=== PATIENT | female | born 1955 | race Caucasian/White ===

== ENCOUNTER 2019-08-21 13:55 | Outpatient (RCR) | payer MEDICARE, SELFPAY ==
[2019-08-21 14:48] LABS: Basophils # 0.1 10^3/uL (0.0-0.1); Basophils % 0.4 %; Eosinophils # 0.3 10^3/uL (0.0-0.8); Hematocrit 40.6 % (37.0-47.0); Hemoglobin 12.9 g/dL (11.5-15.3); Lymphocytes # 19.6 10^3/uL (0.8-4.8); Mean Corpuscular HGB Conc 31.8 g/dL (30.0-36.0); Mean Corpuscular Hemoglobin 29.8 pg (28.0-34.0); Mean Corpuscular Volume 93.8 fL (81-99); Mean Platelet Volume 10.6 fL (7.4-10.4); Monocytes # 0.9 10^3/uL (0.2-0.9); Monocytes % 3.3 %; Neutrophils # 4.6 10^3/uL (1.8-7.7); Nucleated Red Blood Cells % 0 %; Platelet Count 347 10^3/cmm (130-400); Red Blood Count 4.33 10^6/uL (4.1-5.3); Red Cell Distribution Width 13.7 % (12.1-15.1); White Blood Count 25.4 10^3/uL (4.0-10.0)
[2019-08-21 15:07] LABS: Alanine Aminotransferase 14 U/L (0-33); Albumin Level 5.5 g/dL (3.5-5.2); Alkaline Phosphatase 106 IU/L (35-105); Anion Gap 16.3 (5-19); Aspartate Amino Transferase 19 U/L (0-32); Blood Urea Nitrogen 9 mg/dL (8-23); Carbon Dioxide 25 mmol/L (22-29); Chloride 102 mmol/L (98-107); Globulin 1.2 g/dL (1.3-4.6); Glomerular Filtration Rate 83.7 mL/min (90-130); Glucose 98 mg/dL (74-106); Lactate Dehydrogenase 176 U/L (135-214); Potassium 4.3 mmol/L (3.5-5.1); Sodium 139 mmol/L (136-145); Total Bilirubin 0.3 mg/dL (0.15-1.2); Total Protein 6.7 g/dL (6.6-8.7)
== END 2019-09-19 23:59 | disposition home or self-care (01) ==
LOC: ONCMED 13:55
PROVIDERS: Family Provider Family Medicine; Visit Provider Internal Medicine Medical Oncology
DX: C91.10 Chronic lymphocytic leukemia of B-cell type not having achieved remission (principal); E78.5 Hyperlipidemia, unspecified; L71.9 Rosacea, unspecified; Z98.1 Arthrodesis status; I34.1 Nonrheumatic mitral (valve) prolapse
CPT/HCPCS: 80053; 83615; 85025

== ENCOUNTER 2019-08-27 12:23 | Outpatient (RCR) | payer MEDICARE, SELFPAY ==
--- NOTE | 2019-09-01 10:43 | ONC FU_ITS ---
Dr. Oakley Patient Follow-Up Note Patient: Sera Ragsdale Unit #: [id number]: [id number] Dicatated By: Randall Oakley M.D.Date of Visit:Aug 27, 2019 Onc Med Follow-up/Prog Note Chief Complaint: Lymphocytosis. History of Present Illness: This is a 63 year-old woman with chronic leukocytic leukemia, Alvarado stage 0. She has been in good general health. In February 2019 she had been seen by Dr. Shell to establish primary care. Her initial evaluation included laboratory studies on 03/20/2019. CBC at that time showed normal hemoglobin at 13.2 g with hematocrit 39.5%. The white blood cell count was elevated at 23,100. The platelet count was normal at 313,000. The differential included 73% lymphocytes, 18% neutrophils, 6% monocytes, and 3% eosinophils. Comprehensive metabolic profile showed normal renal function with BUN 18 and creatinine 0.65 mg/dL. The liver enzymes were normal. Her repeat CBC on 04/10/2019 showed similar findings with hemoglobin 13.0 g, white blood cell count 25,000, and platelet count 312,000. The differential included 83% lymphocytes, 14% neutrophils, and 3% monocytes. I had seen her initially on 05/08/2019. 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 Mantle cell lymphoma was not entirely excluded, but not favored due to strong CD200 expression. She had subsequently returned for a CLL prognostic profile. Her chromosome analysis an abnormal karyotype which included a translocation between chromosomes 2 and 7 as well as a translocation between two chromosomes 14, observed and 16 out of 20 metaphases. The clinical significance of that finding was uncertain. 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 In addition, 66% of her lymphoid cells were noted to be CD19 positive. Of these, 15% showed positivity for ZAP70 and 5% showed positivity for CD38. Overall, the findings were felt to be consistent with an intermediate prognostic profile, and in the setting of early stage disease, observation/expectant management was recommended. Her other medical illnesses include hyperlipidemia and rosacea. She was diagnosed with mitral valve prolapse at age 24. She had an appendectomy in 1969. She underwent L4-L5 laminectomy in 1981 for an injury related blown disc . She had previous surgery on her left foot for an injury. She suffered bilateral ankle fractures in 2017, but did not require surgery. She is a nonsmoker. She is seen for a follow-up visit. She continues to complain that she gets tired, but she still has normal activity. ECOG score is 0. Her appetite is good. Her weight is up a little. She has not had fever. She occasionally has night sweating. She also complains that she gets headaches. She also has had some arthritis pain in her right thumb. She has no focal neurologic symptoms. She has no other significant complaints. Medications: Berberine Complex (500 mg) Capsule Oral Take as Directed, Biotin 1 Tablet (of 5000 mcg) Capsule Oral daily, Cinnamon 1 Capsule (of 500 mg) Oral b.i.d., Multivitamins 1 Capsule Oral daily, Red Yeast Rice 2 Capsule (of 1200 mg) Oral daily Allergies: Adhesives Review of Systems: Constitutional - She complains that she gets tired, but she has normal activity. Her appetite is good. Her weight is up a little. No fever. She occasionally has night sweating. ECOG score is 0, ENMT - She has sinus drainage. No mouth sores. No sore throat or difficulty swallowing, Hematologic/Lymphatic - She bruises easily, Respiratory - No shortness of breath. No cough. No pleuritic pain or hemoptysis, Cardiovascular - No angina pain. No palpitations, Gastrointestinal - No nausea or vomiting. No heartburn or acid reflux. No diarrhea or constipation. No blood in the stool or black stools, Genitourinary (F) - No dysuria or hematuria. No urinary frequency. No urgency or incontinence, Musculoskeletal - She has arthritis in her right thumb. She has no other joint or bone pain, Integumentary - No skin complications, Neurologic - She has headaches occasionally. No dizziness. No numbness/paresthesias or other focal neurologic symptoms, Psychiatric - No anxiety or depression. She has trouble falling asleep. Vital Signs: Performed on Aug 27, 2019 12:36 Height - 64.00 in Weight - 166.8 lbs (LOW) BSA - 1.81 sq.m BMI - 28.63 Temperature - 97.9 F (LOW) Pulse - 89 /min Respiration - 15 /min BP - 134/68 mm(hg) O2 Sat - 98 % Pain - 0 Physical Examination: Constitutional - She looks good generally, Eyes - Sclerae nonicteric. Conjunctivae clear, ENMT - No lesions noted in the oral cavity, Hematologic/Lymphatic - No cervical, clavicular, or axillary adenopathy, Respiratory - Lungs are clear with good air movement bilaterally, Cardiovascular - Heart rhythm is regular. There is no murmur, gallop, or rub noted, Abdomen - Soft. Liver and spleen are not enlarged. There is no abdominal mass or ascites noted and there is no inguinal adenopathy, Extremities - No edema. Pedal pulses are palpable bilaterally, Integumentary - Mild malar erythema, Neurologic - No focal neurologic deficits noted. Lab/Imaging: Test performed on Aug 21, 2019 14:09 Glucose 98 mg/dL LDH, Total 176 IU/L BUN 9 mg/dL Creatinine 0.7 mg/dL Cr Clearance (Est) 94.43 mL/min Sodium 139 mmol/L Potassium 4.3 mmol/L Chloride 102 mmol/L CO2 25 mmol/L Calcium 10.0 mg/dL Protein, Total 6.7 g/dL Albumin 5.5 g/dL Globulin 1.2 g/dL Bilirubin, Total 0.3 mg/dL Alkaline Phosphatase 106 IU/L AST (SGOT) 19 IU/L ALT (SGPT) 14 IU/L WBC 25.4 10^9/L RBC 4.33 10^12/L HGB 12.9 g/dL HCT 40.6 % MCV 93.8 fl MCH 29.8 pg MCHC 31.8 g/dL RDW 13.7 % Platelet Count 347 10^9/L MPV 10.6 fL Neutrophils (Gran) 4.6 10^9/L Lymphocytes 19.6 10^9/L Monocytes 0.9 10^9/L Eosinophils 0.3 10^9/L Basophils 0.1 10^9/L Manual Lymphocytes 77.0 % Manual Monocytes 3.3 % Manual Eosinophils 1.0 % Manual Basophils 0.4 % NRBCs 0.0 /100 WBC Impression: 1. Patient with mild lymphocytosis. Whole blood flow cytometry demonstrated a CD5-positive monoclonal B-cell population felt to be most consistent with atypical chronic leukocytic leukemia/small lymphocytic lymphoma. 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 There were additional abnormalities noted on her cytogenetic study, but these were of uncertain clinical significance. Overall, the findings were felt to be consistent with intermediate prognostic features. By clinical evaluation, she appeared to have early stage disease ( Alvarado stage 0), and observation/expectant management was recommended. 2. She has mild fatigue. It is uncertain to what extent, if any, it may be associated with the CLL. Her other medical illnesses include: 3. Hyperlipidemia. 4. Rosacea. 5. She was diagnosed with mitral valve prolapse at age 24. 6. She had previous lumbar laminectomy for ruptured L4/L5 disc. 7. She suffered bilateral ankle fractures in 2017. She continues to complain of fatigue. As before, it is uncertain to what extent, if any, this may be related to her chronic lymphocytic leukemia. She otherwise does not appear to be symptomatic, and thus far she is not showing any significant disease progression. Plan: She remains on observation/expectant management. I will see her again in 6 months, or sooner as needed. Signed By: Randall Oakley M.D. <<Signature on File>>
== END 2019-09-19 23:59 | disposition home or self-care (01) ==
LOC: ONCMED 12:23
PROVIDERS: Family Provider Family Medicine; PCP Family Medicine; Visit Provider Internal Medicine Medical Oncology
DX: C91.10 Chronic lymphocytic leukemia of B-cell type not having achieved remission (principal); E78.5 Hyperlipidemia, unspecified; L71.9 Rosacea, unspecified; Z98.1 Arthrodesis status; I34.1 Nonrheumatic mitral (valve) prolapse
CPT/HCPCS: 99213; G0463

== ENCOUNTER 2020-01-15 11:35 | Outpatient (CLI) | payer MEDICARE, SELFPAY ==
[2020-01-15 12:05] LABS: Basophils # 0.1 10^3/uL (0.0-0.1); Basophils % 0.5 %; Eosinophils # 0.2 10^3/uL (0.0-0.8); Eosinophils % 0.9 %; Hematocrit 38.1 % (37.0-47.0); Hemoglobin 11.8 g/dL (11.5-15.3); Lymphocytes # 19.6 10^3/uL (0.8-4.8); Lymphocytes % 76.7 %; Mean Corpuscular Hemoglobin 29.4 pg (28.0-34.0); Mean Platelet Volume 10.7 fL (7.4-10.4); Monocytes # 0.9 10^3/uL (0.2-0.9); Monocytes % 3.4 %; Neutrophils # 4.7 10^3/uL (1.8-7.7); Neutrophils % 18.3 %; Nucleated Red Blood Cells % 0 %; Platelet Count 285 10^3/cmm (130-400); Red Blood Count 4.01 10^6/uL (4.1-5.3); Red Cell Distribution Width 13.8 % (12.1-15.1); White Blood Count 25.5 10^3/uL (4.0-10.0)
[2020-01-15 12:17] LABS: Alanine Aminotransferase 15 U/L (0-33); Albumin Level 4.7 g/dL (3.5-5.2); Alkaline Phosphatase 101 IU/L (35-105); Anion Gap 16.2 (5-19); Aspartate Amino Transferase 20 U/L (0-32); Blood Urea Nitrogen 10 mg/dL (8-23); Carbon Dioxide 24 mmol/L (22-29); Chloride 103 mmol/L (98-107); Globulin 2.2 g/dL (1.3-4.6); Glomerular Filtration Rate 83.7 mL/min (90-130); Glucose 93 mg/dL (65-115); Osmolality Calculated 284 mOsm/kg (285-295); Potassium 4.2 mmol/L (3.5-5.1); Sodium 139 mmol/L (136-145); Total Bilirubin 0.4 mg/dL (0.15-1.2); Total Protein 6.9 g/dL (6.6-8.7)
[2020-01-15 12:43] LABS: Slide Review Slide Review Perform
== END 2020-01-15 11:36 | disposition home or self-care (01) ==
LOC: ONCMED 11:41
PROVIDERS: PCP Family Medicine; Visit Provider Internal Medicine Medical Oncology
DX: C91.10 Chronic lymphocytic leukemia of B-cell type not having achieved remission (principal)
CPT/HCPCS: 36415; 80053; 85025

== ENCOUNTER 2020-01-19 13:02 | Outpatient (CLI) | payer MEDICARE, SELFPAY ==
--- NOTE | 2020-01-23 17:06 | ONC FU_ITS ---
Dr. Oakley Patient Follow-Up Note Patient: Sera Ragsdale Unit #: [id number]: 1955 Dicatated By: Randall Oakley M.D.Date of Visit:Jan 19, 2020 Onc Med Follow-up/Prog Note Chief Complaint: Lymphocytosis. History of Present Illness: This is a 64 year-old woman with chronic leukocytic leukemia, Alvarado stage 0 at initial diagnosis in April 2019. She has been in good general health. In February 2019 she had been seen by Dr. Shell to establish primary care. Her initial evaluation included laboratory studies on 03/20/2019. CBC at that time showed normal hemoglobin at 13.2 g with hematocrit 39.5%. The white blood cell count was elevated at 23,100. The platelet count was normal at 313,000. The differential included 73% lymphocytes, 18% neutrophils, 6% monocytes, and 3% eosinophils. Comprehensive metabolic profile showed normal renal function with BUN 18 and creatinine 0.65 mg/dL. The liver enzymes were normal. Her repeat CBC on 04/10/2019 showed similar findings with hemoglobin 13.0 g, white blood cell count 25,000, and platelet count 312,000. The differential included 83% lymphocytes, 14% neutrophils, and 3% monocytes. I had seen her initially on 05/08/2019. 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 Mantle cell lymphoma was not entirely excluded, but not favored due to strong CD200 expression. She had subsequently returned for a CLL prognostic profile. Her chromosome analysis an abnormal karyotype which included a translocation between chromosomes 2 and 7 as well as a translocation between two chromosomes 14, observed and 16 out of 20 metaphases. The clinical significance of that finding was uncertain. 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 In addition, 66% of her lymphoid cells were noted to be CD19 positive. Of these, 15% showed positivity for ZAP70 and 5% showed positivity for CD38. Overall, the findings were felt to be consistent with an intermediate prognostic profile, and in the setting of early stage disease, observation/expectant management was recommended. Her other medical illnesses include hyperlipidemia and rosacea. She was diagnosed with mitral valve prolapse at age 24. She had an appendectomy in 1969. She underwent L4-L5 laminectomy in 1981 for an injury related blown disc . She had previous surgery on her left foot for an injury. She suffered bilateral ankle fractures in 2017, but did not require surgery. She is a nonsmoker. She is seen for a follow-up visit. She indicates that in September she had a flulike illness which lasted 3-1/2 to 4 weeks. During that time her weight dropped 25 pounds. She has since then been feeling better and she is regained all but 6 pounds. She complains that she still gets tired, but her activity is pretty much normal. Her appetite is good now. She has not had fever. She sometimes has sweating at night. She complains that her nose runs more. She does not complain of shortness of breath, cough, or chest pain. She has no GI or complaints. She has been having pain in her right wrist and thumb. She also has some arthritis pain in her knees. She says she does get headaches. She has no focal neurologic symptoms. Medications: Berberine Complex (500 mg) Capsule Oral daily, Biotin 1 Tablet (of 5000 mcg) Capsule Oral daily, Cinnamon 1 Capsule (of 500 mg) Oral b.i.d., Multivitamins 1 Capsule Oral daily, Red Yeast Rice 2 Capsule (of 1200 mg) Oral daily Allergies: Adhesives Review of Systems: Constitutional - She is generally feeling good. Her energy is pretty good. She has mostly normal activity. She had a significant illness in [facility] that lasted 2-3 weeks and caused her to lose nearly 25 pounds. Her appetite has since returned to normal and her weight is down about six pounds from her normal. No fever or chills. She has occasional hot flashes with night sweats. This first occurred a few weeks ago. ECOG score is 0, ENMT - She has a persistent runny nose. No mouth sores. No sore throat or difficulty swallowing, Hematologic/Lymphatic - Denies easy bruising. She has a few enlarged lymph nodes that has been present 1-2 weeks, Respiratory - No shortness of breath. No cough. No pleuritic pain or hemoptysis, Cardiovascular - No angina pain. No palpitations, Gastrointestinal - No nausea or vomiting. No heartburn or acid reflux. No diarrhea or constipation. No blood in the stool or black stools, Genitourinary (F) - No dysuria or hematuria. No urinary frequency. No urgency or incontinence, Musculoskeletal - She has arthritis pain in her wrist and hands, and she has occasional flare ups in her knees, Integumentary - No skin complications, Neurologic - She has occasional headaches. No dizziness. No numbness or tingling. No other focal neurologic symptoms, Psychiatric - No anxiety or depression. No insomnia. Vital Signs: Performed on Jan 19, 2020 13:11 Height - 64.00 in Weight - 160.0 lbs (LOW) BSA - 1.78 sq.m BMI - 27.46 Temperature - 98.0 F (LOW) Pulse - 70 /min Respiration - 18 /min BP - 141/68 mm(hg) (HIGH) O2 Sat - 98 % Pain - 0 Physical Examination: Constitutional - She looks good generally, Eyes - Sclerae nonicteric. Conjunctivae clear, ENMT - No lesions noted in the oral cavity, Hematologic/Lymphatic - She has tiny cervical nodes palpable bilaterally and there is a slightly more prominent occipital node on the left. There is no clavicular or axillary adenopathy noted, Respiratory - Lungs are clear with good air movement bilaterally, Cardiovascular - Heart rhythm is regular. There is a II/ systolic murmur. There is no gallop or rub noted, Abdomen - Soft. Liver and spleen are not enlarged. There is no abdominal mass or ascites noted and there is no inguinal adenopathy, Extremities - No edema, Neurologic - No focal neurologic deficits noted. Lab/Imaging: Test performed on January 15, 2020 11:50 Sodium 139 mmol/L Potassium 4.2 mmol/L Chloride 103 mmol/L CO2 24 mmol/L Anion Gap 16.2 BUN 10 mg/dL Creatinine 0.7 mg/dL Cr Clearance (Est) 94.4300 mL/min eGFR 83.7 mL/min Glucose 93 mg/dL Calcium 10.0 mg/dL Protein, Total 6.9 g/dL Albumin 4.7 g/dL Globulin 2.2 g/dL Bilirubin, Total 0.4 mg/dL ALT (SGPT) 15 U/L AST (SGOT) 20 U/L Alkaline Phosphatase 101 IU/L WBC 25.5 10 3/uL RBC 4.01 10 6/uL HGB 11.8 g/dL HCT 38.1 % MCV 95.0 fL MCH 29.4 pg MCHC 31.0 g/dL RDW 13.8 % Platelet Count 285 10 3/cmm MPV 10.7 fL Neutrophils 4.7 10 3/uL Lymphocytes 19.6 10 3/uL Monocytes 0.9 10 3/uL Eosinophils 0.2 10 3/uL Basophils 0.1 10 3/uL Neutrophil % 18.3 % Lymphocyte % 76.7 % Monocyte % 3.4 % Eosinophil % 0.9 % Basophils % 0.5 % CBC Slide Review Slide Review Perform SLIDE REVIEW AGREES WITH AUTOMATED RESULTS ST Impression: 1. Patient with mild lymphocytosis. 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 There were additional abnormalities noted on her cytogenetic study, but these were of uncertain clinical significance. Overall, the findings were felt to be consistent with intermediate prognostic features. By clinical evaluation, she appeared to have early stage disease ( Alvarado stage 0), and observation/expectant management was recommended. 2. She had mild fatigue. Her other medical illnesses include: 3. Hyperlipidemia. 4. Rosacea. 5. She was diagnosed with mitral valve prolapse at age 24. 6. She had previous lumbar laminectomy for ruptured L4/L5 disc. 7. She suffered bilateral ankle fractures in 2017. During follow-up her lymphocyte count has basically remained stable, but she has become mildly anemic. She also has a follow-up mild cervical lymphadenopathy. She did have a significant flulike illness in September, which may account for some of the fatigue and possibly for some decline in the hemoglobin/hematocrit levels. However, at a minimum her disease has progressed to stage I. Plan: She remains on observation/expectant management, but I will now plan to see her again at a 3-month interval. If there is further decline in her hemoglobin/hematocrit levels, she will need to start treatment. Signed By: Randall Oakley M.D. <<Signature on File>>
== END 2020-01-19 13:03 | disposition home or self-care (01) ==
LOC: ONCMED 13:04
PROVIDERS: PCP Family Medicine; Visit Provider Internal Medicine Medical Oncology
DX: C91.10 Chronic lymphocytic leukemia of B-cell type not having achieved remission (principal); R59.0 Localized enlarged lymph nodes; D64.9 Anemia, unspecified; E78.5 Hyperlipidemia, unspecified; L71.9 Rosacea, unspecified; I34.1 Nonrheumatic mitral (valve) prolapse; Z87.39 Personal history of other diseases of the musculoskeletal system and connective tissue; Z87.81 Personal history of (healed) traumatic fracture
CPT/HCPCS: G0463

== ENCOUNTER 2020-04-12 13:07 | Outpatient (CLI) | payer MEDICARE, SELFPAY ==
[2020-04-12 13:59] LABS: Hematocrit 37.2 % (37.0-47.0); Hemoglobin 11.8 g/dL (11.5-15.3); Mean Corpuscular HGB Conc 31.7 g/dL (30.0-36.0); Mean Corpuscular Hemoglobin 30.2 pg (28.0-34.0); Mean Corpuscular Volume 95.1 fL (81-99); Platelet Count 265 10^3/cmm (130-400); Red Blood Count 3.91 10^6/uL (4.1-5.3); Red Cell Distribution Width 14.1 % (12.1-15.1); White Blood Count 27.5 10^3/uL (4.0-10.0)
[2020-04-12 15:21] LABS: Absolute Segmented Neutrophil 17.6 10/cmm (1.6-7.1); Segmented Neutrophils 64 %; Slide Review Slide Review Perform; Total Cells Counted 100 (0-100)
[2020-04-12 15:22] LABS: Anisocytosis 1+; Lymphocytes 46 %; Monocytes Absolute 0.6 10^3/cmm (0.1-0.6); Platelet Estimate Normal (Normal); Smudge Cells 1+
[2020-04-12 15:23] LABS: Lymphocytes Absolute 17.6 10^3/cmm (1.2-3.4)
== END 2020-04-12 13:08 | disposition home or self-care (01) ==
LOC: ONCMED 13:10
PROVIDERS: PCP Family Medicine; Visit Provider Internal Medicine Medical Oncology
DX: C91.10 Chronic lymphocytic leukemia of B-cell type not having achieved remission (principal)
CPT/HCPCS: 85007; 85025

== ENCOUNTER 2020-07-27 09:15 | Outpatient (CLI) | payer MEDICARE, SELFPAY ==
[2020-07-27 10:33] LABS: Alanine Aminotransferase 16 U/L (0-33); Albumin Level 4.7 g/dL (3.5-5.2); Alkaline Phosphatase 107 IU/L (35-105); Anion Gap 17.3 (5-19); Aspartate Amino Transferase 20 U/L (0-32); Blood Urea Nitrogen 9 mg/dL (8-23); Calcium 9.6 mg/dL (8.5-10.5); Carbon Dioxide 25 mmol/L (22-29); Chloride 102 mmol/L (98-107); Globulin 2.2 g/dL (1.3-4.6); Glomerular Filtration Rate 123.4 mL/min (90-130); Glucose 99 mg/dL (65-115); Lactate Dehydrogenase 178 U/L (135-214); Osmolality Calculated 289 mOsm/kg (285-295); Potassium 4.3 mmol/L (3.5-5.1); Sodium 140 mmol/L (136-145); Total Bilirubin 0.4 mg/dL (0.15-1.2); Total Protein 6.9 g/dL (6.6-8.7)
[2020-07-27 10:42] LABS: Basophils # 0.1 10^3/uL (0.0-0.1); Basophils % 0.4 %; Eosinophils # 0.2 10^3/uL (0.0-0.8); Eosinophils % 0.8 %; Hematocrit 39.4 % (37.0-47.0); Hemoglobin 12.6 g/dL (11.5-15.3); Lymphocytes % 78.8 %; Mean Corpuscular Hemoglobin 29.3 pg (28.0-34.0); Mean Corpuscular Volume 91.6 fL (81-99); Mean Platelet Volume 10.9 fL (7.4-10.4); Monocytes # 1.5 10^3/uL (0.2-0.9); Monocytes % 5.2 %; Neutrophils # 4.27 10^3/uL (1.8-7.7); Neutrophils % 14.6 %; Nucleated Red Blood Cells % 0 %; Platelet Count 309 10^3/cmm (130-400); White Blood Count 29.1 10^3/uL (4.0-10.0)
[2020-07-27 11:16] LABS: Slide Review Slide Review Perform
--- NOTE | 2020-07-28 07:32 | ONC FU_ITS ---
Dr. Oakley Patient Follow-Up Note Patient: Sera Ragsdale Unit #: [id number]: 1955 Dicatated By: Randall Oakley M.D.Date of Visit:Jul 27, 2020 Onc Med Follow-up/Prog Note Chief Complaint: Chronic blastic leukemia. History of Present Illness: This is a 64 year-old woman with chronic leukocytic leukemia, Alvarado stage 0 at initial diagnosis in April 2019. She has been in good general health. In February 2019 she had been seen by Dr. Shell to establish primary care. Her initial evaluation included laboratory studies on 03/20/2019. CBC at that time showed normal hemoglobin at 13.2 g with hematocrit 39.5%. The white blood cell count was elevated at 23,100. The platelet count was normal at 313,000. The differential included 73% lymphocytes, 18% neutrophils, 6% monocytes, and 3% eosinophils. Comprehensive metabolic profile showed normal renal function with BUN 18 and creatinine 0.65 mg/dL. The liver enzymes were normal. Her repeat CBC on 04/10/2019 showed similar findings with hemoglobin 13.0 g, white blood cell count 25,000, and platelet count 312,000. The differential included 83% lymphocytes, 14% neutrophils, and 3% monocytes. I had seen her initially on 05/08/2019. 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 Mantle cell lymphoma was not entirely excluded, but not favored due to strong CD200 expression. She had subsequently returned for a CLL prognostic profile. Her chromosome analysis an abnormal karyotype which included a translocation between chromosomes 2 and 7 as well as a translocation between two chromosomes 14, observed and 16 out of 20 metaphases. The clinical significance of that finding was uncertain. 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 In addition, 66% of her lymphoid cells were noted to be CD19 positive. Of these, 15% showed positivity for ZAP70 and 5% showed positivity for CD38. Overall, the findings were felt to be consistent with an intermediate prognostic profile, and in the setting of early stage disease, observation/expectant management was recommended. Her other medical illnesses include hyperlipidemia and rosacea. She was diagnosed with mitral valve prolapse at age 24. She had an appendectomy in 1969. She underwent L4-L5 laminectomy in 1981 for an injury related blown disc . She had previous surgery on her left foot for an injury. She suffered bilateral ankle fractures in 2017, but did not require surgery. She is a nonsmoker. She is seen for a follow-up visit. She does have some fatigue, but she has normal activity and she stays busy. ECOG score 0. Her appetite is okay. Her weight is down a few pounds. She has not had fever. She does have some night sweating, which she just attributes to layering up . She has no shortness of breath, cough, or chest pain. She has no GI or complaints. She has been having some pain in her right wrist and thumb. She has just occasional headache. She has no focal neurologic symptoms. Medications: Berberine Complex (500 mg) Capsule Oral daily, Biotin 1 Tablet (of 5000 mcg) Capsule Oral daily, Cinnamon 1 Capsule (of 500 mg) Oral b.i.d., Multivitamins 1 Capsule Oral daily, Red Yeast Rice 2 Capsule (of 1200 mg) Oral daily Allergies: Adhesives Review of Systems: Constitutional - She has some fatigue, but her activity is normal and she stays busy. Her appetite has been okay. Her weight is down a few pounds. She has not had fever. She does have some sweating at night, attributable to layering up . ECOG score is 0, ENMT - No sinus congestion/drainage. No mouth sores. No sore throat or difficulty swallowing, Hematologic/Lymphatic - She has easy bruising, Respiratory - No shortness of breath. No cough. No pleuritic pain or hemoptysis, Cardiovascular - No angina pain. No palpitations, Gastrointestinal - No nausea or vomiting. No heartburn or acid reflux. No diarrhea or constipation. No blood in the stool or black stools, Genitourinary (F) - No dysuria or hematuria. No urinary frequency. No urgency or incontinence, Musculoskeletal - She has been having pain in her right wrist and thumb. She has no other joint or bone pain, Integumentary - No skin rash, Neurologic - She has headache occasionally. No dizziness. No numbness or tingling. No other focal neurologic symptoms, Psychiatric - No anxiety or depression. She does not sleep well at night.. Vital Signs: Performed on Jul 27, 2020 10:48 Height - 64.00 in Weight - 154.4 lbs (LOW) BSA - 1.75 sq.m BMI - 26.50 Temperature - 98.2 F (LOW) Pulse - 68 /min Respiration - 20 /min BP - 124/67 mm(hg) O2 Sat - 97 % Pain - 0 Physical Examination: Constitutional - She looks good generally, Eyes - Sclerae nonicteric. Conjunctivae clear, ENMT - No lesions noted in the oral cavity, Hematologic/Lymphatic - Her just tiny posterior cervical nodes and occipital nodes on the left. There is no clavicular or axillary adenopathy noted, Respiratory - Lungs are clear with good air movement bilaterally, Cardiovascular - Heart rhythm is regular. There is a II/ systolic murmur. There is no gallop or rub noted, Abdomen - Soft. Liver and spleen are not enlarged. There is no abdominal mass or ascites noted and there is no inguinal adenopathy, Extremities - No edema, Neurologic - No focal neurologic deficits noted. Lab/Imaging: Test performed on Jul 27, 2020 09:27 LDH (Total) 178 U/L Sodium 140 mmol/L Potassium 4.3 mmol/L Chloride 102 mmol/L CO2 25 mmol/L Anion Gap 17.3 BUN 9 mg/dL Creatinine 0.5 mg/dL Cr Clearance (Est) 122.37 mL/min eGFR 123.4 mL/min Glucose 99 mg/dL Osmolality - Calculated 289 mOsm/kg Calcium 9.6 mg/dL Protein, Total 6.9 g/dL Albumin 4.7 g/dL Globulin 2.2 g/dL Bilirubin, Total 0.4 mg/dL ALT (SGPT) 16 U/L AST (SGOT) 20 U/L Alkaline Phosphatase 107 IU/L WBC 29.1 10 3/uL RBC 4.30 10 6/uL HGB 12.6 g/dL HCT 39.4 % MCV 91.6 fL MCH 29.3 pg MCHC 32.0 g/dL RDW 14.0 % Platelet Count 309 10 3/cmm MPV 10.9 fL Neutrophils 4.27 10 3/uL Lymphocytes 23.0 10 3/uL Monocytes 1.5 10 3/uL Eosinophils 0.2 10 3/uL Basophils 0.1 10 3/uL Neutrophil % 14.6 % Lymphocyte % 78.8 % Monocyte % 5.2 % Eosinophil % 0.8 % Basophils % 0.4 % NRBC % 0 % CBC Slide Review Slide Review Perform SLIDE REVIEW AGREES WITH AUTOMATED RESULTS ST Impression: 1. Patient with mild lymphocytosis. 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 There were additional abnormalities noted on her cytogenetic study, but these were of uncertain clinical significance. Overall, the findings were felt to be consistent with intermediate prognostic features. By clinical evaluation, she appeared to have early stage disease ( Alvarado stage 0), and observation/expectant management was recommended. 2. She had mild fatigue. Her other medical illnesses include: 3. Hyperlipidemia. 4. Rosacea. 5. She was diagnosed with mitral valve prolapse at age 24. 6. She had previous lumbar laminectomy for ruptured L4/L5 disc. 7. She suffered bilateral ankle fractures in 2017. During follow-up her lymphocyte count has basically remained stable. She developed mild cervical lymphadenopathy, consistent with stage I disease. Overall, though, she has been doing well clinically. Thus far there has been no indication for treatment of the chronic lymphocytic leukemia. Plan: She remains on observation/expectant management. I will see her again in 6 months, or sooner as needed. Signed By: Randall Oakley M.D. <<Signature on File>>
== END 2020-07-27 09:16 | disposition home or self-care (01) ==
LOC: ONCMED 09:18
PROVIDERS: PCP Family Medicine; Visit Provider Internal Medicine Medical Oncology
DX: C91.10 Chronic lymphocytic leukemia of B-cell type not having achieved remission (principal); E78.5 Hyperlipidemia, unspecified; L71.9 Rosacea, unspecified; I34.1 Nonrheumatic mitral (valve) prolapse
CPT/HCPCS: 36415; 80053; 83615; 85025; G0463

== ENCOUNTER 2021-01-25 12:29 | Outpatient (CLI) | payer MEDICARE, SELFPAY ==
[2021-01-25 13:13] LABS: Basophils # 0.2 10^3/uL (0.0-0.1); Basophils % 0.4 %; Eosinophils # 0.2 10^3/uL (0.0-0.8); Eosinophils % 0.7 %; Hematocrit 37.4 % (37.0-47.0); Hemoglobin 12.1 g/dL (11.5-15.3); Lymphocytes # 27.7 10^3/uL (0.8-4.8); Lymphocytes % 80.1 %; Mean Corpuscular HGB Conc 32.4 g/dL (30.0-36.0); Mean Corpuscular Volume 92.8 fL (81-99); Mean Platelet Volume 10.8 fL (7.4-10.4); Monocytes % 5.7 %; Neutrophils # 4.46 10^3/uL (1.8-7.7); Neutrophils % 12.9 %; Nucleated Red Blood Cells % 0 %; Platelet Count 267 10^3/cmm (130-400); Red Blood Count 4.03 10^6/uL (4.1-5.3)
[2021-01-25 13:42] LABS: Alanine Aminotransferase 12 U/L (0-33); Albumin Level 4.5 g/dL (3.5-5.2); Alkaline Phosphatase 103 IU/L (35-105); Anion Gap 18.2 (5-19); Aspartate Amino Transferase 19 U/L (0-32); Blood Urea Nitrogen 7 mg/dL (8-23); Calcium 8.9 mg/dL (8.5-10.5); Carbon Dioxide 21 mmol/L (22-29); Chloride 103 mmol/L (98-107); Globulin 1.7 g/dL (1.3-4.6); Glomerular Filtration Rate 159.2 mL/min (90-130); Glucose 84 mg/dL (65-115); Lactate Dehydrogenase 207 U/L (135-214); Osmolality Calculated 283 mOsm/kg (285-295); Potassium 4.2 mmol/L (3.5-5.1); Sodium 138 mmol/L (136-145); Total Bilirubin 0.4 mg/dL (0.15-1.2); Total Protein 6.2 g/dL (6.6-8.7)
[2021-01-25 13:43] LABS: White Blood Count 34.5 10^3/uL (4.0-10.0)
[2021-01-25 13:46] LABS: Slide Review Slide Review Perform
--- NOTE | 2021-01-26 06:38 | ONC FU_ITS ---
Dr. Oakley Patient Follow-Up Note Patient: Sera Ragsdale Unit #: [id number]: 1955 Dicatated By: Randall Oakley M.D.Date of Visit:Jan 25, 2021 Onc Med Follow-up/Prog Note Chief Complaint: Chronic lymphocytic leukemia. History of Present Illness: This is a 65 year-old woman with chronic leukocytic leukemia, Alvarado stage 0 at initial diagnosis in April 2019. She has been in good general health. In February 2019 she had been seen by Dr. Shell to establish primary care. Her initial evaluation included laboratory studies on 03/20/2019. CBC at that time showed normal hemoglobin at 13.2 g with hematocrit 39.5%. The white blood cell count was elevated at 23,100. The platelet count was normal at 313,000. The differential included 73% lymphocytes, 18% neutrophils, 6% monocytes, and 3% eosinophils. Comprehensive metabolic profile showed normal renal function with BUN 18 and creatinine 0.65 mg/dL. The liver enzymes were normal. Her repeat CBC on 04/10/2019 showed similar findings with hemoglobin 13.0 g, white blood cell count 25,000, and platelet count 312,000. The differential included 83% lymphocytes, 14% neutrophils, and 3% monocytes. I had seen her initially on 05/08/2019. 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 Mantle cell lymphoma was not entirely excluded, but not favored due to strong CD200 expression. She had subsequently returned for a CLL prognostic profile. Her chromosome analysis an abnormal karyotype which included a translocation between chromosomes 2 and 7 as well as a translocation between two chromosomes 14, observed and 16 out of 20 metaphases. The clinical significance of that finding was uncertain. 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 In addition, 66% of her lymphoid cells were noted to be CD19 positive. Of these, 15% showed positivity for ZAP70 and 5% showed positivity for CD38. Overall, the findings were felt to be consistent with an intermediate prognostic profile, and in the setting of early stage disease, observation/expectant management was recommended. Her other medical illnesses include hyperlipidemia and rosacea. She was diagnosed with mitral valve prolapse at age 24. She had an appendectomy in 1969. She underwent L4-L5 laminectomy in 1981 for an injury related blown disc . She had previous surgery on her left foot for an injury. She suffered bilateral ankle fractures in 2017, but did not require surgery. She is a nonsmoker. She is seen for a follow-up visit. She has been feeling pretty good generally, though she says she has been tired some. She has normal activity. ECOG score is 0. Her appetite is good. She has gained weight. She has not had fever. She sometimes has hot flashes/sweating. She also sometimes has cough. She does not complain of shortness of breath or chest pain. She has no GI or complaints. She does have some joint pain, particularly in the right wrist. She has just occasional headache. She has no focal neurologic symptoms. Medications: Berberine Complex (500 mg) Capsule Oral daily, Cinnamon 1 Capsule (of 500 mg) Oral b.i.d., Multivitamins 1 Capsule Oral daily, Red Yeast Rice 2 Capsule (of 1200 mg) Oral daily Allergies: Adhesives Vital Signs: Performed on Jan 25, 2021 15:48 Height - 64.00 in Weight - 159.2 lbs (HIGH) BSA - 1.78 sq.m BMI - 27.33 Temperature - 97.9 F (LOW) Pulse - 72 /min Respiration - 18 /min BP - 137/76 mm(hg) O2 Sat - 98 % Pain - 0 Fatigue - 0 Physical Examination: Constitutional - She looks good generally, Eyes - Sclerae nonicteric. Conjunctivae clear, ENMT - No lesions noted in the oral cavity, Hematologic/Lymphatic - There is a small posterior cervical node on the left. There is no clavicular or axillary adenopathy noted, Respiratory - Lungs are clear with good air movement bilaterally, Cardiovascular - Heart rhythm is regular. There is a II/ systolic murmur. There is no gallop or rub noted, Abdomen - Soft. Liver and spleen are not enlarged. There is no abdominal mass or ascites noted and there is no inguinal adenopathy, Extremities - No edema. Pedal pulses are palpable bilaterally, Neurologic - No focal neurologic deficits noted. Lab/Imaging: Test performed on Jan 25, 2021 12:50 LDH (Total) 207 U/L Sodium 138 mmol/L Potassium 4.2 mmol/L Chloride 103 mmol/L CO2 21 mmol/L Anion Gap 18.2 BUN 7 mg/dL Creatinine 0.4 mg/dL Cr Clearance (Est) 155.58 mL/min eGFR 159.2 mL/min Glucose 84 mg/dL Osmolality - Calculated 283 mOsm/kg Calcium 8.9 mg/dL Protein, Total 6.2 g/dL Albumin 4.5 g/dL Globulin 1.7 g/dL Bilirubin, Total 0.4 mg/dL ALT (SGPT) 12 U/L AST (SGOT) 19 U/L Alkaline Phosphatase 103 IU/L WBC 34.5 10 3/uL RBC 4.03 10 6/uL HGB 12.1 g/dL HCT 37.4 % MCV 92.8 fL MCH 30.0 pg MCHC 32.4 g/dL RDW 14.0 % Platelet Count 267 10 3/cmm MPV 10.8 fL Neutrophils 4.46 10 3/uL Lymphocytes 27.7 10 3/uL Monocytes 2.0 10 3/uL Eosinophils 0.2 10 3/uL Basophils 0.2 10 3/uL Neutrophil % 12.9 % Lymphocyte % 80.1 % Monocyte % 5.7 % Eosinophil % 0.7 % Basophils % 0.4 % NRBC % 0 % CBC Slide Review Slide Review Perform SLIDE REVIEW AGREES WITH AUTOMATED RESULTS Problem List: 1. 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 2. Hyperlipidemia. 3. Rosacea. 4. She was diagnosed with mitral valve prolapse at age 24. 5. She had previous lumbar laminectomy for ruptured L4/L5 disc. 6. She suffered bilateral ankle fractures in 2017. Problems Addressed with this Encounter and Plan: Patient with mild lymphocytosis. 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 There were additional abnormalities noted on her cytogenetic study, but these were of uncertain clinical significance. Overall, the findings were felt to be consistent with intermediate prognostic features. By clinical evaluation, she appeared to have early stage disease ( Alvarado stage 0), and observation/expectant management was recommended. During follow-up her lymphocyte count had increased gradually and she developed mild cervical lymphadenopathy, consistent with stage I disease. Her clinical status, though, has remained stable and overall she continues to have early stage, asymptomatic disease. As such, she continues on observation/expectant management. I will see her again in 6 months. Signed By: Randall Oakley M.D. <<Signature on File>>
== END 2021-01-25 12:30 | disposition home or self-care (01) ==
LOC: ONCMED 12:36
PROVIDERS: PCP Family Medicine; Visit Provider Internal Medicine Medical Oncology
DX: C91.10 Chronic lymphocytic leukemia of B-cell type not having achieved remission (principal); E78.5 Hyperlipidemia, unspecified; L71.9 Rosacea, unspecified; I34.1 Nonrheumatic mitral (valve) prolapse
CPT/HCPCS: 36415; 80053; 83615; 85025; G0463

== ENCOUNTER 2021-02-08 14:02 | Emergency (ER) | payer MEDICARE, SELFPAY ==
[2021-02-08 14:15] VITALS: BP 143/81; PULSE 65; RESP 16; TEMP 36.6; O2SAT 100; BMI 26.2
--- NOTE | 2021-02-08 14:23 | W.ED.GENADLT ---
HPI - General Adult General: Chief complaint: Recheck/Abnormal Lab/Rx Stated complaint: Rabies shot Time Seen by Provider: 02/08/21 14:04 Source: patient Mode of arrival: ambulatory Limitations: no limitations History of Present Illness: HPI narrative: Patient is a 65-year-old female who presents to ED today along with her after they were referred here by the local health department for rabies post-exposure prophylaxis. Patient tells me her and her were helping out with two of their neighbors horses who suddenly became ill. states that one of the horses began foaming at the mouth and had diffuse neurological symptoms to the point where it could no longer stand or it would tip over. She states horse was acting very abnormal. They state shortly after the second horse then became ill with identical symptoms. There was no direct contact with animal saliva that they are aware of but states horse was slinging it everywhere . Animals were put down and [place] vet came and sent one of the heads to be tested for rabies. Patient contacted local Health Dept who recommended starting rabies PEP. Associated symptoms: Reports no associated symptoms; Deny chest pain, confusion, dyspnea, headache(s), malaise, nausea, rash, palpitations or vomiting Treatments prior to arrival: none Review of Systems Const: Denies: fever(s), chills, body aches, change in appetite, change in weight, fatigue, malaise or night sweats Eyes: Denies: change in vision or blurry vision ENMT: Denies: throat pain or odynophagia Card: Denies: chest pain or palpitations Resp: Denies: dyspnea GI: Denies: abdominal pain, nausea or vomiting Musc: Denies: neck pain, back pain or joint pain Skin/Breast: Denies: rash Neuro: Denies: headache(s), numbness in extremities, weakness in extremities, sensory changes, lack of coordination, difficulty walking, frequent falls, dizziness, vertigo, confusion, behavioral changes, Slurred speech present, difficulty communicating thoughts, seizure-like activity or involuntary movements Physical Exam Const: COMMON NORMALS: no acute distress, average body habitus, patient oriented x3, no limitations, healthy appearing, alert and well nourished GENERAL APPEARANCE: cooperative ORIENTATION/CONSCIOUSNESS: Yes awake, Yes oriented to person, Yes oriented to place and Yes oriented to time HENMT: COMMON NORMALS: normocephalic and atraumatic HEAD & SCALP: normocephalic and atraumatic Extremity: COMMON NORMALS: normal to inspection Neuro: DAYAN[place] COMA SCALE: document GCS findings [place] coma scale eye opening: Spontaneous [place] coma scale verbal response: Orientated [place] coma scale motor response: Obey commands [place] coma scale total score: 15 COMMON NORMALS: patient oriented x3 and gait normal SENSORIUM/ORIENTATION: Yes alert, Yes oriented to person, Yes oriented to place and Yes oriented to time Skin: COMMON NORMALS: no rashes or lesions noted GENERAL SKIN EXAM: no rashes or lesions noted Course Vital Signs: Vital signs: Vital Signs Temperature 97.9 F 02/08/21 14:15 Pulse Rate 65 02/08/21 14:36 Respiratory Rate 16 02/08/21 14:36 Blood Pressure 143/81 02/08/21 14:36 Pulse Oximetry 100 02/08/21 14:36 Discharge Plan Discharge Patient Disposition: Home Clinical Impression: Need for post exposure prophylaxis for rabies Condition: Stable Discharge Orders: Discharge ED (Routine); Ordered 02/08/21 Ordered By: Latanya Sanchez Referrals: Johnny Shell MD [Primary Care Provider] - Patient Instructions: Rabies Vaccine (Injection), Rabies Immune Globulin (Injection), Rabies (ED) Activity Restrictions/Additional Instructions: You have been given a schedule for the remainder of your immunizations required for your full post exposure prophylaxis course. These can be completed at [facility]. Coding Level of Care Code ED Warm In Worker for Pratima Fwd Exam Detailed
[2021-02-08 14:36] VITALS: BP 143/81; PULSE 65; RESP 16; O2SAT 100
[2021-02-08] MEDS: rabies vaccine 2.5 unit SDV IM (15:05)
== END 2021-02-08 15:12 | disposition home or self-care (01) ==
PROVIDERS: Emergency Provider Physician Assistant; PCP Family Medicine
DX: Z29.14 Encounter for prophylactic rabies immune globulin (principal); Z23 Encounter for immunization; Z20.3 Contact with and (suspected) exposure to rabies
CPT/HCPCS: 90375; 90471; 90675; 96372; 99283

== ENCOUNTER 2021-06-09 11:00 | Outpatient (CLI) | payer MEDICARE, SELFPAY ==
--- NOTE | 2021-06-09 11:06 | MM_ITS ---
WS: [id number] BILATERAL DIGITAL SCREENING MAMMOGRAM WITH CAD CLINICAL INFORMATION: SCREENING HISTORY: Screening mammogram. No current complaints. COMPARISON: TECHNIQUE: Bilateral CC and MLO views. FINDINGS: Fatty-replaced breasts bilaterally. Bilateral fat-containing axillary lymph nodes similar in appearan ce No suspicious focal mass, asymmetry, calcifications, or architectural distortion. No evidence of m alignancy. MM/[place] [id number] IMPRESSION: BI-RADS: 2-Benign FOLLOW UP: 1 Year Follow-up Recommend return to annual screening mammography.
== END 2021-06-09 11:01 | disposition home or self-care (01) ==
LOC: RADSHAW 11:03
PROVIDERS: PCP Family Medicine; Visit Provider Family Medicine
DX: Z12.31 Encounter for screening mammogram for malignant neoplasm of breast (principal)
CPT/HCPCS: 77067

== ENCOUNTER 2021-08-01 09:12 | Outpatient (CLI) | payer MEDICARE, SELFPAY ==
[2021-08-01 09:48] LABS: Basophils # 0.1 10^3/uL (0.0-0.1); Basophils % 0.2 %; Eosinophils # 0.3 10^3/uL (0.0-0.8); Eosinophils % 0.7 %; Hematocrit 37.9 % (37.0-47.0); Lymphocytes % 82.4 %; Mean Corpuscular HGB Conc 31.7 g/dL (30.0-36.0); Mean Corpuscular Hemoglobin 29.7 pg (28.0-34.0); Mean Corpuscular Volume 93.8 fl (81-99); Mean Platelet Volume 10.6 fL (7.4-10.4); Monocytes # 1.6 10^3/uL (0.2-0.9); Monocytes % 4.6 %; Neutrophils # 4.05 10^3/uL (1.8-7.7); Nucleated Red Blood Cells % 0 %; Platelet Count 225 10^3/cmm (130-400); Red Blood Count 4.04 10^6/uL (4.1-5.3); Red Cell Distribution Width 13.9 % (12.1-15.1)
[2021-08-01 10:07] LABS: Alanine Aminotransferase 9 U/L (0-33); Albumin Level 4.4 g/dL (3.5-5.2); Alkaline Phosphatase 88 IU/L (35-105); Anion Gap 17.8 (5-19); Aspartate Amino Transferase 15 U/L (0-32); Blood Urea Nitrogen 6 mg/dL (8-23); Calcium 8.7 mg/dL (8.5-10.5); Carbon Dioxide 23 mmol/L (22-29); Chloride 106 mmol/L (98-107); Globulin 1.5 g/dL (1.3-4.6); Glomerular Filtration Rate 123.1 mL/min (90-130); Glucose 81 mg/dL (65-115); Lactate Dehydrogenase 162 U/L (135-214); Osmolality Calculated 291 mOsm/kg (285-295); Potassium 4.8 mmol/L (3.5-5.1); Sodium 142 mmol/L (136-145); Total Bilirubin 0.4 mg/dL (0.15-1.2); Total Protein 5.9 g/dL (6.6-8.7)
[2021-08-01 10:28] LABS: Slide Review Slide Review Perform
== END 2021-08-01 09:13 | disposition home or self-care (01) ==
LOC: ONCMED 09:15
PROVIDERS: PCP Family Medicine; Visit Provider Internal Medicine Medical Oncology
DX: C91.10 Chronic lymphocytic leukemia of B-cell type not having achieved remission (principal)
CPT/HCPCS: 36415; 80053; 83615; 85025

== ENCOUNTER 2021-08-03 07:11 | Outpatient (CLI) | payer MEDICARE, SELFPAY ==
--- NOTE | 2021-08-07 11:14 | ONC FU_ITS ---
Dr. Oakley Patient Follow-Up Note Patient: Sera Ragsdale Unit #: [id number]: 1955 Dicatated By: Randall Oakley M.D.Date of Visit:Aug 03, 2021 Onc Med Follow-up/Prog Note Chief Complaint: Chronic lymphocytic leukemia. History of Present Illness: This is a 65 year-old woman with chronic leukocytic leukemia, Alvarado stage 0 at initial diagnosis in April 2019. She has been in good general health. In February 2019 she had been seen by Dr. Shell to establish primary care. Her initial evaluation included laboratory studies on 03/20/2019. CBC at that time showed normal hemoglobin at 13.2 g with hematocrit 39.5%. The white blood cell count was elevated at 23,100. The platelet count was normal at 313,000. The differential included 73% lymphocytes, 18% neutrophils, 6% monocytes, and 3% eosinophils. Comprehensive metabolic profile showed normal renal function with BUN 18 and creatinine 0.65 mg/dL. The liver enzymes were normal. Her repeat CBC on 04/10/2019 showed similar findings with hemoglobin 13.0 g, white blood cell count 25,000, and platelet count 312,000. The differential included 83% lymphocytes, 14% neutrophils, and 3% monocytes. I had seen her initially on 05/08/2019. 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 Mantle cell lymphoma was not entirely excluded, but not favored due to strong CD200 expression. She had subsequently returned for a CLL prognostic profile. Her chromosome analysis an abnormal karyotype which included a translocation between chromosomes 2 and 7 as well as a translocation between two chromosomes 14, observed and 16 out of 20 metaphases. The clinical significance of that finding was uncertain. 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 In addition, 66% of her lymphoid cells were noted to be CD19 positive. Of these, 15% showed positivity for ZAP70 and 5% showed positivity for CD38. Overall, the findings were felt to be consistent with an intermediate prognostic profile, and in the setting of early stage disease expectant management was recommended. Her other medical illnesses include hyperlipidemia and rosacea. She was diagnosed with mitral valve prolapse at age 24. She had an appendectomy in 1969. She underwent L4-L5 laminectomy in 1981 for an injury related blown disc . She had previous surgery on her left foot for an injury. She suffered bilateral ankle fractures in 2017, but did not require surgery. She is a nonsmoker. She is seen for a follow-up visit. She has been feeling good generally. She says she does get tired, but she is very active and she has normal activity. ECOG score is 0. She has good appetite. She has no fever or night sweats. She has been having some dental problems including abscessed teeth and gum infection, and she is scheduled to have some dental work. She sometimes has sinus drainage, and she occasionally has cough. She does not complain of shortness of breath or chest pain. She has no GI or complaints. She has some pain in her ankles and feet, right worse than left. She has no other joint or bone pain. She says she does get headaches. She does not complain of dizziness, and she has no focal neurologic symptoms. Medications: Berberine Complex (500 mg) Capsule Oral daily, Cinnamon 1 Capsule (of 500 mg) Oral b.i.d., Multivitamins 1 Capsule Oral daily, Red Yeast Rice 2 Capsule (of 1200 mg) Oral daily, SM Vitamin C 1 Tablet Oral daily, Zinc 2 Tablet (of 50 mg) Lozenge Mouth/throat daily Allergies: Adhesives Vital Signs: Performed on Aug 03, 2021 16:41 Height - 64.00 in Weight - 155.8 lbs (LOW) BSA - 1.76 sq.m BMI - 26.74 Temperature - 97.6 F (LOW) Pulse - 75 /min Respiration - 16 /min BP - 127/79 mm(hg) O2 Sat - 98 % Pain - 0 Fatigue - 4 Physical Examination: Constitutional - She looks good generally, Eyes - Sclerae nonicteric. Conjunctivae clear, ENMT - No lesions noted in the oral cavity, Hematologic/Lymphatic - There is a palpable occipital node on the left, and there are tiny cervical nodes palpable bilaterally. There is no clavicular or axillary adenopathy noted, Respiratory - Lungs are clear with good air movement bilaterally, Cardiovascular - Heart rhythm is regular. There is a II/ systolic murmur. There is no gallop or rub noted, Abdomen - Soft. Liver and spleen are not enlarged. There is no abdominal mass or ascites noted and there is no inguinal adenopathy, Extremities - No edema, Neurologic - No focal neurologic deficits noted. Lab/Imaging: Test performed on Aug 01, 2021 09:36 LDH (Total) 162 U/L Sodium 142 mmol/L Potassium 4.8 mmol/L Chloride 106 mmol/L CO2 23 mmol/L Anion Gap 17.8 BUN 6 mg/dL Creatinine 0.5 mg/dL Cr Clearance (Est) 124.4700 mL/min eGFR 123.1 mL/min Glucose 81 mg/dL Osmolality - Calculated 291 mOsm/kg Calcium 8.7 mg/dL Protein, Total 5.9 g/dL Albumin 4.4 g/dL Globulin 1.5 g/dL Bilirubin, Total 0.4 mg/dL ALT (SGPT) 9 U/L AST (SGOT) 15 U/L Alkaline Phosphatase 88 IU/L WBC 34.0 10 3/uL RBC 4.04 10 6/uL HGB 12.0 g/dL HCT 37.9 % MCV 93.8 fl MCH 29.7 pg MCHC 31.7 g/dL RDW 13.9 % Platelet Count 225 10 3/cmm MPV 10.6 fL Neutrophils 4.05 10 3/uL Lymphocytes 28.0 10 3/uL Monocytes 1.6 10 3/uL Eosinophils 0.3 10 3/uL Basophils 0.1 10 3/uL Neutrophil % 12.0 % Lymphocyte % 82.4 % Monocyte % 4.6 % Eosinophil % 0.7 % Basophils % 0.2 % NRBC % 0 % CBC Slide Review Slide Review Perform SLIDE REVIEWED AGREES WITH THE AUTO RESULT. Problem List: 1. 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 2. Hyperlipidemia. 3. Rosacea. 4. She was diagnosed with mitral valve prolapse at age 24. 5. She had previous lumbar laminectomy for ruptured L4/L5 disc. 6. She suffered bilateral ankle fractures in 2017. Problems Addressed with this Encounter and Plan: Patient with mild lymphocytosis. 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 There were additional abnormalities noted on her cytogenetic study, but these were of uncertain clinical significance. Overall, the findings were felt to be consistent with intermediate prognostic features. By clinical evaluation, she appeared to have early stage disease ( Alvarado stage 0), and observation/expectant management was recommended. During initial follow-up her lymphocyte count had increased gradually and she developed mild cervical lymphadenopathy, consistent with stage I disease. Her blood counts, though, have since then stabilized. Overall, she has been doing well clinically, and thus far there appears to be no further progression of the chronic lymphocytic leukemia. She continues expectant management. I will see her again in 6 months. Signed By: Randall Oakley M.D. <<Signature on File>>
== END 2021-08-03 07:12 | disposition home or self-care (01) ==
LOC: ONCMED 07:12
PROVIDERS: PCP Family Medicine; Visit Provider Internal Medicine Medical Oncology
DX: Z08 Encounter for follow-up examination after completed treatment for malignant neoplasm (principal); Z85.6 Personal history of leukemia; E78.5 Hyperlipidemia, unspecified; L71.8 Other rosacea; I34.1 Nonrheumatic mitral (valve) prolapse; Z86.69 Personal history of other diseases of the nervous system and sense organs; Z87.81 Personal history of (healed) traumatic fracture
CPT/HCPCS: G0463

== ENCOUNTER 2021-08-11 11:07 | Emergency (ER) | payer MEDICARE, SELFPAY ==
--- NOTE | 2021-08-11 11:21 | XRR_ITS ---
PROCEDURE INFORMATION: Exam: XR Chest Exam date and time: 08/11/2021 11:21 AM Age: 66 years old Clinical indication: Cough and shortness of breath; Patient HX: Covid positive, SOB, cough, fatigue for four days TECHNIQUE: Imaging protocol: XR of the chest. Views: 1 view. COMPARISON: No relevant prior studies available. FINDINGS: Lungs: Linear parenchymal densities seen in the right lower lobe possible atelectasis. There is patchy interstitial densities are present in the lateral aspect of the left lower lobe. The lungs are otherwise clear. Pleural spaces: Unremarkable. No pleural effusion. No pneumothorax. Heart/Mediastinum: Unremarkable. No cardiomegaly. Bones/joints: Unremarkable. XR/XR chest 1V portable [id number] IMPRESSION: 1. Linear parenchymal density right lower lobe possible atelectasis. 2. Nonspecific interstitial densities lateral left lower lobe
[2021-08-11 11:33] VITALS: BP 104/57; PULSE 78; RESP 20; TEMP 36.9; O2SAT 90; BMI 25.7
--- NOTE | 2021-08-11 13:06 | ED_ITS ---
HPI - COVID General: Chief Complaint: COVID symptoms Stated Complaint: covid + Time Seen by Provider: 08/11/21 12:44 Triage information: Has fever, cough or shortness of breath . Exposure to COVID + person last 14 days History of Present Illness: HPI Narrative: 58-year-old female presents emergency room complaining of shortness of breath diarrhea and weakness states she was diagnosed on 08/08/2021 with COVID. MD complaint: known COVID positive Prior covid testing: yes, results known COVID 19 common symptoms: positive fever(s), chills, cough, non-productive cough, dyspnea, fatigue, body aches, headache(s), throat pain, nasal congestion, nausea and diarrhea COVID 19 other sytmptoms: positive chest pressure and requiring oxygen; negative chest pain Onset (ago): day(s) Severity: mild Pertinent comorbid conditions: cancer (CLL) and immunocompromised state Treatment prior to arrival: none COVID Results: No Data to Display Review of Systems Const: Reports: fever(s), chills, body aches and fatigue ENMT: Reports: throat pain and nasal congestion Card: Denies: chest pain, edema, dyspnea on exertion or orthopnea Resp: Reports: dyspnea and non-productive cough GI: Reports: nausea and diarrhea : Denies: flank pain, difficulty voiding, dysuria, urinary frequency or urinary urgency Skin/Breast: Denies: rash or pruritus Neuro: Reports: headache(s) PFSH ED PFSH: Social History Smoking and tobacco status: never smoked Second hand smoke exposure: No Alcohol intake: never Desire information about alcohol rehabilitation?: No Desire information about substance/drug rehabilitation?: No Physical Exam Const: GENERAL APPEARANCE: cooperative and comfortable ORIENTATION/CONSCIOUSNESS: Yes awake, Yes oriented to person, Yes oriented to place and Yes oriented to time HENMT: COMMON NORMALS: normocephalic, atraumatic and hearing grossly normal bilaterally HEAD & SCALP: normocephalic and atraumatic Neck/C-Spine: COMMON NORMALS: no JVD Resp: AUSCULTATION: wheezes Cardio: COMMON NORMALS: no JVD, regular rate, regular rhythm and No murmurs present (Cardio) RATE: regular rate RHYTHM: regular rhythm GI: COMMON NORMALS: Soft to palpation and No hepatosplenomegaly present AUSCULTATION: Yes normoactive bowel sounds PALPATION: Yes Soft to palpation, No Tenderness to palpation present (GI), No Guarding due to palpation present (GI) and Yes No hepatosplenomegaly present Extremity: COMMON NORMALS: normal to inspection, capillary refill normal, no clubbing, cyanosis or edema, no calf tenderness and no pedal edema Neuro: SENSORIUM/ORIENTATION: Yes oriented to person, Yes oriented to place and Yes oriented to time Skin: COMMON NORMALS: no rashes or lesions noted GENERAL SKIN EXAM: no rashes or lesions noted Course Vital Signs: Vital signs: Vital Signs Temperature 98.4 F 08/11/21 11:33 Pulse Rate 89 08/11/21 14:49 Respiratory Rate 20 H 08/11/21 14:49 Blood Pressure 116/70 08/11/21 14:49 Pulse Oximetry 94 08/11/21 14:49 MDM - COVID MDM Narrative: Medical decision making narrative: Home O2 eval to qualifies for home oxygen. Will discharge home on 2 L/min. Due to oxygen requirement patient is not a candidate for clonal antibodies. Lab Data: Labs: Lab Results 08/11/21 08/11/21 13:25 13:25 WBC 22.1 10^3/uL H 10 ^3/uL (4.0-10.0) RBC 4.09 10^6/uL L 10 ^6/uL (4.1-5.3) Hgb 12.2 g/dL g/dL (11.5-15.3) Hct 36.3 % L % (37.0-47.0) MCV 88.8 fl fl (81-99) MCH 29.8 pg pg (28.0-34.0) MCHC 33.6 g/dL g/dL (30.0-36.0) RDW 13.8 % % (12.1-15.1) Plt Count 126 10^3/cmm L 10 ^3/cmm (130-400) MPV 10.7 fL H fL (7.4-10.4) Neut % (Auto) 21.2 % % Lymph % (Auto) 76.1 % % [place] % (Auto) 2.2 % % Eos % (Auto) 0.0 % % Baso % (Auto) 0.2 % % Neut # (Auto) 4.69 10^3/uL 10^3 /uL (1.8-7.7) Lymph # (Auto) 16.8 10^3/uL H 10 ^3/uL (0.8-4.8) [place] # (Auto) 0.5 10^3/uL 10^3/ uL (0.2-0.9) Eos # (Auto) 0.0 10^3/uL 10^3/ uL (0.0-0.8) Baso # (Auto) 0.0 10^3/uL 10^3/ uL (0.0-0.1) Nucleated RBC % (a uto) 0 % % Nucleated RBCs # 0.0 /100WBC /100W BC Sodium 135 mmol/L L mmol /L (136-145) Potassium 3.6 mmol/L mmol/L (3.5-5.1) Chloride 96 mmol/L L mmol/ L (98-107) Carbon Dioxide 19 mmol/L L mmol/ L (22-29) Anion Gap 23.6 H (5-19) BUN 14 mg/dL mg/dL (8-23) Creatinine 0.6 mg/dL mg/dL (0.5-0.9) GFR Calculation 99.4 mL/min mL/mi n (90-130) Glucose 88 mg/dL mg/dL (65-115) Calculated Osmolal ity 280 mOsm/kg L mOs m/kg (285-295) Calcium 8.2 mg/dL L mg/dL (8.5-10.5) Total Bilirubin 0.3 mg/dL mg/dL (0.15-1.2) AST 26 U/L U/L (0-32) ALT 9 U/L U/L (0-33) Alkaline Phosphata se 73 IU/L IU/L (35-105) Total Protein 6.3 g/dL L g/dL (6.6-8.7) Albumin 3.9 g/dL g/dL (3.5-5.2) Globulin 2.4 g/dL g/dL (1.3-4.6) COVID Results: No Data to Display Discharge Plan Discharge Patient Disposition: Home Clinical Impression: COVID-19 Condition: Stable Prescriptions: New dexamethasone 6 mg tablet 6 mg PO DAILY Qty: 7 RF: 0 Discharge Orders: Discharge ED (Routine); Ordered 08/11/21 Ordered By: Naldo Nichols Other Ambulatory Orders: DME: Oxygen (Order) Location: None Selected Ordered By: Naldo Nichols Referrals: Johnny Shell MD [Primary Care Provider] - Discharge Diet: Usual diet Discharge Activity: Increase activity as tolerated Patient Instructions: Opioid Safety Coding Level of Care Code 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
[2021-08-11 13:09] VITALS: O2SAT 93
[2021-08-11 13:34] LABS: Basophils % 0.2 %; Hematocrit 36.3 % (37.0-47.0); Hemoglobin 12.2 g/dL (11.5-15.3); Lymphocytes # 16.8 10^3/uL (0.8-4.8); Lymphocytes % 76.1 %; Mean Corpuscular HGB Conc 33.6 g/dL (30.0-36.0); Mean Corpuscular Hemoglobin 29.8 pg (28.0-34.0); Mean Corpuscular Volume 88.8 fl (81-99); Mean Platelet Volume 10.7 fL (7.4-10.4); Monocytes # 0.5 10^3/uL (0.2-0.9); Monocytes % 2.2 %; Neutrophils # 4.69 10^3/uL (1.8-7.7); Neutrophils % 21.2 %; Nucleated Red Blood Cells % 0 %; Platelet Count 126 10^3/cmm (130-400); Red Blood Count 4.09 10^6/uL (4.1-5.3); Red Cell Distribution Width 13.8 % (12.1-15.1); White Blood Count 22.1 10^3/uL (4.0-10.0)
[2021-08-11 13:50] VITALS: O2SAT 84; O2SAT 93
[2021-08-11 13:54] LABS: Slide Review Slide Review Perform
[2021-08-11 13:58] LABS: Alanine Aminotransferase 9 U/L (0-33); Albumin Level 3.9 g/dL (3.5-5.2); Alkaline Phosphatase 73 IU/L (35-105); Anion Gap 23.6 (5-19); Aspartate Amino Transferase 26 U/L (0-32); Blood Urea Nitrogen 14 mg/dL (8-23); Calcium 8.2 mg/dL (8.5-10.5); Carbon Dioxide 19 mmol/L (22-29); Chloride 96 mmol/L (98-107); Creatinine Clr Calc Pharmacy 63.7878; Globulin 2.4 g/dL (1.3-4.6); Glomerular Filtration Rate 99.4 mL/min (90-130); Glucose 88 mg/dL (65-115); Osmolality Calculated 280 mOsm/kg (285-295); Potassium 3.6 mmol/L (3.5-5.1); Sodium 135 mmol/L (136-145); Total Bilirubin 0.3 mg/dL (0.15-1.2); Total Protein 6.3 g/dL (6.6-8.7)
[2021-08-11 14:49] VITALS: BP 116/70; PULSE 89; RESP 20; O2SAT 94
== END 2021-08-11 14:50 | disposition home or self-care (01) ==
PROVIDERS: Emergency Medicine; Emergency Provider Family Medicine; PCP Family Medicine
DX: U07.1 COVID-19 (principal)
CPT/HCPCS: 36415; 71045; 80053; 85025; 99283

== ENCOUNTER 2021-08-15 12:58 | Inpatient (IN) | payer MEDICARE, SELFPAY ==
[2021-08-15 14:27] VITALS: BP 116/72; PULSE 70; RESP 18; O2SAT 80
--- NOTE | 2021-08-15 14:45 | XR_ITS ---
WS: [id number] Portable AP upright chest, 08/15/2021 Clinical Data: COVID, hypoxia Comparison: Portable chest, 08/11/2021 Findings: Patchy bilateral pulmonary opacities have increased in the last 4 days. The heart is at the upper limits of normal. No nodules, masses or effusions are seen. XR/XR chest 1V portable [id number] Impression: 1. Increasing patchy bilateral pulmonary opacities. 2. Cardiomegaly.
--- NOTE | 2021-08-15 14:45 | ECG_ITS ---
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 Measurements Intervals [place] Rate: 60 P: 51 TN: 139 QRS: 11 QRSD: 142 T: 8 QT: 405 QTc: 406 Interpretive Statements SINUS RHYTHM INTRAVENTRICULAR CONDUCTION DELAY [130+ ms QRS DURATION] No previous ECG available for comparison Electronically Signed On 08-15-2021 16:49:38 DOCTOR OF DENTAL SURGERY by Jovita Monterroso M.D. [id number]
[2021-08-15 16:12] VITALS: BP 138/83; PULSE 63; O2SAT 91
[2021-08-15 16:17] LABS: Basophils # 0.1 10^3/uL (0.0-0.1); Basophils % 0.2 %; Hematocrit 37.8 % (37.0-47.0); Hemoglobin 12.7 g/dL (11.5-15.3); Lymphocytes # 21.3 10^3/uL (0.8-4.8); Lymphocytes % 70.6 %; Mean Corpuscular HGB Conc 33.6 g/dL (30.0-36.0); Mean Corpuscular Hemoglobin 29.6 pg (28.0-34.0); Mean Corpuscular Volume 88.1 fl (81-99); Mean Platelet Volume 10.7 fL (7.4-10.4); Monocytes # 0.6 10^3/uL (0.2-0.9); Monocytes % 1.9 %; Neutrophils # 8.14 10^3/uL (1.8-7.7); Nucleated Red Blood Cells % 0 %; Platelet Count 288 10^3/cmm (130-400); Red Blood Count 4.29 10^6/uL (4.1-5.3); Red Cell Distribution Width 13.7 % (12.1-15.1); White Blood Count 30.1 10^3/uL (4.0-10.0)
--- NOTE | 2021-08-15 16:27 | CTR_ITS ---
PROCEDURE INFORMATION: Exam: CTA Chest With Contrast Exam date and time: 08/15/2021 4:27 PM Age: 66 years old Clinical indication: Cough and shortness of breath; Patient HX: Covid+; Additional info: Covid/hypoxia TECHNIQUE: Imaging protocol: Computed tomographic angiography of the chest with contrast. 3D rendering (Not supervised by radiologist): MIP and/or 3D reconstructed images were created by the technologist. Radiation optimization: All CT scans at this facility use at least one of these dose optimization techniques: automated exposure control; mA and/or kV adjustment per patient size (includes targeted exams where dose is matched to clinical indication); or iterative reconstruction. Contrast material: OMNI 350; Contrast volume: 77 ml; Contrast route: INTRAVENOUS (IV); COMPARISON: CR XR chest 1V portable [id number] 08/15/2021 3:09 PM RADIATION DOSE METRICS: Total DLP (mGy-cm): 542.29 FINDINGS: Pulmonary arteries: Normal. No pulmonary emboli. Aorta: Unremarkable. No aortic aneurysm. No aortic dissection. Lungs: Peripheral ground-glass and consolidative opacities centered within the mid and lower lungs. Pleural spaces: Unremarkable. No pneumothorax. No pleural effusion. Heart: Coronary artery calcifications noted. No cardiomegaly. No pericardial effusion. Lymph nodes: Unremarkable. No enlarged lymph nodes. Bones/joints: Unremarkable. No acute fracture. Soft tissues: Unremarkable. CT/CT angio chest PE protcl [id number] IMPRESSION: 1. Negative for pulmonary embolism. 2. Peripheral ground-glass and consolidative opacities centered within the mid and lower lungs consistent with COVID pneumonia.
[2021-08-15 16:36] LABS: ABG PH Result 7.52 (7.35-7.45); Arterial Blood Gas Hematocrit 38.4 % (37-47); Blood Gas Sample Type Arterial; HCO3 ABG 26.4 mmol/L (22-26); PO2 ABG 55.4 mmHg (80.0-100.0)
[2021-08-15 16:37] LABS: Blood Gas Operator Identificat ED; Blood Gas Sample Site Brachial, right; Oxygen Device NC
[2021-08-15 16:41] LABS: Lactic Sepsis W/Reflex 1.9 mmol/L (0.5-2.2)
[2021-08-15 16:45] LABS: Slide Review Slide Review Perform
[2021-08-15 16:51] LABS: NT Pro B Type Natriuretic Pept 948 pg/mL (0-125); Procalcitonin 0.06 ng/mL (0-0.5)
[2021-08-15 16:55] VITALS: BP 131/70; PULSE 62; O2SAT 93
[2021-08-15 17:02] LABS: Alanine Aminotransferase 21 U/L (0-33); Albumin Level 3.8 g/dL (3.5-5.2); Alkaline Phosphatase 71 IU/L (35-105); Anion Gap 16.2 (5-19); Aspartate Amino Transferase 24 U/L (0-32); Blood Urea Nitrogen 19 mg/dL (8-23); C Reactive Protein 23.4 mg/L (0.0-4.9); Calcium 8.7 mg/dL (8.5-10.5); Carbon Dioxide 25 mmol/L (22-29); Chloride 101 mmol/L (98-107); Ferritin 830 ng/mL (15-150); Globulin 2.5 g/dL (1.3-4.6); Glomerular Filtration Rate 122.7 mL/min (90-130); Glucose 215 mg/dL (65-115); Osmolality Calculated 295 mOsm/kg (285-295); Potassium 4.2 mmol/L (3.5-5.1); Sodium 138 mmol/L (136-145); Total Bilirubin 0.4 mg/dL (0.15-1.2); Total Protein 6.3 g/dL (6.6-8.7)
--- NOTE | 2021-08-15 17:20 | W.ED.COVID ---
HPI - COVID General: Chief Complaint: COVID symptoms Stated Complaint: COVID + 87-89 O2, WORSENING Time Seen by Provider: 08/15/21 15:47 Triage information: No fever, cough or shortness of breath. No known COVID + exposure last 14 days History of Present Illness: HPI Narrative: 58-year-old female presents emergency room with hypoxia. Patient reports having tested positive on August 01 for Covid and being discharged home on oxygen. She states she has been on 4 L, nurses notes that she was discharged home on 2 L. She became more hypoxic turned her oxygen up when she arrived here she was in the 80s but her tank was out of oxygen. She has a history of CLL. Patient was seen on 1222. At that time she reported a positive Covid test with Dr. Scruggs's office. She was tested for home O2 and did require it. She continues to progressively worsen since and since then has had increasing oxygen requirements. She denies any chest pain. States her last 24 hours she is especially worsened. MD complaint: known COVID positive Prior testing date: 08/08/21 COVID 19 common symptoms: positive fever(s), chills, cough, non-productive cough, dyspnea, fatigue, body aches, headache(s), throat pain, nasal congestion, nausea and diarrhea COVID 19 other sytmptoms: positive requiring more oxygen; negative chest pain Severity: moderate Pertinent comorbid conditions: diabetes, hypertension and on home oxygen (Started for this illness on 1222) Treatment prior to arrival: acetaminophen, steroids and oxygen COVID Results: No Data to Display Review of Systems Const: Reports: fever(s), chills, body aches and fatigue ENMT: Reports: throat pain and nasal congestion Card: Reports: dyspnea on exertion; Denies: chest pain, edema or orthopnea Resp: Reports: dyspnea and non-productive cough GI: Reports: nausea and diarrhea : Denies: flank pain, difficulty voiding, dysuria, urinary frequency or urinary urgency Skin/Breast: Denies: rash or pruritus Neuro: Reports: headache(s) PFSH ED PFSH: Medical History (Updated 08/16/21 @ 06:47 by Naldo Nichols DO) CLL (chronic lymphocytic leukemia) Social History Smoking and tobacco status: never smoked Second hand smoke exposure: No Alcohol intake: never Desire information about alcohol rehabilitation?: No Desire information about substance/drug rehabilitation?: No Physical Exam Const: COMMON NORMALS: no acute distress GENERAL APPEARANCE: cooperative and comfortable ORIENTATION/CONSCIOUSNESS: Yes awake, Yes oriented to person, Yes oriented to place and Yes oriented to time HENMT: COMMON NORMALS: normocephalic, atraumatic and hearing grossly normal bilaterally HEAD & SCALP: normocephalic and atraumatic Neck/C-Spine: COMMON NORMALS: no JVD Resp: EFFORT & INSPECTION: Yes respiratory distress, Yes labored, Yes Actively coughing and Yes audible wheezes AUSCULTATION: crackles and wheezes Cardio: COMMON NORMALS: no JVD, regular rate, regular rhythm and No murmurs present (Cardio) RATE: regular rate RHYTHM: regular rhythm GI: COMMON NORMALS: Soft to palpation and No hepatosplenomegaly present AUSCULTATION: Yes normoactive bowel sounds PALPATION: Yes Soft to palpation, No Tenderness to palpation present (GI), No Guarding due to palpation present (GI) and Yes No hepatosplenomegaly present Extremity: COMMON NORMALS: normal to inspection, capillary refill normal, no clubbing, cyanosis or edema, no calf tenderness and no pedal edema Neuro: SENSORIUM/ORIENTATION: Yes oriented to person, Yes oriented to place and Yes oriented to time Skin: COMMON NORMALS: no rashes or lesions noted GENERAL SKIN EXAM: no rashes or lesions noted Course Vital Signs: Vital signs: Vital Signs Temperature 97.7 F 08/16/21 04:00 Pulse Rate 66 08/16/21 04:00 Respiratory Rate 20 H 08/16/21 04:00 Blood Pressure 108/66 08/16/21 04:00 Pulse Oximetry 86 L 08/16/21 04:00 MDM - COVID MDM Narrative: Medical decision making narrative: Significant worsening of her COVID. She is approximately day 9 from onset of symptoms. While to get verification from Dr. Scruggs's office the time she presents here in the office is closed were not able to get a copy of her positive test. We switched her first to nonrebreather mask vent to heated high flow. She still was somewhat hypoxic on this night significant increased work of breathing she was changed to BiPAP. Discussed with the patient she will need to be admitted she does want to be a full code she is given dexamethasone and remdesivir discussed with hospitalist orders written Lab Data: Labs: Lab Results 08/15/21 08/15/21 08/15/21 16:08 16:08 16:08 WBC 30.1 10^3/uL H 10 ^3/uL (4.0-10.0) RBC 4.29 10^6/uL 10^6 /uL (4.1-5.3) Hgb 12.7 g/dL g/dL (11.5-15.3) Hct 37.8 % % (37.0-47.0) MCV 88.1 fl fl (81-99) MCH 29.6 pg pg (28.0-34.0) MCHC 33.6 g/dL g/dL (30.0-36.0) RDW 13.7 % % (12.1-15.1) Plt Count 288 10^3/cmm 10^3 /cmm (130-400) MPV 10.7 fL H fL (7.4-10.4) Neut % (Auto) 27.0 % % Lymph % (Auto) 70.6 % % [place] % (Auto) 1.9 % % Eos % (Auto) 0.0 % % Baso % (Auto) 0.2 % % Neut # (Auto) 8.14 10^3/uL H 10 ^3/uL (1.8-7.7) Lymph # (Auto) 21.3 10^3/uL H 10 ^3/uL (0.8-4.8) [place] # (Auto) 0.6 10^3/uL 10^3/ uL (0.2-0.9) Eos # (Auto) 0.0 10^3/uL 10^3/ uL (0.0-0.8) Baso # (Auto) 0.1 10^3/uL 10^3/ uL (0.0-0.1) Nucleated RBC % (a uto) 0 % % Nucleated RBCs # 0.0 /100WBC /100W BC PT INR APTT Fibrinogen D-Dimer Specimen Type Sample Site ABG pH ABG pCO2 ABG pO2 ABG HCO3 ABG Base Excess Meng Test Hematocrit O2 Delivery Device O2 Liters/Min FiO2 Vocational Ed Instructor ID Sodium 138 mmol/L mmol/L (136-145) Potassium 4.2 mmol/L mmol/L (3.5-5.1) Chloride 101 mmol/L mmol/L (98-107) Carbon Dioxide 25 mmol/L mmol/L (22-29) Anion Gap 16.2 (5-19) BUN 19 mg/dL mg/dL (8-23) Creatinine 0.5 mg/dL mg/dL (0.5-0.9) GFR Calculation 122.7 mL/min mL/m in (90-130) Glucose 215 mg/dL H mg/dL (65-115) Calculated Osmolal ity 295 mOsm/kg mOsm/ kg (285-295) Lactic Acid 1.9 mmol/L mmol/L (0.5-2.2) Calcium 8.7 mg/dL mg/dL (8.5-10.5) Ferritin 830 ng/mL H ng/mL (15-150) Total Bilirubin 0.4 mg/dL mg/dL (0.15-1.2) AST 24 U/L U/L (0-32) ALT 21 U/L U/L (0-33) Alkaline Phosphata se 71 IU/L IU/L (35-105) C-Reactive Protein 23.4 mg/L H mg/L (0.0-4.9) NT-Pro-B Natriuret Pep 948 pg/mL H pg/mL (0-125) Total Protein 6.3 g/dL L g/dL (6.6-8.7) Albumin 3.8 g/dL g/dL (3.5-5.2) Globulin 2.5 g/dL g/dL (1.3-4.6) Procalcitonin 0.06 ng/mL ng/mL (0-0.5) 08/15/21 08/15/21 08/15/21 16:08 16:26 16:44 WBC RBC Hgb Hct MCV MCH MCHC RDW Plt Count MPV Neut % (Auto) Lymph % (Auto) [place] % (Auto) Eos % (Auto) Baso % (Auto) Neut # (Auto) Lymph # (Auto) [place] # (Auto) Eos # (Auto) Baso # (Auto) Nucleated RBC % (a uto) Nucleated RBCs # PT 15.20 SECONDS H S ECONDS (12.1-14.9) INR 1.17 (0.8-1.2) APTT 24.5 SECONDS SECO NDS (23.9-36.7) Fibrinogen 501 mg/dL H mg/dL (174-498) D-Dimer 3.21 ug/mIFEU H u g/mIFEU (0-0.59) Specimen Type Arterial Sample Site Brachial, right ABG pH 7.52 H (7.35-7.45) ABG pCO2 32.0 mmHg L mmHg (35-45) ABG pO2 55.4 mmHg L mmHg (80.0-100.0) ABG HCO3 26.4 mmol/L H mmo l/L (22-26) ABG Base Excess 4.0 mmol/L H mmol /L (-2.0-2.0) Meng Test N/a Hematocrit 38.4 % % (37-47) O2 Delivery Device Nc O2 Liters/Min 5.0 % % FiO2 40.0 % % Vocational Ed Instructor ID Ed Sodium Potassium Chloride Carbon Dioxide Anion Gap BUN Creatinine GFR Calculation Glucose Calculated Osmolal ity Lactic Acid Calcium Ferritin Total Bilirubin AST ALT Alkaline Phosphata se C-Reactive Protein NT-Pro-B Natriuret Pep Total Protein Albumin Globulin Procalcitonin 0.05 ng/mL ng/mL (0-0.5) COVID Results: No Data to Display Critical Care Time Critical Care Time: Critical Care Time: Yes Total Critical Care Time: 40 Attestation: The high probability of a clinically significant, sudden or life threatening deterioration of the patient's respiratory system(s) required my full and direct attention, intervention and personal management. The critical care time is as shown. 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
[2021-08-15] MEDS: iohexol 350 mg/mL 100 mL Btl IV (17:36)
[2021-08-15 17:39] LABS: INR 1.17 (0.8-1.2)
[2021-08-15 17:41] LABS: Fibrinogen 501 mg/dL (174-498)
[2021-08-15 17:43] LABS: D Dimer 3.21 ug/mIFEU (0-0.59)
[2021-08-15 17:44] LABS: Partial Thromboplastin Time 24.5 SECONDS (23.9-36.7)
--- NOTE | 2021-08-15 18:38 | PM.HP ---
Providers/Chief Complaint Primary Care Provider: Johnny Shell MD Chief Complaint: COVID + 87-89 O2, WORSENING History of Present Illness Sera Ragsdale is a 66 year old female with past medical history of CLL, not on treatment, Covid vaccinated, who received booster about 3 weeks ago now presenting with worsening shortness of breath and worsening hypoxia. She was diagnosed with Covid about 2 weeks ago and was discharged home from ER on home oxygen and oral steroids. However her symptoms worsened several days ago. She reports that her oxygen was dropping as low as mid 60s at home today. She reports associated shortness of breath, cough. No fever or chills. No nausea or vomiting. No diarrhea. No chest pain or palpitations. No dizziness or lightheadedness. She denies similar problems before. Review of Systems General: Reports: 10 or more systems reviewed and unremarkable except in HPI and below Medications/Allergies Home Medications Medication Instructions Recorded Confirmed Last Taken Type dexamethasone 6 mg PO DAILY #7 tab 08/11/21 Unknown Rx Allergies Allergy/AdvReac Type Severity Reaction Status Date / Time adhesive tape Allergy ALGY-Rash Verified 02/22/21 11:10 PFSH Acute PFSH: Medical History (Updated 08/15/21 @ 18:43 by Parag Arizmendi) CLL (chronic lymphocytic leukemia) Social History Smoking and tobacco status: never smoked Second hand smoke exposure: No Alcohol intake: never Desire information about alcohol rehabilitation?: No Desire information about substance/drug rehabilitation?: No Vitals/I&O/Wt Last Vital Signs Pulse 62 08/15/21 16:55 Resp 18 08/15/21 14:27 BP 131/70 08/15/21 16:55 Pulse Ox 93 08/15/21 16:55 Physical Exam Narrative: EXAM NARRATIVE: The patient is currently awake alert oriented. Responses are adequate. Mood and affect are appropriate. Skin is warm and dry. Moist mucous membranes Neck is supple. No JVD Eyes PERRL, extraocular muscles are intact Lungs decreased breath sounds bibasilarly. No wheezes. No respiratory distress with 5 L of oxygen via nasal cannula. Oxygen saturation is in the mid 90s currently. Heart S1, S2, regular Abdomen soft, nontender, bowel sounds are present Extremities: Bilateral pedal edema. No cyanosis or calf tenderness bilaterally Neuro examination is nonfocal. Data : 08/15/21 16:08 08/15/21 16:08 Other Labs: Laboratory Results WBC 30.1 10^3/uL (4.0-10.0) H 08/15/21 16:08 RBC 4.29 10^6/uL (4.1-5.3) 08/15/21 16:08 Hgb 12.7 g/dL (11.5-15.3) 08/15/21 16:08 Hct 37.8 % (37.0-47.0) 08/15/21 16:08 MCV 88.1 fl (81-99) 08/15/21 16:08 MCH 29.6 pg (28.0-34.0) 08/15/21 16:08 MCHC 33.6 g/dL (30.0-36.0) 08/15/21 16:08 RDW 13.7 % (12.1-15.1) 08/15/21 16:08 Plt Count 288 10^3/cmm (130-400) 08/15/21 16:08 MPV 10.7 fL (7.4-10.4) H 08/15/21 16:08 Neut % (Auto) 27.0 % 08/15/21 16:08 Lymph % (Auto) 70.6 % 08/15/21 16:08 [place] % (Auto) 1.9 % 08/15/21 16:08 Eos % (Auto) 0.0 % 08/15/21 16:08 Baso % (Auto) 0.2 % 08/15/21 16:08 Neut # (Auto) 8.14 10^3/uL (1.8-7.7) H 08/15/21 16:08 Lymph # (Auto) 21.3 10^3/uL (0.8-4.8) H 08/15/21 16:08 [place] # (Auto) 0.6 10^3/uL (0.2-0.9) 08/15/21 16:08 Eos # (Auto) 0.0 10^3/uL (0.0-0.8) 08/15/21 16:08 Baso # (Auto) 0.1 10^3/uL (0.0-0.1) 08/15/21 16:08 Nucleated RBC % (auto) 0 % 08/15/21 16:08 Nucleated RBCs # 0.0 /100WBC 08/15/21 16:08 PT 15.20 SECONDS (12.1-14.9) H 08/15/21 16:44 INR 1.17 (0.8-1.2) 08/15/21 16:44 APTT 24.5 SECONDS (23.9-36.7) 08/15/21 16:44 Fibrinogen 501 mg/dL (174-498) H 08/15/21 16:44 D-Dimer 3.21 ug/mIFEU (0-0.59) H 08/15/21 16:44 Specimen Type Arterial 08/15/21 16:26 Sample Site Brachial, right 08/15/21 16:26 ABG pH 7.52 (7.35-7.45) H 08/15/21 16:26 ABG pCO2 32.0 mmHg (35-45) L 08/15/21 16:26 ABG pO2 55.4 mmHg (80.0-100.0) L 08/15/21 16:26 ABG HCO3 26.4 mmol/L (22-26) H 08/15/21 16:26 ABG Base Excess 4.0 mmol/L (-2.0-2.0) H 08/15/21 16:26 Meng Test N/a 08/15/21 16:26 Hematocrit 38.4 % (37-47) 08/15/21 16:26 O2 Delivery Device Nc 08/15/21 16:26 O2 Liters/Min 5.0 % 08/15/21 16:26 FiO2 40.0 % 08/15/21 16:26 Face Cleaner ID Ed 08/15/21 16:26 Sodium 138 mmol/L (136-145) 08/15/21 16:08 Potassium 4.2 mmol/L (3.5-5.1) 08/15/21 16:08 Chloride 101 mmol/L (98-107) 08/15/21 16:08 Carbon Dioxide 25 mmol/L (22-29) 08/15/21 16:08 Anion Gap 16.2 (5-19) 08/15/21 16:08 BUN 19 mg/dL (8-23) 08/15/21 16:08 Creatinine 0.5 mg/dL (0.5-0.9) 08/15/21 16:08 GFR Calculation 122.7 mL/min (90-130) 08/15/21 16:08 Glucose 215 mg/dL (65-115) H 08/15/21 16:08 Calculated Osmolality 295 mOsm/kg (285-295) 08/15/21 16:08 Lactic Acid 1.9 mmol/L (0.5-2.2) 08/15/21 16:08 Calcium 8.7 mg/dL (8.5-10.5) 08/15/21 16:08 Ferritin 830 ng/mL (15-150) H 08/15/21 16:08 Total Bilirubin 0.4 mg/dL (0.15-1.2) 08/15/21 16:08 AST 24 U/L (0-32) 08/15/21 16:08 ALT 21 U/L (0-33) 08/15/21 16:08 Alkaline Phosphatase 71 IU/L (35-105) 08/15/21 16:08 C-Reactive Protein 23.4 mg/L (0.0-4.9) H 08/15/21 16:08 NT-Pro-B Natriuret Pep 948 pg/mL (0-125) H 08/15/21 16:08 Total Protein 6.3 g/dL (6.6-8.7) L 08/15/21 16:08 Albumin 3.8 g/dL (3.5-5.2) 08/15/21 16:08 Globulin 2.5 g/dL (1.3-4.6) 08/15/21 16:08 Procalcitonin 0.06 ng/mL (0-0.5) 08/15/21 16:08 Impressions Chest X-Ray 08/15/21 14:45 Impression: 1. Increasing patchy bilateral pulmonary opacities. 2. Cardiomegaly. Chest CTA 08/15/21 16:27 IMPRESSION: 1. Negative for pulmonary embolism. 2. Peripheral ground-glass and consolidative opacities centered within the mid and lower lungs consistent with COVID pneumonia. A&P Assessment and plan (1) Acute and chronic respiratory failure with hypoxia: Status: Acute (2) Pneumonia due to COVID-19 virus: Status: Acute (3) Immunosuppressed status: Status: Acute (4) Hyperglycemia: Status: Acute Additional A&P Information Acute hypoxic respiratory failure secondary to COVID-19 pneumonia. Failed outpatient management with steroids and supplemental oxygen. We will admit the patient [facility]. We will start her on Solu-Medrol 60 mg every 8 hours, vitamins. Out of window for remdesivir. Will consider Tocilizumab if her CRP goes higher than 75. Has associated elevated BNP and peripheral edema. We will go ahead and order 1 dose of Lasix. Will consider additional testing. Most likely will require outpatient cardiac evaluation after stabilization and discharge. Leukocytosis secondary to CLL. Will monitor. Hyperglycemia. This is probably due to the steroids. Will use insulin sliding scale. Will require additional outpatient work-up to rule out underlying diabetes. DVT prophylaxis. We will start her on full dose of Lovenox since she has Covid and very high risk of thromboembolic complications. CODE STATUS. The patient wants to be full code. The plan of care was discussed with the patient. She verbalized understanding and agreement. Attestations Medical Necessity Statement*: Considering patient's presenting symptoms, vital signs, diagnosis and treatment plan I expect that the patient will spend more than 2 midnights in the hospital. 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
[2021-08-15] MEDS: remdesivir 200 MG in sodium chloride 0.9% (100 ml) 60 ML 100 MG IV (18:53)
[2021-08-15] MEDS: FUROsemide 10 mg/mL SDV 4mL 40 MG IVP (18:56)
[2021-08-15] MEDS: dexamethasone 10 mg/mL INJ IVP (18:56)
[2021-08-15 19:14] LABS: Procalcitonin 0.05 ng/mL (0-0.5)
[2021-08-15 20:58] VITALS: BP 120/65; PULSE 61; RESP 21; O2SAT 92
[2021-08-15 23:07] VITALS: BP 108/58; PULSE 52; RESP 27; O2SAT 89
[2021-08-16] VITALS (13 sets, daily range): BP systolic 101–134; BP diastolic 63–78; PULSE 56–89; RESP 15–24; TEMP 36.5–37.1; O2SAT 86–93; BMI 25.0
--- NOTE | 2021-08-16 00:17 | PC.NURSE ---
i reported low pulse 56 to nurse
--- NOTE | 2021-08-16 05:19 | PC.NURSE ---
i reported high reps 20 to nurse
[2021-08-16 06:55] LABS: Glucose Point of Care 257 mg/dL (70-110)
[2021-08-16 07:12] LABS: Basophils % 0.1 %; Hematocrit 37.3 % (37.0-47.0); Hemoglobin 12.2 g/dL (11.5-15.3); Lymphocytes % 81.8 %; Mean Corpuscular HGB Conc 32.7 g/dL (30.0-36.0); Mean Corpuscular Hemoglobin 29.8 pg (28.0-34.0); Mean Platelet Volume 10.9 fL (7.4-10.4); Monocytes # 0.3 10^3/uL (0.2-0.9); Neutrophils # 4.76 10^3/uL (1.8-7.7); Neutrophils % 16.9 %; Nucleated Red Blood Cells % 0 %; Platelet Count 304 10^3/cmm (130-400); Red Cell Distribution Width 13.7 % (12.1-15.1); White Blood Count 28.2 10^3/uL (4.0-10.0)
[2021-08-16 07:37] LABS: Alanine Aminotransferase 17 U/L (0-33); Albumin Level 3.6 g/dL (3.5-5.2); Alkaline Phosphatase 65 IU/L (35-105); Anion Gap 17.9 (5-19); Aspartate Amino Transferase 16 U/L (0-32); Blood Urea Nitrogen 22 mg/dL (8-23); C Reactive Protein 25.2 mg/L (0.0-4.9); Calcium 8.6 mg/dL (8.5-10.5); Carbon Dioxide 25 mmol/L (22-29); Chloride 101 mmol/L (98-107); Globulin 2.5 g/dL (1.3-4.6); Glomerular Filtration Rate 122.7 mL/min (90-130); Glucose 246 mg/dL (65-115); Magnesium 2.2 mg/dL (1.7-2.3); Osmolality Calculated 302 mOsm/kg (285-295); Potassium 3.9 mmol/L (3.5-5.1); Sodium 140 mmol/L (136-145); Total Bilirubin 0.3 mg/dL (0.15-1.2); Total Protein 6.1 g/dL (6.6-8.7)
[2021-08-16 07:44] LABS: NT Pro B Type Natriuretic Pept 938 pg/mL (0-125)
[2021-08-16 08:07] LABS: Slide Review Slide Review Perform
[2021-08-16] MEDS: cholecalciferol (vitamin D3) 1,000 unit Tablet 2000 UNIT PO (08:40)
[2021-08-16] MEDS: zinc gluconate 50 mg Tablet PO (08:40)
[2021-08-16] MEDS: ascorbic acid 500 mg Tablet 1000 MG PO ×2 (08:40→18:08)
[2021-08-16] MEDS: insulin lispro 100 unit/1 mL SUBCUT ×4 (08:41→22:02)
[2021-08-16] MEDS: ipratropium-albuterol 3 mL Neb INHALATION (09:14)
--- NOTE | 2021-08-16 11:55 | USCV_ITS ---
Sera Ragsdale Age: 66 Gender: F : 1955 Exam Date: 08/16/2021 13:19 Ordering Phys: Parag Arizmendi MD Technologist: FABIÁN Exam Location: [facility] [place] Indication: PE; hx RLE DVT 1974 HISTORY: PE; hx RLE DVT 1974 PROCEDURES: The venous duplex Doppler examination of both lower extremities was performed in the standard fashion. The following venous structures were evaluated: common femoral vein, profunda vein, proximal portion of the greater saphenous vein, superficial femoral vein, and the popliteal vein. In addition, the posterior tibial and peroneal veins were evaluated. Bilaterally, the common femoral, superficial femoral, profunda femoral, popliteal, posterior tibial, greater saphenous veins, and the peroneal trunk were identified and interrogated in the standard fashion. These veins were found to be easily compressible with spontaneous blood flow. Serial compression, augmentation maneuvers, and spectral Doppler flow evaluation were performed. CONCLUSIONS No evidence of right lower extremity DVT. No evidence of left lower extremity DVT. Rosendo Turner MD (Electronically Signed) Final Date: 16 August 2021 15:19 S
[2021-08-16 11:57] LABS: Glucose Point of Care 307 mg/dL (70-110)
--- NOTE | 2021-08-16 13:45 | P.PN_ITS ---
Subjective Subjective: Interval history: Patient is currently on high flow oxygen. Reports feeling better today. Denies uncontrolled shortness of breath. No chest pain. No dizziness or lightheadedness, no nausea or vomiting, no diarrhea, no fever or chills. Medications: Reviewed: Yes Medication Review Details: Generic Name Dose Route Start Last Admin Trade Name Nicky PRN Reason Stop Dose Admin Albuterol/Ipratrop ium 3 ml 08/15/21 18:12 08/16/21 09:14 Ipratropium-Albu terol 3 Ml Neb INHALATION 3 ml Q4H.RESPIRATORY P RN Administration SHORTNESS OF SHAILESH TH Ascorbic Acid 1,000 mg 08/16/21 09:00 08/16/21 08:40 Ascorbic Acid 50 0 Mg Tablet PO 1,000 mg BID CAR Administration Insulin Human Lisp ro 0 unit 08/15/21 21:00 08/16/21 08:41 Insulin Lispro 1 00 Unit/1 Ml SUBCUT 6 unit WM&BEDTIME CAR Administration Protocol Methylprednisolone Sodium Succinate 60 mg 08/15/21 20:00 08/16/21 13:34 Methylprednisolo ne Sod Succ 125 Mg /2 Ml Inj IVP 60 mg Q8H CAR Administration Vitamin D 2,000 unit 08/16/21 09:00 08/16/21 08:40 Cholecalciferol (Vitamin D3) 1,000 Unit Tablet PO 2,000 unit DAILY CAR Administration Zinc Gluconate 50 mg 08/16/21 09:00 08/16/21 08:40 Zinc Gluconate 5 0 Mg Tablet PO 50 mg DAILY CAR Administration Vitals/I&O/Wt Last Vital Signs Temp 98.1 F 08/16/21 11:51 Pulse 73 08/16/21 11:58 Resp 18 08/16/21 11:58 BP 124/78 08/16/21 11:51 Pulse Ox 91 08/16/21 11:58 08/15/21 08/16/21 08/16/21 22:59 06:59 14:59 Intake Total 580 / 580 Output Total 320 / 320 200 / 200 Balance 260 / 260 -200 / -200 Weight last 48 hrs Weight 66.224 kg Physical Exam Narrative: EXAM NARRATIVE: Awake alert oriented x3. No acute distress. Responses are adequate. Mood and affect are appropriate. Skin is warm and dry. Moist mucous membranes Neck is supple. No JVD Eyes PERRL, extraocular muscles are intact Lungs decreased breath sounds bibasilarly. No wheezes. Mild bilateral crackles are present. No respiratory distress. Heart S1, S2, regular Abdomen soft, nontender, bowel sounds are present Extremities: Bilateral pedal edema. No cyanosis or calf tenderness bilaterally Neuro examination is nonfocal. Data : 08/16/21 06:10 08/16/21 06:10 A&P Assessment and plan (1) Acute and chronic respiratory failure with hypoxia: Status: Acute (2) Pneumonia due to COVID-19 virus: Status: Acute (3) Immunosuppressed status: Status: Acute (4) Hyperglycemia: Status: Acute Additional A&P Information Acute hypoxic respiratory failure secondary to COVID-19 pneumonia and PE. Failed outpatient management with steroids and supplemental oxygen. COVID-19 pneumonia. Continuing steroids, vitamins. Continuing high flow oxygen . Frequent repositioning, proning, and incentive spirometry is discussed. She agreed. PE. I received a call from virtual radiology today. Radiologist kindly informed me that review of the patient's CT revealed a PE. The patient will be on Lovenox. I will also order echo and Doppler ultrasound of the lower extremities. Leukocytosis secondary to CLL. Will monitor. Hyperglycemia. This is probably due to the steroids. Will use insulin sliding scale. Will require additional outpatient work-up to rule out underlying diabetes. CODE STATUS. Full code. The plan of care was discussed with the patient. She verbalized understanding and agreement. Attestations Medical Necessity Statement*: Patient is still on high flow oxygen. Requires aggressive management in hospital settings. 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
[2021-08-16] MEDS: enoxaparin 60 mg/0.6 mL Syringe SUBCUT (14:08)
[2021-08-16 16:57] LABS: Glucose Point of Care 307 mg/dL (70-110)
[2021-08-16 19:49] LABS: Glucose Point of Care 239 mg/dL (70-110)
[2021-08-17] VITALS (11 sets, daily range): BP systolic 106–134; BP diastolic 66–98; PULSE 47–76; RESP 16–21; TEMP 36.4–37.2; O2SAT 90–97
[2021-08-17] MEDS: enoxaparin 60 mg/0.6 mL Syringe SUBCUT ×2 (01:53→12:20)
--- NOTE | 2021-08-17 05:12 | PC.NURSE ---
i reported low pulse 47 and high reps 20 to nurse
--- NOTE | 2021-08-17 06:00 | XRR_ITS ---
PROCEDURE INFORMATION: Exam: XR Chest Exam date and time: 08/17/2021 6:00 AM Age: 66 years old Clinical indication: Other: Follow up covid TECHNIQUE: Imaging protocol: XR of the chest. Views: 1 view. COMPARISON: CR XR chest 1V portable [id number] 08/15/2021 3:09 PM FINDINGS: Lungs: Peripheral opacities again noted throughout both lungs. This is not significantly changed from prior study. Pleural spaces: Unremarkable. No pleural effusion. No pneumothorax. Heart/Mediastinum: Unremarkable. No cardiomegaly. Diaphragm: Mild elevation of the right hemidiaphragm. Bones/joints: Visualized osseous structures are intact. XR/XR chest 1V portable [id number] IMPRESSION: Peripheral opacities again noted throughout both lungs, not significantly changed from prior study.
[2021-08-17 06:42] LABS: Glucose Point of Care 205 mg/dL (70-110)
--- NOTE | 2021-08-17 07:00 | USCV_ITS ---
Sera Ragsdale Age: 66 Gender: F : 1955 Exam Date: 08/17/2021 10:30 Ordering Phys: Parag Arizmendi MD Technologist: CONCETTA Exam Location: [facility] [place] Indication: PE, ELEVATED BNP BP: 106 / 88 HR: 61 Rhythm: Sinus Technical Quality: Technically difficult study MEASUREMENTS (Male / Female) Normal Values 2D ECHO LV Diastolic Diameter PLAX 3.8 cm 4.2 - 5.9 / 3.9 - 5.3 cm LV Systolic Diameter PLAX 2.7 cm IVS Diastolic Thickness 1.0 cm 0.6 - 1.0 / 0.6 - 0.9 cm IVS Systolic Thickness 1.5 cm LVPW Diastolic Thickness 1.0 cm 0.6 - 1.0 / 0.6 - 0.9 cm LVPW Systolic Thickness 0.9 cm LV Ejection Fraction 2D Teich 56.4 % LA Diameter 3.0 cm LA Width 3.5 cm LA Height 4.3 cm RA Width 3.0 cm RA Height 4.1 cm Aorta at Sinotubular Diameter 2.5 cm M-MODE Aortic Annulus Diameter 2.5 cm LA Ao Ratio MM 1.2 MV E Point Septal Separation 0.3 cm FINDINGS Left Ventricle Right Ventricle Right Atrium Left Atrium Mitral Valve Aortic Valve Tricuspid Valve Pulmonic Valve Pericardium Aorta CONCLUSIONS This is a limited echocardiogram performed to assess LV function and RV. Technically difficult study LV systolic function is normal with EF of 55-60% Grossly, RV is normal in size and function No comparison studies are available Rodo Donato MD (Electronically Signed) Final Date: 17 August 2021 12:27 S
[2021-08-17 07:11] LABS: Basophils # 0.1 10^3/uL (0.0-0.1); Basophils % 0.2 %; Hematocrit 39.9 % (37.0-47.0); Hemoglobin 12.9 g/dL (11.5-15.3); Lymphocytes # 38.4 10^3/uL (0.8-4.8); Lymphocytes % 81.4 %; Mean Corpuscular HGB Conc 32.3 g/dL (30.0-36.0); Mean Corpuscular Hemoglobin 29.4 pg (28.0-34.0); Mean Corpuscular Volume 90.9 fl (81-99); Mean Platelet Volume 10.6 fL (7.4-10.4); Monocytes # 0.6 10^3/uL (0.2-0.9); Monocytes % 1.2 %; Neutrophils # 7.94 10^3/uL (1.8-7.7); Neutrophils % 16.9 %; Nucleated Red Blood Cells % 0 %; Platelet Count 471 10^3/cmm (130-400); Red Blood Count 4.39 10^6/uL (4.1-5.3); Red Cell Distribution Width 13.6 % (12.1-15.1)
[2021-08-17 07:27] LABS: Alanine Aminotransferase 15 U/L (0-33); Albumin Level 3.7 g/dL (3.5-5.2); Alkaline Phosphatase 67 IU/L (35-105); Anion Gap 14.4 (5-19); Aspartate Amino Transferase 14 U/L (0-32); Blood Urea Nitrogen 28 mg/dL (8-23); C Reactive Protein 7.4 mg/L (0.0-4.9); Calcium 8.9 mg/dL (8.5-10.5); Carbon Dioxide 29 mmol/L (22-29); Chloride 102 mmol/L (98-107); Globulin 2.5 g/dL (1.3-4.6); Glomerular Filtration Rate 99.4 mL/min (90-130); Glucose 212 mg/dL (65-115); Magnesium 2.4 mg/dL (1.7-2.3); Osmolality Calculated 304 mOsm/kg (285-295); Potassium 4.4 mmol/L (3.5-5.1); Sodium 141 mmol/L (136-145); Total Bilirubin 0.4 mg/dL (0.15-1.2); Total Protein 6.2 g/dL (6.6-8.7)
[2021-08-17 08:52] LABS: Slide Review Slide Review Perform
[2021-08-17 08:54] LABS: White Blood Count 47.2 10^3/uL (4.0-10.0)
[2021-08-17 10:41] LABS: Procalcitonin 0.04 ng/mL (0-0.5)
[2021-08-17 10:57] LABS: Glucose Point of Care 351 mg/dL (70-110)
[2021-08-17] MEDS: cholecalciferol (vitamin D3) 1,000 unit Tablet 2000 UNIT PO (12:20)
[2021-08-17] MEDS: ascorbic acid 500 mg Tablet 1000 MG PO ×2 (12:20→19:06)
[2021-08-17] MEDS: insulin lispro 100 unit/1 mL SUBCUT ×2 (12:20→22:21)
[2021-08-17] MEDS: zinc gluconate 50 mg Tablet PO (12:20)
--- NOTE | 2021-08-17 12:44 | PM.PN ---
Subjective Subjective: Interval history: The patient reports breathing a little easier today. Still on high flow oxygen. FiO2 80%. Denies any chest pain. No fever or chills. No nausea or vomiting. Medications: Reviewed: Yes Medication Review Details: Generic Name Dose Route Start Last Admin Trade Name Nicky PRN Reason Stop Dose Admin Albuterol/Ipratrop ium 3 ml 08/15/21 18:12 08/16/21 09:14 Ipratropium-Albu terol 3 Ml Neb INHALATION 3 ml Q4H.RESPIRATORY P RN Administration SHORTNESS OF SHAILESH TH Ascorbic Acid 1,000 mg 08/16/21 09:00 08/17/21 12:20 Ascorbic Acid 50 0 Mg Tablet PO 1,000 mg BID CAR Administration Enoxaparin Sodium 60 mg 08/16/21 13:00 08/17/21 12:20 Enoxaparin 60 Mg /0.6 Ml Syringe SUBCUT 60 mg Q12H CAR Administration Insulin Human Lisp ro 0 unit 08/15/21 21:00 08/17/21 12:20 Insulin Lispro 1 00 Unit/1 Ml SUBCUT 12 unit WM&BEDTIME CAR Administration Protocol Vitamin D 2,000 unit 08/16/21 09:00 08/17/21 12:20 Cholecalciferol (Vitamin D3) 1,000 Unit Tablet PO 2,000 unit DAILY CAR Administration Zinc Gluconate 50 mg 08/16/21 09:00 08/17/21 12:20 Zinc Gluconate 5 0 Mg Tablet PO 50 mg DAILY CAR Administration Solu-Medrol changed to 60 twice daily. Vitals/I&O/Wt Last Vital Signs Temp 98.4 F 08/17/21 11:27 Pulse 69 08/17/21 11:27 Resp 19 H 08/17/21 11:27 BP 121/73 08/17/21 11:27 Pulse Ox 94 08/17/21 11:27 08/16/21 08/17/21 08/17/21 22:59 06:59 14:59 Intake Total 0 / 360 240 / 240 Output Total 0 / 200 200 / 400 Balance 0 / 160 -200 / -40 240 / 240 Weight last 48 hrs Weight 66.224 kg Physical Exam Narrative: EXAM NARRATIVE: Awake alert oriented x3. No acute distress. Responses are adequate. Mood and affect are appropriate. Skin is warm and dry. Moist mucous membranes Neck is supple. No JVD Eyes PERRL, extraocular muscles are intact Lungs decreased breath sounds bibasilarly. No wheezes. Mild bilateral crackles are present. No respiratory distress. Heart S1, S2, regular Abdomen soft, nontender, bowel sounds are present Extremities: Bilateral pedal edema. No cyanosis or calf tenderness bilaterally Neuro examination is nonfocal. Data : 08/17/21 06:47 08/17/21 06:47 A&P Assessment and plan (1) Acute and chronic respiratory failure with hypoxia: Status: Acute (2) Pneumonia due to COVID-19 virus: Status: Acute (3) Immunosuppressed status: Status: Acute (4) Hyperglycemia: Status: Acute Additional A&P Information Acute hypoxic respiratory failure secondary to COVID-19 pneumonia and PE. Failed outpatient management with steroids and supplemental oxygen. COVID-19 pneumonia. Stable but still requires high concentration oxygen via high flow delivery system. Continuing steroids, vitamins. Frequent repositioning, proning, and incentive spirometry is discussed. PE. I received a call from [facility] yesterday.. Radiologist kindly informed me that review of the patient's CT revealed a PE. Continue full dose Lovenox. Doppler ultrasound of the lower extremities and echo are unremarkable. Leukocytosis secondary to CLL. Worsened probably due to steroids. Procalcitonin is still normal. No evidence of bacterial infection. Will monitor. Hyperglycemia. This is probably due to the steroids. Will use insulin sliding scale. Will require additional outpatient work-up to rule out underlying diabetes. CODE STATUS. Full code. The plan of care was discussed with the patient. She verbalized understanding and agreement. She also asked me to speak with one of her family members. She tried to call but nobody picked up the phone. I asked the nurse to let me know the number that I need to call and speak about her condition. Attestations Medical Necessity Statement*: Continuing aggressive management of acute hypoxic respiratory failure. Requires inpatient hospitalization. 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
[2021-08-17 16:58] LABS: Glucose Point of Care 192 mg/dL (70-110)
[2021-08-17 21:28] LABS: Glucose Point of Care 221 mg/dL (70-110)
[2021-08-18] VITALS (14 sets, daily range): BP systolic 107–122; BP diastolic 62–74; PULSE 52–74; RESP 17–25; TEMP 36.5–37.2; O2SAT 90–94
[2021-08-18] MEDS: enoxaparin 60 mg/0.6 mL Syringe SUBCUT ×2 (01:46→13:04)
[2021-08-18 06:34] LABS: Glucose Point of Care 184 mg/dL (70-110)
[2021-08-18 06:46] LABS: Hematocrit 39.3 % (37.0-47.0); Hemoglobin 12.7 g/dL (11.5-15.3); Lymphocytes # 42.8 10^3/uL (0.8-4.8); Lymphocytes % 74.8 %; Mean Corpuscular HGB Conc 32.3 g/dL (30.0-36.0); Mean Corpuscular Hemoglobin 29.1 pg (28.0-34.0); Mean Corpuscular Volume 90.1 fl (81-99); Mean Platelet Volume 10.8 fL (7.4-10.4); Monocytes # 0.9 10^3/uL (0.2-0.9); Monocytes % 1.6 %; Neutrophils # 13.15 10^3/uL (1.8-7.7); Neutrophils % 23.1 %; Nucleated Red Blood Cells % 0 %; Platelet Count 567 10^3/cmm (130-400); Red Blood Count 4.36 10^6/uL (4.1-5.3); Red Cell Distribution Width 13.5 % (12.1-15.1)
[2021-08-18 07:01] LABS: C Reactive Protein 12.5 mg/L (0.0-4.9); Magnesium 2.3 mg/dL (1.7-2.3)
[2021-08-18 07:04] LABS: Albumin Level 3.4 g/dL (3.5-5.2); Anion Gap 20.8 (5-19); Blood Urea Nitrogen 25 mg/dL (8-23); Calcium 8.4 mg/dL (8.5-10.5); Carbon Dioxide 23 mmol/L (22-29); Chloride 101 mmol/L (98-107); Glomerular Filtration Rate 99.4 mL/min (90-130); Glucose 174 mg/dL (65-115); Phosphorus 3.9 mg/dL (2.5-4.5); Potassium 3.8 mmol/L (3.5-5.1); Sodium 141 mmol/L (136-145)
[2021-08-18 07:29] LABS: Estmated Average Glucose 140; Hemoglobin A1C 6.5 % (4.0-6.0)
[2021-08-18 08:13] LABS: Slide Review Slide Review Perform
[2021-08-18 08:15] LABS: White Blood Count 57.2 10^3/uL (4.0-10.0)
[2021-08-18] MEDS: ascorbic acid 500 mg Tablet 1000 MG PO ×2 (08:41→17:21)
[2021-08-18] MEDS: insulin lispro 100 unit/1 mL SUBCUT ×3 (08:41→21:17)
[2021-08-18] MEDS: zinc gluconate 50 mg Tablet PO (08:41)
[2021-08-18] MEDS: cholecalciferol (vitamin D3) 1,000 unit Tablet 2000 UNIT PO (08:41)
[2021-08-18 10:56] LABS: Glucose Point of Care 215 mg/dL (70-110)
--- NOTE | 2021-08-18 11:23 | PC.SOCIAL ---
IMM Updated IMM. Provided pt a copy. Initialed, dated, & timed copy in chart.
--- NOTE | 2021-08-18 12:59 | PM.PN ---
Subjective Subjective: Interval history: No significant events since yesterday. The patient reports feeling a little better today. Some improvement of her breathing. Still has some cough. No fever or chills, chest pain, palpitations, nausea or vomiting, diarrhea Medications: Reviewed: Yes Medication Review Details: Generic Name Dose Route Start Last Admin Trade Name Nicky PRN Reason Stop Dose Admin Albuterol/Ipratrop ium 3 ml 08/15/21 18:12 08/16/21 09:14 Ipratropium-Albu terol 3 Ml Neb INHALATION 3 ml Q4H.RESPIRATORY P RN Administration SHORTNESS OF SHAILESH TH Ascorbic Acid 1,000 mg 08/16/21 09:00 08/18/21 08:41 Ascorbic Acid 50 0 Mg Tablet PO 1,000 mg BID CAR Administration Enoxaparin Sodium 60 mg 08/16/21 13:00 08/18/21 01:46 Enoxaparin 60 Mg /0.6 Ml Syringe SUBCUT 60 mg Q12H CAR Administration Insulin Human Lisp ro 0 unit 08/15/21 21:00 08/18/21 12:46 Insulin Lispro 1 00 Unit/1 Ml SUBCUT Not Given [facility]BED[facility] Protocol Vitamin D 2,000 unit 08/16/21 09:00 08/18/21 08:41 Cholecalciferol (Vitamin D3) 1,000 Unit Tablet PO 2,000 unit DAILY CAR Administration Zinc Gluconate 50 mg 08/16/21 09:00 08/18/21 08:41 Zinc Gluconate 5 0 Mg Tablet PO 50 mg DAILY CAR Administration Vitals/I&O/Wt Last Vital Signs Temp 98.1 F 08/18/21 12:00 Pulse 74 08/18/21 12:00 Resp 20 H 08/18/21 12:00 BP 115/74 08/18/21 12:00 Pulse Ox 93 08/18/21 12:00 08/17/21 08/18/21 08/18/21 22:59 06:59 14:59 Intake Total 480 / 960 237 / 1197 120 / 120 Output Total 850 / 850 Balance -370 / 110 237 / 347 120 / 120 Physical Exam Narrative: EXAM NARRATIVE: Awake alert oriented x3. No acute distress. Responses are adequate. Mood and affect are appropriate. Skin is warm and dry. Moist mucous membranes Neck is supple. No JVD Eyes PERRL, extraocular muscles are intact Lungs decreased breath sounds bibasilarly. No wheezes. Mild bilateral crackles are present. No respiratory distress. Heart S1, S2, regular Abdomen soft, nontender, bowel sounds are present Extremities: Bilateral pedal edema. No cyanosis or calf tenderness bilaterally Neuro examination is nonfocal. Data : 08/18/21 05:31 08/18/21 05:31 A&P Assessment and plan (1) Acute and chronic respiratory failure with hypoxia: Status: Acute (2) Pneumonia due to COVID-19 virus: Status: Acute (3) Immunosuppressed status: Status: Acute (4) Hyperglycemia: Status: Acute Additional A&P Information Acute hypoxic respiratory failure secondary to COVID-19 pneumonia and PE. Failed outpatient management with steroids and supplemental oxygen. COVID-19 pneumonia. Stable but still requires high concentration oxygen via high flow delivery system. Continuing steroids, vitamins. Frequent repositioning, proning, and incentive spirometry is discussed. Oxygen demand has slightly improved. We will start going down on steroids. PE. Continue full dose Lovenox. Doppler ultrasound of the lower extremities and echo are unremarkable. Leukocytosis secondary to CLL. Worsened probably due to steroids and acute illness. Procalcitonin is still normal. No evidence of bacterial infection. Will monitor. Discussed with Dr. Oakley. He agreed with the plan of care. No reason to be concerned about increasing leukocytosis in this settings unless the patient develops acute anemia or thrombocytopenia. I appreciate Dr. Oakley's input. The patient will need outpatient follow-up with Dr. Oakley after discharge. Hyperglycemia. A1c is elevated. Will need further outpatient work-up and monitoring. Continue insulin sliding scale. CODE STATUS. Full code. The plan of care was discussed with the patient. She verbalized understanding and agreement. I am also going to call patient's niece today. Please continue updating the family. Attestations Medical Necessity Statement*: Patient is still in significant respiratory failure on high flow oxygen with high FiO2. Requires inpatient hospitalization. 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
[2021-08-18 17:00] LABS: Glucose Point of Care 343 mg/dL (70-110)
[2021-08-18 20:52] LABS: Glucose Point of Care 211 mg/dL (70-110)
[2021-08-19] VITALS (15 sets, daily range): BP systolic 109–120; BP diastolic 68–74; PULSE 57–76; RESP 16–25; TEMP 36.4–37.1; O2SAT 90–98
[2021-08-19] MEDS: enoxaparin 60 mg/0.6 mL Syringe SUBCUT ×2 (00:14→12:23)
[2021-08-19 06:31] LABS: Basophils # 0.1 10^3/uL (0.0-0.1); Basophils % 0.1 %; Hematocrit 39.3 % (37.0-47.0); Hemoglobin 12.6 g/dL (11.5-15.3); Lymphocytes # 48.7 10^3/uL (0.8-4.8); Lymphocytes % 79.2 %; Mean Corpuscular HGB Conc 32.1 g/dL (30.0-36.0); Mean Corpuscular Volume 90.6 fl (81-99); Mean Platelet Volume 10.3 fL (7.4-10.4); Monocytes # 1.1 10^3/uL (0.2-0.9); Monocytes % 1.8 %; Neutrophils % 18.2 %; Nucleated Red Blood Cells % 0 %; Platelet Count 556 10^3/cmm (130-400); Red Blood Count 4.34 10^6/uL (4.1-5.3); Red Cell Distribution Width 13.4 % (12.1-15.1)
[2021-08-19 06:45] LABS: Alanine Aminotransferase 11 U/L (0-33); Albumin Level 3.2 g/dL (3.5-5.2); Alkaline Phosphatase 60 IU/L (35-105); Aspartate Amino Transferase 11 U/L (0-32); Blood Urea Nitrogen 23 mg/dL (8-23); Calcium 8.3 mg/dL (8.5-10.5); Carbon Dioxide 29 mmol/L (22-29); Chloride 103 mmol/L (98-107); Globulin 2.3 g/dL (1.3-4.6); Glomerular Filtration Rate 99.4 mL/min (90-130); Glucose 131 mg/dL (65-115); Osmolality Calculated 299 mOsm/kg (285-295); Sodium 142 mmol/L (136-145); Total Bilirubin 0.4 mg/dL (0.15-1.2); Total Protein 5.5 g/dL (6.6-8.7)
[2021-08-19 06:51] LABS: Procalcitonin 0.14 ng/mL (0-0.5)
--- NOTE | 2021-08-19 07:00 | XRR_ITS ---
PROCEDURE INFORMATION: Exam: XR Chest Exam date and time: 08/19/2021 7:00 AM Age: 66 years old Clinical indication: Other: Follow up covid TECHNIQUE: Imaging protocol: XR of the chest. Views: 1 view. COMPARISON: CR XR chest 1V portable [id number] 08/17/2021 6:46 AM FINDINGS: Lungs: Persistent bilateral airspace opacities. No large pleural effusion or pneumothorax. Pleural spaces: See Lungs finding. Heart/Mediastinum: Stable cardiomediastinal silhouette. Bones/joints: No acute osseous injury identified. XR/XR chest 1V portable [id number] IMPRESSION: Persistent bilateral airspace opacities.
[2021-08-19] MEDS: zinc gluconate 50 mg Tablet PO (07:36)
[2021-08-19] MEDS: cholecalciferol (vitamin D3) 1,000 unit Tablet 2000 UNIT PO (07:36)
[2021-08-19] MEDS: ascorbic acid 500 mg Tablet 1000 MG PO ×2 (07:36→17:23)
[2021-08-19 07:48] LABS: Slide Review Slide Review Perform; White Blood Count 61.5 10^3/uL (4.0-10.0)
[2021-08-19 08:38] LABS: Glucose Point of Care 130 mg/dL (70-110)
[2021-08-19] MEDS: ipratropium-albuterol 3 mL Neb INHALATION ×3 (08:50→21:06)
[2021-08-19 11:23] LABS: Glucose Point of Care 160 mg/dL (70-110)
--- NOTE | 2021-08-19 11:44 | PM.PN ---
Subjective Subjective: Interval history: Seen this morning. She is currently on heated high flow. Also has some blood crusting seen at [facility]. Says she feels a little bit better compared to admission and has been told that she will need to stay in the hospital for 3 weeks at least. Offers no complaints and there were no acute events overnight. Vitals/I&O/Wt Last Vital Signs Temp 98.1 F 08/19/21 08:00 Pulse 57 L 08/19/21 08:52 Resp 18 08/19/21 08:52 BP 116/74 08/19/21 08:00 Pulse Ox 94 08/19/21 08:52 08/18/21 08/19/21 08/19/21 22:59 06:59 14:59 Intake Total 540 / 900 100 / 1000 Output Total 750 / 750 300 / 1050 Balance -210 / 150 -200 / -50 Weight last 48 hrs Weight 67.585 kg Physical Exam Narrative: EXAM NARRATIVE: General: Alert oriented x3, patient seen laying in bed on heated high flow. HEENT: Normocephalic, atraumatic, EOMI, breathing comfortably, no acute respiratory distress. Cardio: Regular rate rhythm, normal S1-S2, no murmurs rubs gallops, Respiratory: Good bilateral air entry, diminished at bases with coarse breath sounds, no wheezes no rhonchi appreciated GI: Abdomen soft, nontender, nondistended, bowel sounds + Behavior: Appropriate and cooperative Extremities: no edema, no cyanosis Data : 08/19/21 06:01 08/19/21 06:01 A&P Assessment and plan (1) Immunosuppressed status: Status: Acute (2) Pneumonia due to COVID-19 virus: Status: Acute (3) Acute and chronic respiratory failure with hypoxia: Status: Acute (4) COVID-19: Status: Acute (5) CLL (chronic lymphocytic leukemia): Status: Acute Additional A&P Information #COVID-19 pneumonia #History of CLL currently not on treatment #Vaccinated for Covid #Acute pulmonary embolism this admission #Immunocompromise status Hospital course so far Patient was admitted on 08/15/2021 for worsening shortness of breath and worsening hypoxia. She was diagnosed with Covid 2 weeks ago and was discharged home from the ER on home oxygen and oral steroids. Patient reports oxygen kept dropping and therefore she came back to the hospital. She has been on Solu-Medrol 60 every 8 hours. She is on steroids, vitamins. Frequent positioning proning incentive spirometry discussed. Steroid dose has been decreased slightly. Currently on full dose Lovenox for PE. Lower extremity Dopplers and echo unremarkable. Also his leukocytosis secondary to CLL. Procalcitonin normal. Case was discussed with Dr. Oakley. If patient develops acute anemia or thrombocytopenia we will recall Dr. Oakley. Patient will need outpatient follow-up after discharge. Insulin sliding scale on board for hyperglycemia secondary to steroids. Patient still on heated high flow. Today's plan 08/19/2021 -Continue patient on heated high flow and escalate oxygen therapy as needed. She reports feeling slightly better. She is a full code. We will continue to monitor leukocytosis. We will continue 1 more day of full dose Lovenox and then switch her to Eliquis for PE. ?Solu-Medrol 60 every 12 hours. Full code DVT prophylaxis: On full dose Lovenox at this time. 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
[2021-08-19] MEDS: insulin lispro 100 unit/1 mL SUBCUT ×3 (12:23→20:52)
[2021-08-19 17:01] LABS: Glucose Point of Care 329 mg/dL (70-110)
[2021-08-19 20:42] LABS: Glucose Point of Care 236 mg/dL (70-110)
[2021-08-20] VITALS (11 sets, daily range): BP systolic 99–114; BP diastolic 61–71; PULSE 53–89; RESP 17–24; TEMP 36.4–36.8; O2SAT 85–96
[2021-08-20] MEDS: enoxaparin 60 mg/0.6 mL Syringe SUBCUT ×2 (00:35→14:34)
[2021-08-20 04:25] LABS: ABG PCO2 36.9 mmHg (35-45); ABG PH Result 7.54 (7.35-7.45); Arterial Blood Gas Hematocrit 38.2 % (37-47); Base Excess ABG 8.3 mmol/L (-2.0-2.0); Blood Gas Allen Test Pos; Blood Gas Operator Identificat JB; Blood Gas Sample Site Radial, right; Blood Gas Sample Type Arterial; Carboxyhemoglobin 0.5 %THgb (0.4-20.1); HCO3 ABG 31.3 mmol/L (22-26); HGB O2 Sat 90.1 % (95-100); Ionized Calcium Level - ABG 1.2 mmol/L (1.1-1.4); Methemoglobin 0.9 % (0.4-1.5); Oxygen Device NC; Oxygen Saturation ABG 91.3; PO2 ABG 52.6 mmHg (80.0-100.0); Potassium Level - ABG 3.4 mmol/L (3.5-5.0); Total Hemoglobin 12.5 g/dL (12-16)
[2021-08-20 04:26] LABS: Alveolar-Arterial Oxygen Gradi 42.1 mmHg (5-10)
[2021-08-20 06:40] LABS: Glucose Point of Care 103 mg/dL (70-110)
[2021-08-20 06:49] LABS: Hematocrit 36.2 % (37.0-47.0); Hemoglobin 11.9 g/dL (11.5-15.3); Lymphocytes # 49.6 10^3/uL (0.8-4.8); Lymphocytes % 79.6 %; Mean Corpuscular HGB Conc 32.9 g/dL (30.0-36.0); Mean Corpuscular Hemoglobin 29.6 pg (28.0-34.0); Mean Platelet Volume 10.1 fL (7.4-10.4); Monocytes % 1.6 %; Neutrophils # 11.24 10^3/uL (1.8-7.7); Neutrophils % 18.2 %; Nucleated Red Blood Cells % 0 %; Platelet Count 538 10^3/cmm (130-400); Red Blood Count 4.02 10^6/uL (4.1-5.3); Red Cell Distribution Width 13.6 % (12.1-15.1)
[2021-08-20 07:30] LABS: Anion Gap 16.6 (5-19); Blood Urea Nitrogen 17 mg/dL (8-23); Carbon Dioxide 25 mmol/L (22-29); Chloride 102 mmol/L (98-107); Glomerular Filtration Rate 158.7 mL/min (90-130); Glucose 94 mg/dL (65-115); Magnesium 2.3 mg/dL (1.7-2.3); Osmolality Calculated 291 mOsm/kg (285-295); Potassium 3.6 mmol/L (3.5-5.1); Sodium 140 mmol/L (136-145)
[2021-08-20 07:32] LABS: Slide Review Slide Review Perform; White Blood Count 62.3 10^3/uL (4.0-10.0)
--- NOTE | 2021-08-20 08:00 | XRR_ITS ---
PROCEDURE INFORMATION: Exam: XR Chest Exam date and time: 08/20/2021 8:00 AM Age: 66 years old Clinical indication: Screening exam; Other screening; Additional info: TECHNIQUE: Imaging protocol: XR of the chest. Views: 1 view. Total images: 1 COMPARISON: CR XR chest 1V portable [id number] 08/19/2021 6:33 AM FINDINGS: Lungs: Bilateral pulmonary opacities are again noted and appear unchanged. Pleural spaces: Unremarkable. No pleural effusion. No pneumothorax. Heart/Mediastinum: Heart size is stable when compared to the prior exam. Bones/joints: Osseous structures are unchanged from the prior exam. XR/XR chest 1V portable [id number] Follow up IMPRESSION: Bilateral pulmonary opacities are again noted and appear unchanged.
[2021-08-20] MEDS: ipratropium-albuterol 3 mL Neb INHALATION (08:32)
[2021-08-20] MEDS: zinc gluconate 50 mg Tablet PO (10:03)
[2021-08-20] MEDS: ascorbic acid 500 mg Tablet 1000 MG PO ×2 (10:03→17:21)
[2021-08-20] MEDS: cholecalciferol (vitamin D3) 1,000 unit Tablet 2000 UNIT PO (10:03)
[2021-08-20 11:29] LABS: Glucose Point of Care 122 mg/dL (70-110)
--- NOTE | 2021-08-20 12:16 | PC.SOCIAL ---
IMM Update pg 2 of IMM updated and reviewed w/ patient. Copy provided.
--- NOTE | 2021-08-20 12:31 | P.PN_ITS ---
Subjective Subjective: Interval history: Seen and examined this morning. She feels the same as yesterday. She is on 65 L heated high flow. I did discuss the possibility of sending her to LTAC. She was concerned about her pulmonary embolism and the fact that she is on Lovenox injections. I told her we can transition her to Eliquis at discharge. She would like me to update her family and I will be calling them today. No acute events overnight and she does not offer any complaints this morning. Vitals/I&O/Wt Last Vital Signs Temp 97.7 F 08/20/21 08:00 Pulse 79 08/20/21 12:18 Resp 24 H 08/20/21 12:18 BP 99/62 08/20/21 08:00 Pulse Ox 91 08/20/21 12:18 08/19/21 08/20/21 08/20/21 22:59 06:59 14:59 Intake Total 360 / 600 440 / 1040 Output Total 500 / 500 Balance -140 / 100 440 / 540 Weight last 48 hrs Weight 66.043 kg Weight 67.585 kg Physical Exam Narrative: EXAM NARRATIVE: General: Alert oriented x3, patient seen laying in bed on heated high flow. HEENT: Normocephalic, atraumatic, EOMI, breathing comfortably, no acute respiratory distress. Cardio: Regular rate rhythm, normal S1-S2, no murmurs rubs gallops, Respiratory: Good bilateral air entry, diminished at bases with coarse breath sounds, no wheezes no rhonchi appreciated GI: Abdomen soft, nontender, nondistended, bowel sounds + Behavior: Appropriate and cooperative Extremities: no edema, no cyanosis Data : 08/20/21 06:19 08/20/21 06:19 A&P Assessment and plan (1) Immunosuppressed status: Status: Acute (2) Pneumonia due to COVID-19 virus: Status: Acute (3) Acute and chronic respiratory failure with hypoxia: Status: Acute (4) COVID-19: Status: Acute (5) CLL (chronic lymphocytic leukemia): Status: Acute Additional A&P Information #COVID-19 pneumonia #History of CLL currently not on treatment #Vaccinated for Covid #Acute pulmonary embolism this admission #Immunocompromise status Hospital course so far Patient was admitted on 08/15/2021 for worsening shortness of breath and worsening hypoxia. She was diagnosed with Covid 2 weeks ago and was discharged home from the ER on home oxygen and oral steroids. Patient reports oxygen kept dropping and therefore she came back to the hospital. She has been on Solu- Medrol 60 every 8 hours. She is on steroids, vitamins. Frequent positioning proning incentive spirometry discussed. Steroid dose has been decreased slightly. Currently on full dose Lovenox for PE. Lower extremity Dopplers and echo unremarkable. Also his leukocytosis secondary to CLL. Procalcitonin normal. Case was discussed with Dr. Oakley by previous hospitalist. If patient develops acute anemia or thrombocytopenia we will recall Dr. Oakley. Patient will need outpatient follow-up after discharge. Insulin sliding scale on board for hyperglycemia secondary to steroids. Patient still on heated high flow. Today's plan 08/20/2021 -Continue patient on heated high flow and escalate oxygen therapy as needed. She is a full code. We will continue to monitor leukocytosis. We will continue 1 more day of full dose Lovenox and then switch her to Eliquis for PE. ?Solu-Medrol 60 every 12 hours. Full code DVT prophylaxis: On full dose Lovenox at this time. Discussed possibility of sending patient to LTAC and for now she is agreeable. I had an extensive discussion with her explaining what LTAC is and also regarding her pulmonary embolism. Patient believes to booster dose for Covid gave her Covid this time. communications station manager Oma was also present in the room when I spoke to patient. She would like me to call her family to give them an update. I will be doing that today. Attestations Medical Necessity Statement*: Greater than 48-hour stay. Coding Level of Care Code Acute Ict Help Desk Technician for [facility] Fwd Diagnoses Immunosuppressed status D84.9 Pneumonia due to COVID-19 virus U07.1; J12.82 Acute and chronic respiratory failure with hypoxia J96.21 COVID-19 U07.1 CLL (chronic lymphocytic leukemia) C91.10
[2021-08-20] MEDS: insulin lispro 100 unit/1 mL SUBCUT ×2 (17:20→21:35)
[2021-08-20 17:47] LABS: Glucose Point of Care 189 mg/dL (70-110)
[2021-08-20 21:12] LABS: Glucose Point of Care 281 mg/dL (70-110)
[2021-08-21] VITALS (9 sets, daily range): BP systolic 99–125; BP diastolic 57–69; PULSE 53–85; RESP 16–22; TEMP 36.5–36.7; O2SAT 90–95
[2021-08-21] MEDS: enoxaparin 60 mg/0.6 mL Syringe SUBCUT ×2 (00:51→14:57)
[2021-08-21 05:50] LABS: Hematocrit 39.5 % (37.0-47.0); Hemoglobin 12.6 g/dL (11.5-15.3); Lymphocytes # 62.4 10^3/uL (0.8-4.8); Lymphocytes % 80.2 %; Mean Corpuscular HGB Conc 31.9 g/dL (30.0-36.0); Mean Corpuscular Hemoglobin 29.3 pg (28.0-34.0); Mean Corpuscular Volume 91.9 fl (81-99); Mean Platelet Volume 10.2 fL (7.4-10.4); Monocytes % 1.2 %; Neutrophils # 13.74 10^3/uL (1.8-7.7); Neutrophils % 17.8 %; Nucleated Red Blood Cells % 0 %; Platelet Count 605 10^3/cmm (130-400); Red Cell Distribution Width 13.9 % (12.1-15.1)
[2021-08-21 06:08] LABS: Anion Gap 13.8 (5-19); Blood Urea Nitrogen 18 mg/dL (8-23); Calcium 8.3 mg/dL (8.5-10.5); Carbon Dioxide 29 mmol/L (22-29); Chloride 101 mmol/L (98-107); Glomerular Filtration Rate 122.7 mL/min (90-130); Glucose 120 mg/dL (65-115); Magnesium 2.4 mg/dL (1.7-2.3); Osmolality Calculated 293 mOsm/kg (285-295); Potassium 3.8 mmol/L (3.5-5.1); Sodium 140 mmol/L (136-145)
[2021-08-21 06:31] LABS: Glucose Point of Care 107 mg/dL (70-110)
[2021-08-21 07:32] LABS: White Blood Count 77.8 10^3/uL (4.0-10.0)
[2021-08-21] MEDS: ascorbic acid 500 mg Tablet 1000 MG PO ×2 (09:03→18:14)
[2021-08-21] MEDS: zinc gluconate 50 mg Tablet PO (09:03)
[2021-08-21] MEDS: cholecalciferol (vitamin D3) 1,000 unit Tablet 2000 UNIT PO (09:03)
[2021-08-21 11:19] LABS: Glucose Point of Care 128 mg/dL (70-110)
--- NOTE | 2021-08-21 14:12 | P.PN_ITS ---
Subjective Subjective: Interval history: Seen this morning. Offers no complaints. Is down to 50% FiO2. Switched to 12 L nasal cannula and is saturating well. She is making positive progress. No acute events overnight. Vitals/I&O/Wt Last Vital Signs Temp 97.7 F 08/21/21 12:02 Pulse 73 08/21/21 12:20 Resp 18 08/21/21 12:20 BP 112/64 08/21/21 12:02 Pulse Ox 92 08/21/21 12:20 08/20/21 08/21/21 08/21/21 22:59 06:59 14:59 Intake Total 310 / 1010 240 / 1250 120 / 120 Output Total 600 / 600 Balance 310 / 1010 -360 / 650 120 / 120 Weight last 48 hrs Weight 65.862 kg Weight 66.043 kg Physical Exam Narrative: EXAM NARRATIVE: General: Alert oriented x3, patient seen laying in bed on 50% FiO2 heated high flow. As I was in the room she was placed on 12 L nasal cannula and saturating well. HEENT: Normocephalic, atraumatic, EOMI, breathing comfortably, no acute respiratory distress. Cardio: Regular rate rhythm, normal S1-S2, no murmurs rubs gallops, Respiratory: Good bilateral air entry, diminished at bases with coarse breath sounds, no wheezes no rhonchi appreciated GI: Abdomen soft, nontender, nondistended, bowel sounds + Behavior: Appropriate and cooperative Extremities: no edema, no cyanosis Data : 08/21/21 05:38 08/21/21 05:38 A&P Assessment and plan (1) Immunosuppressed status: Status: Acute (2) Pneumonia due to COVID-19 virus: Status: Acute (3) Acute and chronic respiratory failure with hypoxia: Status: Acute (4) COVID-19: Status: Acute (5) CLL (chronic lymphocytic leukemia): Status: Acute Additional A&P Information #COVID-19 pneumonia #History of CLL currently not on treatment #Vaccinated for Covid #Acute pulmonary embolism this admission #Immunocompromise status Hospital course so far Patient was admitted on 08/15/2021 for worsening shortness of breath and worsening hypoxia. She was diagnosed with Covid 2 weeks ago and was discharged home from the ER on home oxygen and oral steroids. Patient reports oxygen kept dropping and therefore she came back to the hospital. She has been on Solu- Medrol 60 every 8 hours. She is on steroids, vitamins. Frequent positioning proning incentive spirometry discussed. Steroid dose has been decreased slightly. Currently on full dose Lovenox for PE. Lower extremity Dopplers and echo unremarkable. Also his leukocytosis secondary to CLL. Procalcitonin normal. Case was discussed with Dr. Oakley by previous hospitalist. If patient develops acute anemia or thrombocytopenia we will recall Dr. Oakley. Patient will need outpatient follow-up after discharge. Insulin sliding scale on board for hyperglycemia secondary to steroids. Patient on 12 L nasal cannula. Discussed briefly with Dr. Oakley regarding her elevated white count and platelet count. I have ordered a peripheral smear and flow cytometry as well. Dr. Oakley will see her as an outpatient after discharge. Today's plan 08/21/2021 -Continue patient on 12 L nasal cannula today and de-escalate oxygen therapy as warranted. She is a full code. We will continue to monitor leukocytosis. I will keep her on full dose Lovenox until discharge. At discharge we will switch her to Eliquis. ?Solu-Medrol 60 every 12 hours. She will need her prednisone taper at discharge. Full code DVT prophylaxis: On full dose Lovenox at this time. 08/20/2021: Discussed possibility of sending patient to LTAC and for now she is agreeable. I had an extensive discussion with her explaining what LTAC is and also regarding her pulmonary embolism. Patient believes to booster dose for Covid gave her Covid this time. revenue manager Oma was also present in the room when I spoke to patient. She would like me to call her family to give them an update. I will be doing that today. Attestations Medical Necessity Statement*: >48 hour stay Coding Level of Care Code Acute Garbage Pick Up Worker for [facility] Fwd Diagnoses Immunosuppressed status D84.9 Pneumonia due to COVID-19 virus U07.1; J12.82 Acute and chronic respiratory failure with hypoxia J96.21 COVID-19 U07.1 CLL (chronic lymphocytic leukemia) C91.10
[2021-08-21 14:30] LABS: LAB Peripheral Smear Sent for Review
[2021-08-21 17:05] LABS: Glucose Point of Care 258 mg/dL (70-110)
[2021-08-21] MEDS: insulin lispro 100 unit/1 mL SUBCUT ×2 (18:17→21:25)
[2021-08-21 21:16] LABS: Glucose Point of Care 293 mg/dL (70-110)
[2021-08-22] VITALS (8 sets, daily range): BP systolic 94–115; BP diastolic 58–72; PULSE 54–77; RESP 16–19; TEMP 36.4–36.9; O2SAT 86–97
[2021-08-22] MEDS: enoxaparin 60 mg/0.6 mL Syringe SUBCUT ×2 (01:50→13:42)
[2021-08-22 06:47] LABS: Glucose Point of Care 121 mg/dL (70-110)
[2021-08-22 06:58] LABS: Basophils # 0.1 10^3/uL (0.0-0.1); Basophils % 0.1 %; Hematocrit 37.1 % (37.0-47.0); Hemoglobin 11.6 g/dL (11.5-15.3); Lymphocytes # 61.6 10^3/uL (0.8-4.8); Lymphocytes % 81.2 %; Mean Corpuscular HGB Conc 31.3 g/dL (30.0-36.0); Mean Corpuscular Hemoglobin 29.2 pg (28.0-34.0); Mean Corpuscular Volume 93.5 fl (81-99); Mean Platelet Volume 10.3 fL (7.4-10.4); Monocytes % 1.3 %; Neutrophils # 12.72 10^3/uL (1.8-7.7); Neutrophils % 16.8 %; Nucleated Red Blood Cells % 0 %; Platelet Count 657 10^3/cmm (130-400); Red Blood Count 3.97 10^6/uL (4.1-5.3); Red Cell Distribution Width 13.8 % (12.1-15.1)
[2021-08-22 07:23] LABS: Anion Gap 15.1 (5-19); Blood Urea Nitrogen 17 mg/dL (8-23); Calcium 7.9 mg/dL (8.5-10.5); Carbon Dioxide 25 mmol/L (22-29); Chloride 104 mmol/L (98-107); Glomerular Filtration Rate 122.7 mL/min (90-130); Glucose 126 mg/dL (65-115); Magnesium 2.3 mg/dL (1.7-2.3); Osmolality Calculated 293 mOsm/kg (285-295); Potassium 4.1 mmol/L (3.5-5.1); Sodium 140 mmol/L (136-145)
[2021-08-22] MEDS: ascorbic acid 500 mg Tablet 1000 MG PO ×2 (07:45→17:49)
[2021-08-22] MEDS: zinc gluconate 50 mg Tablet PO (07:45)
[2021-08-22] MEDS: cholecalciferol (vitamin D3) 1,000 unit Tablet 2000 UNIT PO (07:45)
[2021-08-22 08:28] LABS: Slide Review Slide Review Perform
[2021-08-22 08:30] LABS: White Blood Count 75.9 10^3/uL (4.0-10.0)
[2021-08-22 12:01] LABS: Glucose Point of Care 133 mg/dL (70-110)
--- NOTE | 2021-08-22 12:33 | PC.SOCIAL ---
IMM Update pg 2 of IMM updated and reviewed w/ patient. Copy provided.
--- NOTE | 2021-08-22 13:17 | PM.PN ---
Subjective Subjective: Interval history: Seen this morning. Patient is on a liter nasal cannula. She is in good spirits and feels a lot better compared to before. Vitals/I&O/Wt Last Vital Signs Temp 98.2 F 08/22/21 11:06 Pulse 69 08/22/21 11:06 Resp 18 08/22/21 11:06 BP 94/58 08/22/21 11:06 Pulse Ox 94 08/22/21 11:06 08/21/21 08/22/21 08/22/21 22:59 06:59 14:59 Intake Total 240 / 360 180 / 540 120 / 120 Output Total 600 / 600 200 / 200 Balance -360 / -240 180 / -60 -80 / -80 Weight last 48 hrs Weight 65.862 kg Physical Exam Narrative: EXAM NARRATIVE: General: Alert oriented x3, patient seen laying in bed appearing much better compared to prior days and is on 8L nasal cannula. HEENT: Normocephalic, atraumatic, EOMI, breathing comfortably, no acute respiratory distress. Cardio: Regular rate rhythm, normal S1-S2, no murmurs rubs gallops, Respiratory: Good bilateral air entry, diminished at bases with coarse breath sounds, no wheezes no rhonchi appreciated, lung exam improved compared to yesterday. GI: Abdomen soft, nontender, nondistended, bowel sounds + Behavior: Appropriate and cooperative Extremities: no edema, no cyanosis Data : 08/22/21 06:23 08/22/21 06:23 A&P Assessment and plan (1) Immunosuppressed status: Status: Acute (2) Pneumonia due to COVID-19 virus: Status: Acute (3) Acute and chronic respiratory failure with hypoxia: Status: Acute (4) COVID-19: Status: Acute (5) CLL (chronic lymphocytic leukemia): Status: Acute Additional A&P Information #COVID-19 pneumonia #History of CLL currently not on treatment #Vaccinated for Covid #Acute pulmonary embolism this admission #Immunocompromise status Hospital course so far Patient was admitted on 08/15/2021 for worsening shortness of breath and worsening hypoxia. She was diagnosed with Covid 2 weeks ago and was discharged home from the ER on home oxygen and oral steroids. Patient reports oxygen kept dropping and therefore she came back to the hospital. She has been on Solu-Medrol 60 every 8 hours. She is on steroids, vitamins. Frequent positioning proning incentive spirometry discussed. Steroid dose has been decreased slightly. Currently on full dose Lovenox for PE. Lower extremity Dopplers and echo unremarkable. Also his leukocytosis secondary to CLL. Procalcitonin normal. Case was discussed with Dr. Oakley by previous hospitalist. If patient develops acute anemia or thrombocytopenia we will recall Dr. Oakley. Patient will need outpatient follow-up after discharge. Insulin sliding scale on board for hyperglycemia secondary to steroids. Patient on 12 L nasal cannula. Discussed briefly with Dr. Oakley regarding her elevated white count and platelet count. I have ordered a peripheral smear and flow cytometry as well. Dr. Oakley will see her as an outpatient after discharge. Today's plan 08/22/2021 -Continue patient on 8 L nasal cannula today and de-escalate oxygen therapy as warranted. She is a full code. We will continue to monitor leukocytosis. I will keep her on full dose Lovenox until discharge. At discharge we will switch her to Eliquis. ?Solu-Medrol 60 every 12 hours. She will need her prednisone taper at discharge. Full code DVT prophylaxis: On full dose Lovenox at this time. Attestations Medical Necessity Statement*: >24 hrs Coding Level of Care Code Acute Legal Billing Specialist for [facility] Fwd Diagnoses Immunosuppressed status D84.9 Pneumonia due to COVID-19 virus U07.1; J12.82 Acute and chronic respiratory failure with hypoxia J96.21 COVID-19 U07.1 CLL (chronic lymphocytic leukemia) C91.10
[2021-08-22 17:10] LABS: Glucose Point of Care 197 mg/dL (70-110)
[2021-08-22] MEDS: insulin lispro 100 unit/1 mL SUBCUT ×2 (17:48→22:36)
--- NOTE | 2021-08-22 19:58 | PC.NURSE ---
Shift report received from Carmen BAE. Patient in bed/ watching TV. Denies pain. O2 HF 10L. No needs voiced at this time.
[2021-08-22 21:27] LABS: Glucose Point of Care 338 mg/dL (70-110)
[2021-08-23] VITALS (9 sets, daily range): BP systolic 88–117; BP diastolic 51–72; PULSE 60–83; RESP 17–18; TEMP 36.5–36.9; O2SAT 92–100
[2021-08-23] MEDS: enoxaparin 60 mg/0.6 mL Syringe SUBCUT (00:42)
--- NOTE | 2021-08-23 01:30 | PC.NURSE ---
Patient resting at this time. Denies pain. No s/s of pain or discomfort. No needs voiced at this time.
[2021-08-23 03:42] LABS: ABG PCO2 36.8 mmHg (35-45); Alveolar-Arterial Oxygen Gradi 6.5 mmHg (5-10); Arterial Blood Gas Hematocrit 35.2 % (37-47); Base Excess ABG 5.2 mmol/L (-2.0-2.0); Blood Gas Allen Test Pos; Blood Gas Sample Site Radial, right; Blood Gas Sample Type Arterial; Carboxyhemoglobin 0.4 %THgb (0.4-20.1); HCO3 ABG 28.6 mmol/L (22-26); HGB O2 Sat 91.2 % (95-100); Ionized Calcium Level - ABG 1.2 mmol/L (1.1-1.4); Methemoglobin 0.8 % (0.4-1.5); Oxygen Device NC; Oxygen Saturation ABG 92.3; PO2 ABG 55.1 mmHg (80.0-100.0); Potassium Level - ABG 3.4 mmol/L (3.5-5.0); Total Hemoglobin 11.5 g/dL (12-16)
[2021-08-23 06:05] LABS: Hematocrit 36.3 % (37.0-47.0); Hemoglobin 11.3 g/dL (11.5-15.3); Mean Corpuscular HGB Conc 31.1 g/dL (30.0-36.0); Mean Corpuscular Hemoglobin 28.8 pg (28.0-34.0); Mean Corpuscular Volume 92.4 fl (81-99); Mean Platelet Volume 10.2 fL (7.4-10.4); Platelet Count 621 10^3/cmm (130-400); Red Blood Count 3.93 10^6/uL (4.1-5.3); Red Cell Distribution Width 13.9 % (12.1-15.1)
[2021-08-23 06:40] LABS: Anion Gap 13.6 (5-19); Blood Urea Nitrogen 17 mg/dL (8-23); Calcium 8.1 mg/dL (8.5-10.5); Carbon Dioxide 28 mmol/L (22-29); Chloride 104 mmol/L (98-107); Glomerular Filtration Rate 122.7 mL/min (90-130); Glucose 92 mg/dL (65-115); Magnesium 2.2 mg/dL (1.7-2.3); Osmolality Calculated 295 mOsm/kg (285-295); Potassium 3.6 mmol/L (3.5-5.1); Sodium 142 mmol/L (136-145)
[2021-08-23 06:45] LABS: Glucose Point of Care 101 mg/dL (70-110)
[2021-08-23 08:08] LABS: Slide Review Slide Review Perform; White Blood Count 86.3 10^3/uL (4.0-10.0)
[2021-08-23 08:09] LABS: Lymphocytes 77 %; Segmented Neutrophils 23 %; Total Cells Counted 100 (0-100)
[2021-08-23 08:10] LABS: Eosinophils 0 %; Platelet Estimate Increased (Normal); Smudge Cells 2+
[2021-08-23] MEDS: ascorbic acid 500 mg Tablet 1000 MG PO ×2 (09:09→18:41)
[2021-08-23] MEDS: cholecalciferol (vitamin D3) 1,000 unit Tablet 2000 UNIT PO (09:09)
[2021-08-23] MEDS: zinc gluconate 50 mg Tablet PO (09:09)
[2021-08-23] MEDS: acetaminophen 325 mg Tablet 650 MG PO (09:16)
--- NOTE | 2021-08-23 11:55 | PM.PN ---
Subjective Subjective: Interval history: Seen this morning. She is on 10 L high flow nasal cannula at this time. Appears very comfortable however. Peripheral smear has been sent to [facility] for flow cytometry. White count is 88,000 today. Pathologist called me yesterday with concern of conversion to CML. I discussed this with the patient and she is willing to stay until results come back. Vitals/I&O/Wt Last Vital Signs Temp 97.8 F 08/23/21 08:00 Pulse 62 08/23/21 08:00 Resp 18 08/23/21 08:00 BP 117/72 08/23/21 08:00 Pulse Ox 95 08/23/21 08:00 08/22/21 08/23/21 08/23/21 22:59 06:59 14:59 Intake Total 480 / 720 480 / 1200 120 / 120 Output Total 480 / 680 320 / 1000 Balance 0 / 40 160 / 200 120 / 120 Physical Exam Narrative: EXAM NARRATIVE: General: Alert oriented x3, patient seen laying in bed no acute distress, on 10 L nasal cannula. HEENT: Normocephalic, atraumatic, EOMI, breathing comfortably, no acute respiratory distress. Cardio: Regular rate rhythm, normal S1-S2, no murmurs rubs gallops, Respiratory: Good bilateral air entry, diminished at bases with coarse breath sounds, no wheezes no rhonchi appreciated, lung exam unchanged compared to yesterday. GI: Abdomen soft, nontender, nondistended, bowel sounds + Behavior: Appropriate and cooperative Extremities: no edema, no cyanosis Data : 08/23/21 05:30 08/23/21 05:30 A&P Assessment and plan (1) Immunosuppressed status: Status: Acute (2) Pneumonia due to COVID-19 virus: Status: Acute (3) Acute and chronic respiratory failure with hypoxia: Status: Acute (4) COVID-19: Status: Acute (5) CLL (chronic lymphocytic leukemia): Status: Acute Additional A&P Information #COVID-19 pneumonia #History of CLL currently not on treatment #Vaccinated for Covid #Acute pulmonary embolism this admission #Immunocompromise status Hospital course so far Patient was admitted on 08/15/2021 for worsening shortness of breath and worsening hypoxia. She was diagnosed with Covid 2 weeks ago and was discharged home from the ER on home oxygen and oral steroids. Patient reports oxygen kept dropping and therefore she came back to the hospital. She has been on Solu-Medrol 60 every 8 hours. She is on steroids, vitamins. Frequent positioning proning incentive spirometry discussed. Steroid dose has been decreased slightly. Currently on full dose Lovenox for PE. Lower extremity Dopplers and echo unremarkable. Also his leukocytosis secondary to CLL. Procalcitonin normal. Case was discussed with Dr. Oakley by previous hospitalist. If patient develops acute anemia or thrombocytopenia we will recall Dr. Oakley. Patient will need outpatient follow-up after discharge. Insulin sliding scale on board for hyperglycemia secondary to steroids. Patient on 12 L nasal cannula. Discussed briefly with Dr. Oakley regarding her elevated white count and platelet count. I have ordered a peripheral smear and flow cytometry as well. Dr. Oakley will see her as an outpatient after discharge. Today's plan 08/23/2021 -Continue patient on 10 L nasal cannula today and de-escalate oxygen therapy as warranted. She is a full code. We will continue to monitor leukocytosis. DC lovenox today and start eliquis. - Sent peripheral smear for flow cytommetry. 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 ?Solu-Medrol 60 every 12 hours. She will need her prednisone taper at discharge. Full code DVT prophylaxis: Will switch to Eliquis today. Attestations Medical Necessity Statement*: > 24 - 48 hours Coding Level of Care Code Acute Entry Level Software Engineer for [facility] Fwd Diagnoses Immunosuppressed status D84.9 Pneumonia due to COVID-19 virus U07.1; J12.82 Acute and chronic respiratory failure with hypoxia J96.21 COVID-19 U07.1 CLL (chronic lymphocytic leukemia) C91.10
[2021-08-23 12:05] LABS: Glucose Point of Care 175 mg/dL (70-110)
[2021-08-23] MEDS: insulin lispro 100 unit/1 mL SUBCUT ×3 (12:48→21:41)
[2021-08-23 17:16] LABS: Glucose Point of Care 251 mg/dL (70-110)
[2021-08-23 21:07] LABS: Glucose Point of Care 277 mg/dL (70-110)
[2021-08-23] MEDS: apixaban 5 mg Tablet PO (21:41)
--- NOTE | 2021-08-24 03:27 | PC.NURSE ---
Patient in bed/awake. Denies pain/ no s/s of pain or discomfort. No needs voiced at this time.
[2021-08-24 04:00] VITALS: BP 90/46; PULSE 65; RESP 17; TEMP 36.8; O2SAT 90
[2021-08-24 06:14] LABS: Basophils # 0.1 10^3/uL (0.0-0.1); Basophils % 0.1 %; Hematocrit 34.1 % (37.0-47.0); Hemoglobin 10.8 g/dL (11.5-15.3); Lymphocytes # 70.5 10^3/uL (0.8-4.8); Lymphocytes % 84.1 %; Mean Corpuscular HGB Conc 31.7 g/dL (30.0-36.0); Mean Corpuscular Hemoglobin 29.3 pg (28.0-34.0); Mean Corpuscular Volume 92.4 fl (81-99); Mean Platelet Volume 10.2 fL (7.4-10.4); Monocytes # 1.2 10^3/uL (0.2-0.9); Monocytes % 1.4 %; Neutrophils # 11.48 10^3/uL (1.8-7.7); Neutrophils % 13.7 %; Nucleated Red Blood Cells % 0 %; Platelet Count 577 10^3/cmm (130-400); Red Blood Count 3.69 10^6/uL (4.1-5.3)
[2021-08-24 06:29] LABS: Anion Gap 13.4 (5-19); Blood Urea Nitrogen 14 mg/dL (8-23); Calcium 7.9 mg/dL (8.5-10.5); Carbon Dioxide 25 mmol/L (22-29); Chloride 105 mmol/L (98-107); Glomerular Filtration Rate 158.7 mL/min (90-130); Glucose 83 mg/dL (65-115); Osmolality Calculated 290 mOsm/kg (285-295); Potassium 3.4 mmol/L (3.5-5.1); Sodium 140 mmol/L (136-145)
[2021-08-24 06:43] LABS: Glucose Point of Care 91 mg/dL (70-110)
[2021-08-24 07:31] VITALS: BP 107/69; PULSE 63; RESP 18; TEMP 36.7; O2SAT 89
[2021-08-24 07:48] LABS: Slide Review Slide Review Perform; White Blood Count 83.9 10^3/uL (4.0-10.0)
[2021-08-24] MEDS: apixaban 5 mg Tablet PO (09:43)
[2021-08-24] MEDS: ascorbic acid 500 mg Tablet 1000 MG PO (09:43)
[2021-08-24] MEDS: zinc gluconate 50 mg Tablet PO (09:43)
[2021-08-24] MEDS: cholecalciferol (vitamin D3) 1,000 unit Tablet 2000 UNIT PO (09:43)
[2021-08-24 11:39] LABS: Glucose Point of Care 104 mg/dL (70-110)
[2021-08-24 12:00] VITALS: BP 107/70; PULSE 71; RESP 16; TEMP 36.6; O2SAT 91
--- NOTE | 2021-08-24 12:12 | PM.PN ---
Subjective Subjective: Interval history: Seen this morning. Patient is down to 6 L nasal cannula at rest and exertion. Her flow cytometry results however are not back yet. She feels great Vitals/I&O/Wt Last Vital Signs Temp 98.1 F 08/24/21 07:31 Pulse 63 08/24/21 07:31 Resp 18 08/24/21 07:31 BP 107/69 08/24/21 07:31 Pulse Ox 89 L 08/24/21 07:31 08/23/21 08/24/21 08/24/21 22:59 06:59 14:59 Intake Total 740 / 860 420 / 1280 120 / 120 Output Total 480 / 480 160 / 640 Balance 260 / 380 260 / 640 120 / 120 Physical Exam Narrative: EXAM NARRATIVE: General: Alert oriented x3, patient seen sitting up in bed on 6 L nasal cannula using a shampoo. HEENT: Normocephalic, atraumatic, EOMI, breathing comfortably, no acute respiratory distress. Cardio: Regular rate rhythm, normal S1-S2, no murmurs rubs gallops, Respiratory: Good bilateral air entry, diminished at bases with coarse breath sounds, no wheezes no rhonchi appreciated, lung exam improved compared to yesterday. GI: Abdomen soft, nontender, nondistended, bowel sounds + Behavior: Appropriate and cooperative Extremities: no edema, no cyanosis Data : 08/24/21 05:24 08/24/21 05:24 A&P Assessment and plan (1) Immunosuppressed status: Status: Acute (2) Pneumonia due to COVID-19 virus: Status: Acute (3) Acute and chronic respiratory failure with hypoxia: Status: Acute (4) COVID-19: Status: Acute (5) CLL (chronic lymphocytic leukemia): Status: Acute Additional A&P Information #COVID-19 pneumonia #History of CLL currently not on treatment #Vaccinated for Covid #Acute pulmonary embolism this admission #Immunocompromise status Hospital course so far Patient was admitted on 08/15/2021 for worsening shortness of breath and worsening hypoxia. She was diagnosed with Covid 2 weeks ago and was discharged home from the ER on home oxygen and oral steroids. Patient reports oxygen kept dropping and therefore she came back to the hospital. She has been on Solu-Medrol 60 every 8 hours. She is on steroids, vitamins. Frequent positioning proning incentive spirometry discussed. Steroid dose has been decreased slightly. Currently on full dose Lovenox for PE. Lower extremity Dopplers and echo unremarkable. Also his leukocytosis secondary to CLL. Procalcitonin normal. Case was discussed with Dr. Oakley by previous hospitalist. If patient develops acute anemia or thrombocytopenia we will recall Dr. Oakley. Patient will need outpatient follow-up after discharge. Insulin sliding scale on board for hyperglycemia secondary to steroids. Patient on 6 L nasal cannula. Discussed briefly with Dr. Oakley regarding her elevated white count and platelet count. I have ordered a peripheral smear and flow cytometry as well. Dr. Oakley will see her as an outpatient after discharge. Today's plan 08/24/2021 -Continue patient on 10 L nasal cannula today and de-escalate oxygen therapy as warranted. She is a full code. We will continue to monitor leukocytosis. Continue Eliquis 5 mg twice daily. - Sent peripheral smear for flow cytommetry. 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 ?We will stop Solu-Medrol today as it completes 10 days of steroid therapy. She will not require a taper as total use was less than 2 weeks. Full code DVT prophylaxis: On Eliquis. Attestations Medical Necessity Statement*: > 24 hour stay. 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
--- NOTE | 2021-08-24 13:51 | P.DS_ITS ---
Discharge Providers Date of Admission: 08/15/21 18:19 Date of Discharge: August 24, 2021 Attending Provider at Admission: Parag Arizmendi Attending Provider at Discharge: Mary Rapp MD Primary Care Provider: Johnny Shell MD Diagnoses at Discharge Discharge Diagnosis (1) Immunosuppressed status: Status: Acute (2) Pneumonia due to COVID-19 virus: Status: Acute (3) Acute and chronic respiratory failure with hypoxia: Status: Acute (4) COVID-19: Status: Acute (5) CLL (chronic lymphocytic leukemia): Status: Acute Reason for Visit Reason for Visit: COVID + 87-89 O2, WORSENING Hospital Course Hospital Course Sera Ragsdale is a 66 year old female with past medical history of CLL, not on treatment, Covid vaccinated, who received booster about 3 weeks ago now presenting with worsening shortness of breath and worsening hypoxia. She was diagnosed with Covid about 2 weeks ago and was discharged home from ER on home oxygen and oral steroids. However her symptoms worsened several days ago. She reports that her oxygen was dropping as low as mid 60s at home today. She reports associated shortness of breath, cough. No fever or chills. No nausea or vomiting. No diarrhea. No chest pain or palpitations. No dizziness or lightheadedness. She denies similar problems before. Course: Patient was admitted for COVID 19 PNA. She remained on high flow and eventually transitioned to NE and was sent home on O2. She has hx of CLL and her WBC count started trending upwards. Peripheral smear was done and sample sent for flow cytomettry. I called lab to ask about results and was told it was sent to [place] and results will not be available for another week. This was discussed with patient and decision made to let her go home. She will follow up with Dr. Oakley as an outpatient to go over results and further management. During hospital stay, Dr. Oakley was contacted and aware that sample has been sent for flow cytometry (done by pathologist). She was also diagnosed with PE during her stay. Was given full dose lovenox and transitioned to el[place] [place] [facility]. Physical Exam Narrative: EXAM NARRATIVE: General: Alert oriented x3, patient seen sitting up in bed on 6 L nasal cannula HEENT: Normocephalic, atraumatic, EOMI, breathing comfortably, no acute respiratory distress. Cardio: Regular rate rhythm, normal S1-S2, no murmurs rubs gallops, Respiratory: Good bilateral air entry, clear to auscultation b/l GI: Abdomen soft, nontender, nondistended, bowel sounds + Behavior: Appropriate and cooperative Extremities: no edema, no cyanosis Discharge Data Data Completed and Pending: Completed Studies During Hospitalization Category Date Time Status CT angio chest PE protcl [id number] Stat Cat Scan 08/15/21 16:27 Completed XR chest 1V jassi ble [id number] Routine Exams 08/20/21 08:00 Completed XR chest 1V jassi ble [id number] Routine Exams 08/17/21 06:00 Completed XR chest 1V jassi ble [id number] Routine Exams 08/19/21 07:00 Completed XR chest 1V jassi ble [id number] Stat Exams 08/15/21 14:45 [place] [id number] Routin e Ultrasound 08/16/21 11:55 Completed CV. echo limited [id number] Routine Ultrasound 08/17/21 07:00 Completed Pending at discharge Category Date Time Status Complete Blood Co unt w/Auto AM LABS Lab 08/25/21 04:00 Ordered Miscellaneous Natalie t Stat Lab 08/21/21 08:36 Received Labs from last 24 hours 08/24/21 08/24/21 08/24/21 11:20 06:32 05:24 WBC RBC Hgb Hct MCV MCH MCHC RDW Plt Count MPV Neut % (Auto) Lymph % (Auto) [place] % (Auto) Eos % (Auto) Baso % (Auto) Neut # (Auto) Lymph # (Auto) [place] # (Auto) Eos # (Auto) Baso # (Auto) Nucleated RBC % (a uto) Nucleated RBCs # Sodium 140 Potassium 3.4 L Chloride 105 Carbon Dioxide 25 Anion Gap 13.4 BUN 14 Creatinine 0.4 L GFR Calculation 158.7 H Glucose 83 POC Glucose 104 91 Calculated Osmolal ity 290 Calcium 7.9 L Magnesium 2.0 08/24/21 08/23/21 08/23/21 05:24 20:54 17:03 WBC 83.9 H* RBC 3.69 L Hgb 10.8 L Hct 34.1 L MCV 92.4 MCH 29.3 MCHC 31.7 RDW 14.0 Plt Count 577 H MPV 10.2 Neut % (Auto) 13.7 Lymph % (Auto) 84.1 [place] % (Auto) 1.4 Eos % (Auto) 0.0 Baso % (Auto) 0.1 Neut # (Auto) 11.48 H Lymph # (Auto) 70.5 H [place] # (Auto) 1.2 H Eos # (Auto) 0.0 Baso # (Auto) 0.1 Nucleated RBC % (a uto) 0 Nucleated RBCs # 0.0 Sodium Potassium Chloride Carbon Dioxide Anion Gap BUN Creatinine GFR Calculation Glucose POC Glucose 277 H 251 H Calculated Osmolal ity Calcium Magnesium Vitals: Last Vital Signs Temp 97.8 F 08/24/21 12:00 Pulse 71 08/24/21 12:00 Resp 16 08/24/21 12:00 BP 107/70 08/24/21 12:00 Pulse Ox 91 08/24/21 12:00 Discharge Plan Discharge Patient Disposition: Home Condition: Stable Prescriptions: New Eliquis 5 mg Tablet 5 mg PO BID@0900,2100 30 Days Qty: 60 RF: 2 albuterol sulfate 90 mcg/actuation HFA aerosol inhaler 2 inh inhalation Q6H PRN (Reason: shortness of breath or wheezing) 30 Days Qty: 6.7 RF: 0 Discontinued dexamethasone 6 mg tablet 6 mg PO DAILY Qty: 7 RF: 0 Discharge Orders: Discharge Order (Routine); Ordered 08/24/21 Ordered By: Mary Rapp Other Ambulatory Orders: Complete Blood Count w/Auto (Routine) Timeframe: [id number] Location: Determined by Patient Ordered By: Mary Rapp DME: Oxygen (Order) Location: None Selected Ordered By: Mary Rapp Referrals: Randall Oakley MD [Hospitalist] - 08/30/21 2:30 pm Johnny Shell MD [Primary Care Provider] - 09/01/21 2:40 pm Discharge Diet: Regular Discharge Activity: Increase activity as tolerated and Oxygen as instructed Patient Instructions: Albuterol (By breathing), Apixaban (By mouth), Pneumonia (DC), Chronic Lymphocytic Leukemia (DC), Opioid Safety, Pneumonia Stoplight Discharge Attestations Time Spent in Discharge Care*: less than 30 min Quality Metrics Clinical Quality Measures During this hospital stay, did patient experience: VTE Contraindication to Overlap Therapy: Overlap therapy prescribed VTE Discharge Education: Education about anticoagulant therapy/Care Notes given Deep Vein Thrombosis/Pulmonary Embolism Present on Admission: No Contraindication to Pharm VTE Prophylaxis: VTE prophylaxis given Coding Level of Care Code Acute Chg FW DC note Diagnoses Immunosuppressed status D84.9 Pneumonia due to COVID-19 virus U07.1; J12.82 Acute and chronic respiratory failure with hypoxia J96.21 COVID-19 U07.1 CLL (chronic lymphocytic leukemia) C91.10
--- NOTE | 2021-08-24 14:30 | PC.SOCIAL ---
IMM Update pg 2 of IMM updated and reviewed w/ patient. Copy provided.
[2021-08-24 16:00] VITALS: BP 109/67; PULSE 73; RESP 18; TEMP 36.7; O2SAT 94
[2021-08-24 19:22] VITALS: BP 109/67; PULSE 73; RESP 18; TEMP 36.7; O2SAT 94
== END 2021-08-24 16:55 | disposition home or self-care (01) | DRG 177 ==
LOC: ER 21:02 → MEDSURG 21:54
PROVIDERS: Physician Assistant; Admitting Provider Internal Medicine; Emergency Provider Family Medicine; PCP Family Medicine; Visit Provider Internal Medicine
DX: U07.1 COVID-19 (principal); J12.82 Pneumonia due to coronavirus disease 2019; J96.21 Acute and chronic respiratory failure with hypoxia; I26.99 Other pulmonary embolism without acute cor pulmonale; C91.10 Chronic lymphocytic leukemia of B-cell type not having achieved remission; D84.9 Immunodeficiency, unspecified; E11.65 Type 2 diabetes mellitus with hyperglycemia; T38.0X5A Adverse effect of glucocorticoids and synthetic analogues, initial encounter; I10 Essential (primary) hypertension; Z99.81 Dependence on supplemental oxygen
CPT/HCPCS: 36415; 36416; 36600; 71045; 71275; 80048; 80051; 80053; 80069; 80500; 82330; 82728; 82803; 82805; 82962; 83036; 83605; 83735; 83880; 84145; 85007; 85025; 85378; 85384; 85610; 85730; 86140; 88184; 88185; 88271; 88275; 93005; 93308; 93970; 94640; 94664; 96365; 96372; 96375; 99285; J1100; J1650; J1815; J1940; J2930; Q9967

== ENCOUNTER 2021-08-30 14:26 | Outpatient (CLI) | payer MEDICARE, SELFPAY ==
--- NOTE | 2021-09-03 11:22 | ONC FU_ITS ---
Dr. Oakley Patient Follow-Up Note Patient: Sera Ragsdale Unit #: [id number]: [id number] Dicatated By: Randall Oakley M.D.Date of Visit:Aug 30, 2021 Onc Med Follow-up/Prog Note Chief Complaint: Chronic lymphocytic leukemia. History of Present Illness: This is a 66 year-old woman with chronic leukocytic leukemia, Alvarado stage 0 at initial diagnosis in April 2019. She has been in good general health. In February 2019 she had been seen by Dr. Shell to establish primary care. Her initial evaluation included laboratory studies on 03/20/2019. CBC at that time showed normal hemoglobin at 13.2 g with hematocrit 39.5%. The white blood cell count was elevated at 23,100. The platelet count was normal at 313,000. The differential included 73% lymphocytes, 18% neutrophils, 6% monocytes, and 3% eosinophils. Comprehensive metabolic profile showed normal renal function with BUN 18 and creatinine 0.65 mg/dL. The liver enzymes were normal. Her repeat CBC on 04/10/2019 showed similar findings with hemoglobin 13.0 g, white blood cell count 25,000, and platelet count 312,000. The differential included 83% lymphocytes, 14% neutrophils, and 3% monocytes. I had seen her initially on 05/08/2019. 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 Mantle cell lymphoma was not entirely excluded, but not favored due to strong CD200 expression. She had subsequently returned for a CLL prognostic profile. Her chromosome analysis an abnormal karyotype which included a translocation between chromosomes 2 and 7 as well as a translocation between two chromosomes 14, observed and 16 out of 20 metaphases. The clinical significance of that finding was uncertain. 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 In addition, 66% of her lymphoid cells were noted to be CD19 positive. Of these, 15% showed positivity for ZAP70 and 5% showed positivity for CD38. Overall, the findings were felt to be consistent with an intermediate prognostic profile, and in the setting of early stage disease expectant management was recommended. Her other medical illnesses include hyperlipidemia and rosacea. She was diagnosed with mitral valve prolapse at age 24. She had an appendectomy in 1969. She underwent L4-L5 laminectomy in 1981 for an injury related blown disc . She had previous surgery on her left foot for an injury. She suffered bilateral ankle fractures in 2017, but did not require surgery. She is a nonsmoker. INTERIM HISTORY: As have her follow-up visit on 08/03/2021 her white blood cell count had increased only slightly, to 34,000 with hemoglobin 12 g and platelet count normal at 225,000. She appeared stable clinically, and she continued expectant management. On 08/15/2021 she was admitted to the hospital with acute hypoxic respiratory failure in association with COVID-19 virus pneumonia. She was very ill, requiring high flow oxygen, but she did not require mechanical ventilation. Her clinical course was complicated by pulmonary emboli, and during the hospitalization her white blood cell count increased significantly, to as high as 86,300. It was predominantly lymphocytosis, though her neutrophil count also was mildly elevated. Her hemoglobin decreased only slightly, to 11 g. Her platelet count also increased, maximum 657,000. A flow cytometry study was ordered, but that has not been resulted. She was discharged home on 08/24/2021 on anticoagulation with apixaban. She is seen for a follow-up visit. She continues to feel really tired following her recent illness, and her activity is very limited. She is able to ambulate with a walker. ECOG score is 3. Her appetite is still poor. She does not have fever or night sweats. She has had a little bit of epistaxis. She also complains of having sore throat. She still has shortness of breath and she sometimes has a little cough. She is on continuous oxygen. She does not complain of chest pain. She was having diarrhea, but that is better now. She has no other GI or complaints. She has some generalized joint pain, she is the same. Today her legs have been hurting, and that is something new. She still gets headaches. She has no focal neurologic symptoms. Medications: Albuterol Sulfate Aerosol Powder, Breath Activated Inhalation, Berberine Complex (500 mg) Capsule Oral daily, Cinnamon 1 Capsule (of 500 mg) Oral b.i.d., Eliquis (5 mg) Tablet Oral b.i.d., Multivitamins 1 Capsule Oral daily, Red Yeast Rice 2 Capsule (of 1200 mg) Oral daily, SM Vitamin C 1 Tablet Oral daily, Zinc 2 Tablet (of 50 mg) Lozenge Mouth/throat daily Allergies: Adhesives Vital Signs: Performed on Aug 30, 2021 15:18 Height - 64.00 in Weight - 142.6 lbs (LOW) BSA - 1.69 sq.m BMI - 24.48 Temperature - 98.8 F Pulse - 77 /min Respiration - 19 /min BP - 130/75 mm(hg) O2 Sat - 94 % (LOW) Pain - 5 Fatigue - 4 Physical Examination: Constitutional - She appears generally weak, Eyes - Sclerae nonicteric. Conjunctivae clear, ENMT - No lesions noted in the oral cavity, Hematologic/Lymphatic - There is no cervical, clavicular, or after lymphadenopathy noted, Respiratory - Lungs show bibasilar rales, Cardiovascular - Heart rhythm is regular. There is a II/ systolic murmur. There is no gallop or rub noted, Abdomen - Soft. Liver and spleen are not enlarged. There is no abdominal mass or ascites noted and there is no inguinal adenopathy, Extremities - No edema, Neurologic - No focal neurologic deficits noted. Problem List: 1. 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 2. Hyperlipidemia. 3. Rosacea. 4. She was diagnosed with mitral valve prolapse at age 24. 5. She had previous lumbar laminectomy for ruptured L4/L5 disc. 6. She suffered bilateral ankle fractures in 2017. Problems Addressed with this Encounter and Plan: Patient with mild lymphocytosis. 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 There were additional abnormalities noted on her cytogenetic study, but these were of uncertain clinical significance. Overall, the findings were felt to be consistent with intermediate prognostic features. By clinical evaluation, she appeared to have early stage disease ( Alvarado stage 0), and observation/expectant management was recommended. During initial follow-up her lymphocyte count had increased gradually and she developed mild cervical lymphadenopathy, consistent with stage I disease. Overall, though, she still had early stage disease with no indication for treatment, and she continued expectant management. On 08/15/2020 when she was admitted to the hospital with acute hypoxic respiratory failure in association with COVID-19 virus pneumonia. Her clinical course was complicated by pulmonary emboli. She was discharged home as of 08/24/2021. She still has very limited activity, but she is showing recovery. During the hospitalization there was a very significant increase in her lymphocyte count, I suspect that was just due to the acute illness, as her platelet count had also increased. A flow cytometry study was ordered, but it has not yet been resulted. For now she continues on anticoagulation with apixaban. Her management is otherwise symptomatic/supportive. I will recheck her CBC next week and, depending on the findings, I will then plan to see her for follow-up at a 4-week interval. Signed By: Randall Oakley M.D. <<Signature on File>>
== END 2021-08-30 14:27 | disposition home or self-care (01) ==
LOC: ONCMED 14:31
PROVIDERS: PCP Family Medicine; Visit Provider Internal Medicine Medical Oncology
DX: C94.80 Other specified leukemias not having achieved remission (principal); I26.99 Other pulmonary embolism without acute cor pulmonale; E78.5 Hyperlipidemia, unspecified; I34.1 Nonrheumatic mitral (valve) prolapse; L71.9 Rosacea, unspecified; Z79.899 Other long term (current) drug therapy; Z79.01 Long term (current) use of anticoagulants; Z86.16 Personal history of COVID-19
CPT/HCPCS: 99214

== ENCOUNTER 2021-09-06 06:39 | Outpatient (CLI) | payer MEDICARE, SELFPAY ==
[2021-09-06 13:07] LABS: Basophils # 0.1 10^3/uL (0.0-0.1); Basophils % 0.2 %; Eosinophils # 0.5 10^3/uL (0.0-0.8); Eosinophils % 0.9 %; Hematocrit 37.2 % (37.0-47.0); Hemoglobin 11.4 g/dL (11.5-15.3); Lymphocytes # 46.3 10^3/uL (0.8-4.8); Lymphocytes % 87.4 %; Mean Corpuscular HGB Conc 30.6 g/dL (30.0-36.0); Mean Corpuscular Volume 94.7 fl (81-99); Mean Platelet Volume 9.7 fL (7.4-10.4); Monocytes # 0.9 10^3/uL (0.2-0.9); Monocytes % 1.7 %; Neutrophils # 5.15 10^3/uL (1.8-7.7); Neutrophils % 9.6 %; Nucleated Red Blood Cells % 0 %; Platelet Count 244 10^3/cmm (130-400); Red Blood Count 3.93 10^6/uL (4.1-5.3); Red Cell Distribution Width 14.4 % (12.1-15.1)
[2021-09-06 13:24] LABS: Alanine Aminotransferase 9 U/L (0-33); Albumin Level 3.6 g/dL (3.5-5.2); Alkaline Phosphatase 90 IU/L (35-105); Anion Gap 15.4 (5-19); Aspartate Amino Transferase 13 U/L (0-32); Blood Urea Nitrogen 8 mg/dL (8-23); Calcium 8.5 mg/dL (8.5-10.5); Carbon Dioxide 24 mmol/L (22-29); Chloride 104 mmol/L (98-107); Globulin 2.4 g/dL (1.3-4.6); Glomerular Filtration Rate 158.7 mL/min (90-130); Glucose 99 mg/dL (65-115); Lactate Dehydrogenase 146 U/L (135-214); Osmolality Calculated 286 mOsm/kg (285-295); Potassium 4.4 mmol/L (3.5-5.1); Sodium 139 mmol/L (136-145); Total Bilirubin 0.2 mg/dL (0.15-1.2)
[2021-09-06 13:36] LABS: LAB Peripheral Smear Sent for Review
[2021-09-06 13:40] LABS: White Blood Count 52.9 10^3/uL (4.0-10.0)
[2021-09-06 13:42] LABS: Slide Review Slide Review Perform
== END 2021-09-06 06:40 | disposition home or self-care (01) ==
LOC: ONCMED 06:39
PROVIDERS: PCP Family Medicine; Visit Provider Internal Medicine Medical Oncology
DX: C91.10 Chronic lymphocytic leukemia of B-cell type not having achieved remission (principal); E78.5 Hyperlipidemia, unspecified; Z79.899 Other long term (current) drug therapy
CPT/HCPCS: 36415; 80053; 80500; 83615; 85025

== ENCOUNTER 2021-10-07 08:51 | Outpatient (CLI) | payer MEDICARE, SELFPAY ==
[2021-10-07 09:28] LABS: Basophils # 0.2 10^3/uL (0.0-0.1); Basophils % 0.4 %; Eosinophils # 0.3 10^3/uL (0.0-0.8); Eosinophils % 0.7 %; Hematocrit 37.1 % (37.0-47.0); Hemoglobin 11.6 g/dL (11.5-15.3); Lymphocytes # 29.7 10^3/uL (0.8-4.8); Lymphocytes % 83.3 %; Mean Corpuscular HGB Conc 31.3 g/dL (30.0-36.0); Mean Corpuscular Hemoglobin 29.5 pg (28.0-34.0); Mean Corpuscular Volume 94.4 fl (81-99); Mean Platelet Volume 10.5 fL (7.4-10.4); Monocytes % 2.7 %; Neutrophils # 4.52 10^3/uL (1.8-7.7); Neutrophils % 12.8 %; Nucleated Red Blood Cells % 0 %; Platelet Count 315 10^3/cmm (130-400); Red Blood Count 3.93 10^6/uL (4.1-5.3); Red Cell Distribution Width 15.2 % (12.1-15.1)
[2021-10-07 09:35] LABS: LAB Peripheral Smear Sent for Review
[2021-10-07 10:10] LABS: Slide Review Slide Review Perform; White Blood Count 35.7 10^3/uL (4.0-10.0)
--- NOTE | 2021-10-07 10:13 | CT_ITS ---
WS: [id number] CT CHEST ANGIOGRAPHY WITH REFORMATS HISTORY: LYMPHOCYTOSIS (SYMPTOMATIC)/CLL TECHNIQUE: Contiguous axial images are obtained through the chest during arterial injection of intrav enous contrast. Images are reconstructed to evaluate the pulmonary arteries. MIP imaging also reviewe d. All CT scans at [facility] use at least one of these dose optimization techniques: automat ed exposure control; mA and/or kV adjustment per patient size (includes targeted exams where dose is matched to clinical indication); or iterative reconstruction. CONTRAST: Omnipaque 350; 95 mL IV. DLP: 424.11 mGy.cm COMPARISON: 08/15/2021 Good opacification of the pulmonary arteries. There are no central filling defects. Opacification is good through the segmental and portions of the subsegmental branches. Normal size pulmonary artery. M ild atherosclerotic changes thoracic aorta. No aneurysm or dissection. Mild enlargement of the LEFT h eart chambers. No RIGHT heart strain or pericardial effusion. No filling defect in the atrial appenda ge. There is diffuse bilateral areas of groundglass attenuation in all lobes. Moderate to significant imp rovement as compared to 08/15/2021. Less areas of dense consolidation. Opacifications and groundglass with no pneumothorax. No pleural effusion. Bilateral hilar lymphadenopathy may be reactive. The lymph nodes have slightly increased in size sinc e the prior study. Largest lymph nodes measure 9 to 10 mm in the hilar regions bilaterally. Lymphoid tissue extends along the RIGHT lower lobe pulmonary artery. Additional bilateral axillary lymph nodes . These axillary lymph nodes are prominent in size and number but do maintain a fatty hilum. No adrenal mass. Low-attenuation mass just to the RIGHT of the falciform ligament is probably a very small hepatic cyst measuring 6.4 mm. No change since 08/09/2053. No adrenal mass. Visualized upper a bdominal structures are negative for acute process. Normal thoracic alignment. No osseous abnormality . CT/CT angio chest PE protcl [id number] IMPRESSION: 1. No pulmonary embolism. 2. Significant improvement of the bilateral, multilobar pulmonary opacificatio ns since 08/15/2021. There is still residual diffuse groundglass opacification. 3. Indeterminate hilar lymphadenopathy with the lymph nodes being increased in number measuring up to 10 mm. This may be reactive. Patient also has history o f CLL. 4. Numerous bilateral axillary lymph nodes. Lymph nodes do maintain a normal f atty harry but are mildly increased in size and number.
[2021-10-07 10:44] LABS: Alanine Aminotransferase 8 U/L (0-33); Albumin Level 4.6 g/dL (3.5-5.2); Alkaline Phosphatase 87 IU/L (35-105); Anion Gap 17.2 (5-19); Aspartate Amino Transferase 14 U/L (0-32); Blood Urea Nitrogen 10 mg/dL (8-23); Carbon Dioxide 26 mmol/L (22-29); Chloride 104 mmol/L (98-107); Globulin 1.9 g/dL (1.3-4.6); Glomerular Filtration Rate 122.7 mL/min (90-130); Glucose 106 mg/dL (65-115); Lactate Dehydrogenase 145 U/L (135-214); Osmolality Calculated 295 mOsm/kg (285-295); Potassium 4.2 mmol/L (3.5-5.1); Sodium 143 mmol/L (136-145); Total Bilirubin 0.4 mg/dL (0.15-1.2); Total Protein 6.5 g/dL (6.6-8.7)
[2021-10-07] MEDS: iohexol 350 mg/mL 100 mL Btl IV (10:53)
== END 2021-10-07 08:52 | disposition home or self-care (01) ==
PROVIDERS: PCP Family Medicine; Visit Provider Internal Medicine Medical Oncology
DX: C91.10 Chronic lymphocytic leukemia of B-cell type not having achieved remission (principal); D72.820 Lymphocytosis (symptomatic); E78.5 Hyperlipidemia, unspecified; Z79.899 Other long term (current) drug therapy
CPT/HCPCS: 36415; 71275; 80053; 83615; 85025; Q9967

== ENCOUNTER 2021-10-10 12:56 | Outpatient (CLI) | payer MEDICARE, SELFPAY ==
--- NOTE | 2021-10-13 08:04 | ONC FU_ITS ---
Dr. Oakley Patient Follow-Up Note Patient: Sera Ragsdale Unit #: [id number]: 1955 Dicatated By: Randall Oakley M.D.Date of Visit:Oct 10, 2021 Onc Med Follow-up/Prog Note Chief Complaint: Chronic lymphocytic leukemia. History of Present Illness: This is a 66 year-old woman with chronic leukocytic leukemia, Alvarado stage 0 at initial diagnosis in April 2019. She has been in good general health. In February 2019 she had been seen by Dr. Shell to establish primary care. Her initial evaluation included laboratory studies on 03/20/2019. CBC at that time showed normal hemoglobin at 13.2 g with hematocrit 39.5%. The white blood cell count was elevated at 23,100. The platelet count was normal at 313,000. The differential included 73% lymphocytes, 18% neutrophils, 6% monocytes, and 3% eosinophils. Comprehensive metabolic profile showed normal renal function with BUN 18 and creatinine 0.65 mg/dL. The liver enzymes were normal. Her repeat CBC on 04/10/2019 showed similar findings with hemoglobin 13.0 g, white blood cell count 25,000, and platelet count 312,000. The differential included 83% lymphocytes, 14% neutrophils, and 3% monocytes. I had seen her initially on 05/08/2019. 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 Mantle cell lymphoma was not entirely excluded, but not favored due to strong CD200 expression. She had subsequently returned for a CLL prognostic profile. Her chromosome analysis an abnormal karyotype which included a translocation between chromosomes 2 and 7 as well as a translocation between two chromosomes 14, observed and 16 out of 20 metaphases. The clinical significance of that finding was uncertain. 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 In addition, 66% of her lymphoid cells were noted to be CD19 positive. Of these, 15% showed positivity for ZAP70 and 5% showed positivity for CD38. Overall, the findings were felt to be consistent with an intermediate prognostic profile, and in the setting of early stage disease expectant management was recommended. Her other medical illnesses include hyperlipidemia and rosacea. She was diagnosed with mitral valve prolapse at age 24. She had an appendectomy in 1969. She underwent L4-L5 laminectomy in 1981 for an injury related blown disc . She had previous surgery on her left foot for an injury. She suffered bilateral ankle fractures in 2017, but did not require surgery. She is a nonsmoker. INTERIM HISTORY: As have her follow-up visit on 08/03/2021 her white blood cell count had increased only slightly, to 34,000 with hemoglobin 12 g and platelet count normal at 225,000. She appeared stable clinically, and she continued expectant management. On 08/15/2021 she was admitted to the hospital with acute hypoxic respiratory failure in association with COVID-19 virus pneumonia. She was very ill, requiring high flow oxygen, but she did not require mechanical ventilation. Her clinical course was complicated by pulmonary emboli, and during the hospitalization her white blood cell count increased significantly, to as high as 86,300. It was predominantly lymphocytosis, though her neutrophil count also was mildly elevated. Her hemoglobin decreased only slightly, to 11 g. Her platelet count also increased, maximum 657,000. A flow cytometry study was ordered, but that has not been resulted. She was discharged home on 08/24/2021 on anticoagulation with apixaban. As have her follow-up visit on 08/30/2021 she was still very weak, but she was improving clinically. She is seen for a follow-up visit. She has feeling better generally, though she still gets tired by 3 or 4 in the afternoon, and she does get out of breath with activity. She is just using her oxygen at night now. Her ECOG score is 1. Appetite has been okay. She has not had fever. She does have some sweating, though. She complains that she has to blow her nose all the time. She has not had sore mouth or throat. She does not have resting dyspnea, cough, or chest pain. She developed abdominal pain, nausea/vomiting, and diarrhea on Sunday, but the illness lasted only 1 day. She has had no other GI or complaints. She has some arthritis pain, mainly in her hands. She is not having as much headache now. She has no focal neurologic symptoms. Medications: Albuterol Sulfate Aerosol Powder, Breath Activated Inhalation, Berberine Complex (500 mg) Capsule Oral daily, Cinnamon 1 Capsule (of 500 mg) Oral b.i.d., Eliquis (5 mg) Tablet Oral b.i.d., Multivitamins 1 Capsule Oral daily, Red Yeast Rice 2 Capsule (of 1200 mg) Oral daily, SM Vitamin C 1 Tablet Oral daily, Zinc 2 Tablet (of 50 mg) Lozenge Mouth/throat daily Allergies: Adhesives Vital Signs: Performed on Oct 10, 2021 13:18 Height - 64.00 in Weight - 142.0 lbs (LOW) BSA - 1.69 sq.m BMI - 24.37 Temperature - 97.5 F (LOW) Pulse - 78 /min Respiration - 16 /min BP - 120/66 mm(hg) O2 Sat - 96 % Pain - 0 Fatigue - 3 Physical Examination: Constitutional - She looks better generally, Eyes - Sclerae nonicteric. Conjunctivae clear, ENMT - No lesions noted in the oral cavity, Hematologic/Lymphatic - There are tiny cervical nodes palpable on the left side. There is no other adenopathy in the neck or axilla, Respiratory - Lungs sound clear, Cardiovascular - Heart rhythm is regular. There is a II/ systolic murmur. There is no gallop or rub noted, Abdomen - Soft. Liver and spleen are not enlarged. There is no abdominal mass or ascites noted and there is no inguinal adenopathy, Extremities - No edema, Integumentary - There is some mild skin eruption in the malar area, Neurologic - No focal neurologic deficits noted. Lab/Imaging: CBC shows hemoglobin 11.6 g, white blood cell count 35,700, and platelet count 315,000. Comprehensive metabolic profile is unremarkable. LDH is normal at 145 U/L. Problem List: 1. 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 2. Hyperlipidemia. 3. Rosacea. 4. She was diagnosed with mitral valve prolapse at age 24. 5. She had previous lumbar laminectomy for ruptured L4/L5 disc. 6. She suffered bilateral ankle fractures in 2017. Problems Addressed with this Encounter and Plan: Patient with mild lymphocytosis. 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 There were additional abnormalities noted on her cytogenetic study, but these were of uncertain clinical significance. Overall, the findings were felt to be consistent with intermediate prognostic features. By clinical evaluation, she appeared to have early stage disease ( Alvarado stage 0), and observation/expectant management was recommended. During initial follow-up her lymphocyte count had increased gradually and she developed mild cervical lymphadenopathy, consistent with stage I disease. Overall, though, she still had early stage disease with no indication for treatment, and she continued expectant management. On 08/15/2021 she was admitted to the hospital with acute hypoxic respiratory failure in association with COVID-19 virus pneumonia. Her clinical course was complicated by pulmonary emboli. She was discharged home as of 08/24/2021. During the hospitalization there was a very significant increase in her lymphocyte count, but it appeared to be due to the acute illness. During follow-up she has continued to show recovery, and there has been a gradual decline in her lymphocyte count, which is now back down to baseline. As such, she remains on expectant management for the chronic lymphocytic leukemia. I will see her again in 3 months. Signed By: Randall Oakley M.D. <<Signature on File>>
== END 2021-10-10 12:57 | disposition home or self-care (01) ==
PROVIDERS: PCP Family Medicine; Visit Provider Internal Medicine Medical Oncology
DX: C91.10 Chronic lymphocytic leukemia of B-cell type not having achieved remission (principal); E78.5 Hyperlipidemia, unspecified; Z86.16 Personal history of COVID-19; Z86.711 Personal history of pulmonary embolism; Z79.01 Long term (current) use of anticoagulants; Z79.899 Other long term (current) drug therapy
CPT/HCPCS: 99214

== ENCOUNTER 2022-03-10 10:14 | Oncology outpatient (recurring) (ONCR) | payer MEDICARE, SELFPAY ==
[2022-03-08 09:03] LABS: Basophils # 0.1 10^3/uL (0.0-0.1); Basophils % 0.4 %; Eosinophils # 0.3 10^3/uL (0.0-0.8); Eosinophils % 0.9 %; Hemoglobin 12.3 g/dL (11.5-15.3); Lymphocytes # 24.6 10^3/uL (0.8-4.8); Mean Corpuscular HGB Conc 32.4 g/dL (30.0-36.0); Mean Corpuscular Hemoglobin 30.3 pg (28.0-34.0); Mean Corpuscular Volume 93.6 fl (81-99); Mean Platelet Volume 10.5 fL (7.4-10.4); Monocytes # 0.8 10^3/uL (0.2-0.9); Monocytes % 2.7 %; Neutrophils # 4.11 10^3/uL (1.8-7.7); Neutrophils % 13.8 %; Nucleated Red Blood Cells % 0 %; Platelet Count 262 10^3/cmm (130-400); Red Blood Count 4.06 10^6/uL (4.1-5.3); Red Cell Distribution Width 14.3 % (12.1-15.1)
[2022-03-08 09:42] LABS: Slide Review Slide Review Perform
[2022-03-08 10:04] LABS: Alanine Aminotransferase 13 U/L (0-33); Albumin Level 4.8 g/dL (3.5-5.2); Alkaline Phosphatase 103 IU/L (35-105); Anion Gap 14.5 (5-19); Aspartate Amino Transferase 19 U/L (0-32); Blood Urea Nitrogen 8 mg/dL (8-23); Calcium 9.6 mg/dL (8.5-10.5); Carbon Dioxide 27 mmol/L (22-29); Chloride 101 mmol/L (98-107); Globulin 1.7 g/dL (1.3-4.6); Glomerular Filtration Rate 122.7 mL/min (90-130); Glucose 93 mg/dL (65-115); Lactate Dehydrogenase 163 U/L (135-214); Osmolality Calculated 284 mOsm/kg (285-295); Potassium 4.5 mmol/L (3.5-5.1); Sodium 138 mmol/L (136-145); Total Bilirubin 0.4 mg/dL (0.15-1.2); Total Protein 6.5 g/dL (6.6-8.7)
== END 2022-03-19 23:59 | disposition home or self-care (01) ==
PROVIDERS: PCP Family Medicine; Visit Provider Internal Medicine Medical Oncology
DX: Z08 Encounter for follow-up examination after completed treatment for malignant neoplasm (principal); Z85.6 Personal history of leukemia; Z86.16 Personal history of COVID-19; I26.99 Other pulmonary embolism without acute cor pulmonale; Z79.01 Long term (current) use of anticoagulants; Z79.899 Other long term (current) drug therapy
CPT/HCPCS: 80053; 83615; 85025; 99214

== ENCOUNTER 2022-06-12 13:44 | Oncology outpatient (recurring) (ONCR) | payer MEDICARE, SELFPAY ==
[2022-06-12 14:15] LABS: Basophils # 0.1 10^3/uL (0.0-0.1); Basophils % 0.2 %; Eosinophils # 0.3 10^3/uL (0.0-0.8); Eosinophils % 0.7 %; Hematocrit 38.3 % (37.0-47.0); Hemoglobin 12.1 g/dL (11.5-15.3); Lymphocytes # 32.1 10^3/uL (0.8-4.8); Lymphocytes % 79.1 %; Mean Corpuscular HGB Conc 31.6 g/dL (30.0-36.0); Mean Corpuscular Volume 94.8 fl (81-99); Mean Platelet Volume 10.7 fL (7.4-10.4); Monocytes # 2.3 10^3/uL (0.2-0.9); Monocytes % 5.7 %; Neutrophils # 5.66 10^3/uL (1.8-7.7); Nucleated Red Blood Cells % 0 %; Platelet Count 223 10^3/cmm (130-400); Red Blood Count 4.04 10^6/uL (4.1-5.3); Red Cell Distribution Width 13.9 % (12.1-15.1)
[2022-06-12 14:25] LABS: Slide Review Slide Review Perform; White Blood Count 40.5 10^3/uL (4.0-10.0)
[2022-06-12 14:36] LABS: Alanine Aminotransferase 11 U/L (0-33); Albumin Level 4.3 g/dL (3.5-5.2); Alkaline Phosphatase 105 U/L (35-105); Anion Gap 12.1 (5-19); Aspartate Amino Transferase 18 U/L (0-32); Blood Urea Nitrogen 10 mg/dL (8-23); Calcium 9.8 mg/dL (8.5-10.5); Carbon Dioxide 26 mmol/L (22-29); Chloride 102 mmol/L (98-107); Globulin 2.4 g/dL (1.3-4.6); Glomerular Filtration Rate 83.2 mL/min (90-130); Glucose 95 mg/dL (65-115); Lactate Dehydrogenase 152 U/L (135-214); Osmolality Calculated 281 mOsm/kg (285-295); Potassium 4.1 mmol/L (3.5-5.1); Sodium 136 mmol/L (136-145); Total Bilirubin 0.4 mg/dL (0.15-1.2); Total Protein 6.7 g/dL (6.6-8.7)
== END 2022-06-19 23:59 | disposition home or self-care (01) ==
PROVIDERS: Nurse Practitioner Family; PCP Family Medicine; Visit Provider Internal Medicine Medical Oncology
DX: C91.10 Chronic lymphocytic leukemia of B-cell type not having achieved remission (principal); I26.99 Other pulmonary embolism without acute cor pulmonale; Z79.01 Long term (current) use of anticoagulants; Z86.16 Personal history of COVID-19; Z86.718 Personal history of other venous thrombosis and embolism
CPT/HCPCS: 80053; 83615; 85025; 99214

== ENCOUNTER 2022-06-19 13:01 | Outpatient (CLI) | payer MEDICARE, SELFPAY ==
--- NOTE | 2022-06-19 13:10 | MM_ITS ---
WS: [id number] BILATERAL 3D TOMOSYNTHESIS DIGITAL SCREENING MAMMOGRAPHY WITH CAD CLINICAL INFORMATION: SCREENING HISTORY: Screening mammogram. No current complaints. COMPARISON: June 09, 2021 TECHNIQUE: Bilateral CC and MLO views. FINDINGS: Scattered fibroglandular densities bilaterally. No suspicious focal mass, asymmetry, calcifications, or architectural distortion. No evidence of malignancy. MM/[place] [id number] IMPRESSION: BI-RADS: 1-Negative FOLLOW UP: 1 Year Follow-up Recommend return to annual screening mammography.
== END 2022-06-19 13:02 | disposition home or self-care (01) ==
LOC: RAD 13:02
PROVIDERS: PCP Family Medicine; Visit Provider Family Medicine
DX: Z12.31 Encounter for screening mammogram for malignant neoplasm of breast (principal)
CPT/HCPCS: 77063; 77067

== ENCOUNTER 2022-12-13 12:27 | Oncology outpatient (recurring) (ONCR) | payer MEDICARE, SELFPAY ==
[2022-12-13 13:06] LABS: Basophils # 0.2 10^3/uL (0.0-0.1); Basophils % 0.4 %; Eosinophils # 0.2 10^3/uL (0.0-0.8); Eosinophils % 0.5 %; Hematocrit 37.2 % (37.0-47.0); Lymphocytes # 38.1 10^3/uL (0.8-4.8); Lymphocytes % 82.3 %; Mean Corpuscular HGB Conc 32.3 g/dL (30.0-36.0); Mean Corpuscular Hemoglobin 30.4 pg (28.0-34.0); Mean Corpuscular Volume 94.2 fl (81-99); Mean Platelet Volume 10.4 fL (7.4-10.4); Monocytes # 2.7 10^3/uL (0.2-0.9); Monocytes % 5.8 %; Neutrophils % 10.8 %; Nucleated Red Blood Cells % 0 %; Platelet Count 233 10^3/cmm (130-400); Red Blood Count 3.95 10^6/uL (4.1-5.3); Red Cell Distribution Width 14.6 % (12.1-15.1)
[2022-12-13 13:52] LABS: Alanine Aminotransferase 14 U/L (0-33); Albumin Level 4.5 g/dL (3.5-5.2); Alkaline Phosphatase 99 U/L (35-105); Aspartate Amino Transferase 20 U/L (0-32); Blood Urea Nitrogen 11 mg/dL (8-23); Calcium 9.1 mg/dL (8.5-10.5); Carbon Dioxide 25 mmol/L (22-29); Chloride 102 mmol/L (98-107); Globulin 1.7 g/dL (1.3-4.6); Glomerular Filtration Rate 122.3 mL/min (90-130); Glucose 89 mg/dL (65-115); Lactate Dehydrogenase 156 U/L (135-214); Osmolality Calculated 283 mOsm/kg (285-295); Sodium 137 mmol/L (136-145); Total Bilirubin 0.4 mg/dL (0.15-1.2); Total Protein 6.2 g/dL (6.6-8.7)
[2022-12-13 14:04] LABS: White Blood Count 46.3 10^3/uL (4.0-10.0)
[2022-12-13 14:05] LABS: Slide Review Slide Review Perform
== END 2022-12-17 23:59 | disposition home or self-care (01) ==
PROVIDERS: PCP Family Medicine; Visit Provider Internal Medicine Medical Oncology
DX: Z08 Encounter for follow-up examination after completed treatment for malignant neoplasm; Z85.72 Personal history of non-Hodgkin lymphomas; Z86.16 Personal history of COVID-19; D72.819 Decreased white blood cell count, unspecified
CPT/HCPCS: 36415; 80053; 83615; 85025; 99213

== ENCOUNTER → 2022-12-20 08:14 | Outpatient (BNVA) | payer MEDICARE, SELFPAY | PROVIDERS: PCP Family Medicine; Visit Provider Clinical Nurse Specialist Adult Health | DX: J06.9 Acute upper respiratory infection, unspecified (principal) | CPT/HCPCS: 87400; 87426 ==

== ENCOUNTER 2023-06-13 09:06 | Oncology outpatient (recurring) (ONCR) | payer MEDICARE, SELFPAY ==
[2023-06-13 09:07] VITALS: BP 121/69; PULSE 73; RESP 16; TEMP 36.2; O2SAT 99
[2023-06-13 09:23] LABS: Basophils # 0.1 10^3/uL (0.0-0.1); Basophils % 0.1 %; Eosinophils # 0.2 10^3/uL (0.0-0.8); Eosinophils % 0.3 %; Hematocrit 38.5 % (36-47); Lymphocytes # 68.2 10^3/uL (0.8-4.8); Lymphocytes % 90.8 %; Mean Corpuscular HGB Conc 31.4 g/dL (30-55); Mean Corpuscular Hemoglobin 29.9 pg (27-33); Mean Corpuscular Volume 95.1 fl (85-98); Mean Platelet Volume 10.6 fL (7.4-10.4); Monocytes # 1.6 10^3/uL (0.2-0.9); Monocytes % 2.1 %; Neutrophils # 4.79 10^3/uL (1.8-7.7); Neutrophils % 6.5 %; Nucleated Red Blood Cells % 0 %; Platelet Count 225 10^3/cmm (157-399); Red Blood Count 4.05 10^6/uL (3.85-5.65); Red Cell Distribution Width 14.8 % (12.1-15.1)
[2023-06-13 09:40] LABS: Alanine Aminotransferase 12 U/L (0-33); Albumin Level 4.8 g/dL (3.5-5.2); Alkaline Phosphatase 113 U/L (35-105); Anion Gap 12.5 (5-19); Aspartate Amino Transferase 20 U/L (0-32); Blood Urea Nitrogen 6 mg/dL (8-23); Calcium 9.8 mg/dL (8.5-10.5); Carbon Dioxide 27 mmol/L (22-29); Chloride 107 mmol/L (98-107); Creatinine Clr Calc Pharmacy 62.9019; Globulin 1.6 g/dL (1.3-4.6); Glomerular Filtration Rate 122.3 mL/min (90-130); Glucose 102 mg/dL (65-115); Lactate Dehydrogenase 157 U/L (135-214); Osmolality Calculated 292 mOsm/kg (285-295); Potassium 4.5 mmol/L (3.5-5.1); Sodium 142 mmol/L (136-145); Total Bilirubin 0.5 mg/dL (0.15-1.2); Total Protein 6.4 g/dL (6.6-8.7)
[2023-06-13 10:23] LABS: Slide Review Slide Review Perform
== END 2023-06-19 23:59 | disposition home or self-care (01) ==
PROVIDERS: PCP Family Medicine; Visit Provider Internal Medicine Medical Oncology
DX: C91.10 Chronic lymphocytic leukemia of B-cell type not having achieved remission (principal); Z79.899 Other long term (current) drug therapy
CPT/HCPCS: 36415; 80053; 83615; 85025; 99213

== ENCOUNTER 2023-06-26 10:16 | Outpatient (CLI) | payer MEDICARE, SELFPAY ==
--- NOTE | 2023-06-26 10:42 | MM_ITS ---
WS: [id number] Bilateral screening 3D tomosynthesis digital mammogram, 06/26/2023 Clinical Data: screening Comparison: 06/19/2022, 06/09/2021, 04/08/2019. Findings: The breast parenchymal pattern shows fat replacement. No spiculated masses or clustered calcification s are seen. There are no secondary signs of carcinoma. There are lymph nodes in both axilla. Impression: 1. Negative bilateral mammogram unchanged. 2. Recommend annual screening mammograms. MM/[place] [id number] BIRADS: 1-Negative FOLLOW UP: 1 Year Follow-up The CAD engineering drawings checker was used.
== END 2023-06-26 10:17 | disposition home or self-care (01) ==
LOC: RAD 10:16
PROVIDERS: PCP Family Medicine; Visit Provider Family Medicine
DX: Z12.31 Encounter for screening mammogram for malignant neoplasm of breast (principal)
CPT/HCPCS: 77063; 77067

== ENCOUNTER 2023-08-01 11:27 | Oncology outpatient (recurring) (ONCR) | payer MEDICARE, SELFPAY ==
[2023-08-01 11:50] VITALS: BP 126/69; PULSE 69; RESP 16; TEMP 36.4; O2SAT 98
[2023-08-01 12:08] LABS: Basophils # 0.2 10^3/uL (0.0-0.1); Basophils % 0.4 %; Eosinophils # 0.2 10^3/uL (0.0-0.8); Eosinophils % 0.3 %; Lymphocytes # 53.2 10^3/uL (0.8-4.8); Lymphocytes % 88.8 %; Mean Corpuscular HGB Conc 31.4 g/dL (30-55); Mean Corpuscular Volume 95.6 fl (85-98); Mean Platelet Volume 10.4 fL (7.4-10.4); Monocytes # 1.7 10^3/uL (0.2-0.9); Monocytes % 2.9 %; Neutrophils # 4.43 10^3/uL (1.8-7.7); Neutrophils % 7.5 %; Nucleated Red Blood Cells % 0 %; Platelet Count 198 10^3/cmm (157-399); Red Blood Count 3.87 10^6/uL (3.85-5.65); Red Cell Distribution Width 14.9 % (12.1-15.1)
[2023-08-01 12:24] LABS: Alanine Aminotransferase 14 U/L (0-33); Albumin Level 4.5 g/dL (3.5-5.2); Alkaline Phosphatase 105 U/L (35-105); Anion Gap 15.6 (5-19); Aspartate Amino Transferase 20 U/L (0-32); Blood Urea Nitrogen 9 mg/dL (8-23); Calcium 9.5 mg/dL (8.5-10.5); Carbon Dioxide 25 mmol/L (22-29); Chloride 104 mmol/L (98-107); Globulin 1.8 g/dL (1.3-4.6); Glomerular Filtration Rate 99.1 mL/min (90-130); Glucose 93 mg/dL (65-115); Lactate Dehydrogenase 172 U/L (135-214); Osmolality Calculated 288 mOsm/kg (285-295); Potassium 4.6 mmol/L (3.5-5.1); Sodium 140 mmol/L (136-145); Total Bilirubin 0.4 mg/dL (0.15-1.2); Total Protein 6.3 g/dL (6.6-8.7)
[2023-08-01 12:57] LABS: White Blood Count 59.84 10^3/uL (3.29-11.43)
[2023-08-01 13:00] LABS: Slide Review Slide Review Perform
== END 2023-08-19 23:59 | disposition home or self-care (01) ==
PROVIDERS: Nurse Practitioner Family; PCP Family Medicine; Visit Provider Internal Medicine Medical Oncology
DX: C91.10 Chronic lymphocytic leukemia of B-cell type not having achieved remission (principal); Z79.899 Other long term (current) drug therapy
CPT/HCPCS: 36415; 80053; 83615; 85025; 99213

== ENCOUNTER → 2023-10-30 08:15 | Outpatient (BNVA) | payer MEDICARE, SELFPAY | PROVIDERS: PCP Family Medicine; Visit Provider Clinical Nurse Specialist Adult Health | DX: J06.9 Acute upper respiratory infection, unspecified (principal); J10.1 Influenza due to other identified influenza virus with other respiratory manifestations | CPT/HCPCS: 87400; 87426 ==

== ENCOUNTER 2024-01-29 13:53 | Oncology outpatient (recurring) (ONCR) | payer MEDICARE, SELFPAY ==
[2024-01-29 14:31] LABS: Mean Corpuscular HGB Conc 31.9 g/dL (30-55); Mean Corpuscular Hemoglobin 30.6 pg (27-33); Mean Corpuscular Volume 95.7 fl (85-98); Mean Platelet Volume 9.9 fL (7.4-10.4); Platelet Count 181 10^3/cmm (157-399); Red Blood Count 3.76 10^6/uL (3.85-5.65); Red Cell Distribution Width 14.8 % (12.1-15.1)
[2024-01-29 14:48] LABS: Alanine Aminotransferase 10 U/L (0-33); Albumin Level 4.3 g/dL (3.5-5.2); Alkaline Phosphatase 109 U/L (35-105); Anion Gap 15.7 (5-19); Aspartate Amino Transferase 18 U/L (0-32); Blood Urea Nitrogen 10 mg/dL (8-23); Calcium 9.4 mg/dL (8.5-10.5); Carbon Dioxide 26 mmol/L (22-29); Chloride 102 mmol/L (98-107); Globulin 1.9 g/dL (1.3-4.6); Glomerular Filtration Rate 98.8 mL/min (90-130); Glucose 86 mg/dL (65-115); Lactate Dehydrogenase 188 U/L (135-214); Osmolality Calculated 286 mOsm/kg (285-295); Potassium 4.7 mmol/L (3.5-5.1); Sodium 139 mmol/L (136-145); Total Bilirubin 0.5 mg/dL (0.15-1.2); Total Protein 6.2 g/dL (6.6-8.7)
[2024-01-29 15:02] LABS: Slide Review Slide Review Perform; Total Cells Counted 100 (0-100)
[2024-01-29 15:03] LABS: Absolute Neutrophil 4.4 10^3/cmm (1.4-6.5); Absolute Segmented Neutrophil 4.4 10/cmm (1.6-7.1); Eosinophils 0 %; Lymphocytes 23 %; Lymphocytes Absolute 54.4 10^3/cmm (1.2-3.4); Platelet Estimate Decreased (Normal); Segmented Neutrophils 7 %; White Blood Count 62.48 10^3/uL (3.29-11.43)
== END 2024-02-17 23:59 | disposition home or self-care (01) ==
PROVIDERS: PCP Family Medicine; Visit Provider Internal Medicine Medical Oncology
DX: C91.10 Chronic lymphocytic leukemia of B-cell type not having achieved remission (principal); Z79.899 Other long term (current) drug therapy
CPT/HCPCS: 36415; 80053; 83615; 85007; 85025; 99213

== ENCOUNTER 2024-08-01 08:10 | Oncology outpatient (recurring) (ONCR) | payer MEDICARE, SELFPAY ==
[2024-08-01 08:51] LABS: Basophils # 0.1 10^3/uL (0.0-0.1); Basophils % 0.1 %; Eosinophils # 0.2 10^3/uL (0.0-0.8); Eosinophils % 0.3 %; Hematocrit 34.9 % (36-47); Lymphocytes # 67.2 10^3/uL (0.8-4.8); Lymphocytes % 90.8 %; Mean Corpuscular HGB Conc 30.9 g/dL (30-55); Mean Corpuscular Volume 96.9 fl (85-98); Mean Platelet Volume 10.1 fL (7.4-10.4); Monocytes # 1.9 10^3/uL (0.2-0.9); Monocytes % 2.6 %; Nucleated Red Blood Cells % 0 %; Platelet Count 250 10^3/cmm (157-399); Red Cell Distribution Width 15.2 % (12.1-15.1)
[2024-08-01 09:03] LABS: Slide Review Slide Review Perform
[2024-08-01 09:05] LABS: White Blood Count 73.96 10^3/uL (3.29-11.43)
[2024-08-01 09:07] LABS: Alanine Aminotransferase 13 U/L (0-33); Albumin Level 4.4 g/dL (3.5-5.2); Alkaline Phosphatase 93 U/L (35-105); Anion Gap 13.4 (5-19); Aspartate Amino Transferase 18 U/L (0-32); Blood Urea Nitrogen 7 mg/dL (8-23); Calcium 9.5 mg/dL (8.5-10.5); Carbon Dioxide 27 mmol/L (22-29); Chloride 102 mmol/L (98-107); Creatinine Clr Calc Pharmacy 57.9666; Globulin 1.8 g/dL (1.3-4.6); Glucose 90 mg/dL (65-115); Lactate Dehydrogenase 156 U/L (135-214); Osmolality Calculated 284 mOsm/kg (285-295); Potassium 4.4 mmol/L (3.5-5.1); Sodium 138 mmol/L (136-145); Total Bilirubin 0.3 mg/dL (0.15-1.2); Total Protein 6.2 g/dL (6.6-8.7)
[2024-08-01 10:07] LABS: Ferritin 236 ng/mL (15-150); Iron 66 ug/dL (37-145); Percent Saturation 22.6 % (20-50); Total Iron Binding Capacity 292 mcg/dl; Unsaturated Iron Binding 226 ug/dL (112-347)
[2024-08-01 10:26] LABS: Vitamin B12 > 2000 pg/mL (232-1245)
== END 2024-08-19 23:59 | disposition home or self-care (01) ==
PROVIDERS: Nurse Practitioner Family; PCP Family Medicine; Visit Provider Internal Medicine Medical Oncology
DX: C91.10 Chronic lymphocytic leukemia of B-cell type not having achieved remission (principal); Z79.899 Other long term (current) drug therapy; D64.9 Anemia, unspecified
CPT/HCPCS: 36415; 80053; 82607; 82728; 83540; 83550; 83615; 85025; 99213

== ENCOUNTER 2024-08-08 12:30 | Outpatient (CLI) | payer MEDICARE, SELFPAY ==
--- NOTE | 2024-08-08 12:33 | MM_ITS ---
WS: [id number] BILATERAL 3D TOMOSYNTHESIS DIGITAL SCREENING MAMMOGRAPHY WITH CAD CLINICAL INFORMATION: SCREENING HISTORY: Screening mammogram. No current complaints. COMPARISON: 2022 TECHNIQUE: Bilateral CC and MLO views. FINDINGS: Scattered fibroglandular densities bilaterally. No suspicious focal mass, asymmetry, calcifications, or architectural distortion. No evidence of malignancy. Incidental lymph node along the LEFT axillary tail MM/MM scr BI tomosynthesis [id number] IMPRESSION: DENSITY: There are scattered areas of fibroglandular density. BI-RADS: 2 - Benign. FOLLOW UP: 1 Year Follow-up Recommend return to annual screening mammography.
--- NOTE | 2024-08-08 12:39 | XR_ITS ---
WS: [id number] SCREENING DEXA SCAN [employer] CLINICAL INFORMATION: SCREENING FINDINGS: The L1-L4 bone mineral density measures 0.894 g/cm2. This corresponds to a T score score of -2.4 and Z score of -0.6. Left femoral neck bone mineral density measures 0.776 g/cm2. This corresponds to a T score of -1.8 an d Z score of -0.2. Right femoral neck bone mineral density measures 0.693 g/cm2. This corresponds to a T score -2.5of an d Z score of -0.9. Mean femoral neck bone mineral density measures 0.735 g/cm2. This corresponds to a T score of -2.2 an d Z score of -0.6. XR/XR DEXA axial skeleton* [id number] IMPRESSION: Osteopenia lumbar spine and femoral necks approaching osteoporosis. Patient's FRAX calculated 10 year probability for major osteoporotic fracture i s 20.5% and osteoporotic hip fracture is 4.7%.
== END 2024-08-08 12:31 | disposition home or self-care (01) ==
LOC: RAD 12:31
PROVIDERS: PCP Family Medicine; Visit Provider Family Medicine
DX: Z12.31 Encounter for screening mammogram for malignant neoplasm of breast (principal); R92.323 Mammographic fibroglandular density, bilateral breasts; Z13.820 Encounter for screening for osteoporosis; M85.80 Other specified disorders of bone density and structure, unspecified site; Z78.0 Asymptomatic menopausal state
CPT/HCPCS: 77063; 77067; 77080

== ENCOUNTER 2024-09-22 13:54 | Outpatient (CLI) | payer MEDICARE, SELFPAY ==
--- NOTE | 2024-09-22 14:05 | XRR_ITS ---
PROCEDURE INFORMATION: Exam: XR Left Ankle Exam date and time: 09/22/2024 2:10 PM Age: 69 years old Clinical indication: Injury or trauma; Sprain or strain; Left; Injury date: 1 week ago; Injury details: Fall and twist of ankle x1 week, previous trauma to ankle; Additional info: Foot pain TECHNIQUE: Imaging protocol: Radiologic exam of the left ankle. Views: 1 or 2 views. COMPARISON: CR XR foot LT 2V [id number] 09/22/2024 2:10 PM FINDINGS: Bones/joints: Osseous structures are intact. No fracture or malalignment. Visualized joint surfaces are preserved. Small calcaneal spur is noted. Soft tissues: Unremarkable. XR/XR ankle LT 2V [id number] IMPRESSION: Negative exam. No acute bony abnormalities.
--- NOTE | 2024-09-22 14:05 | XRR_ITS ---
PROCEDURE INFORMATION: Exam: XR Left Foot Exam date and time: 09/22/2024 2:10 PM Age: 69 years old Clinical indication: Injury or trauma; Sprain or strain; Foot; Left; Injury date: 1 week ago; Injury details: Fall and twist of ankle x1 week, previous trauma to ankle; Additional info: Foot pain TECHNIQUE: Imaging protocol: Radiologic exam of the left foot. Views: 1 or 2 views. COMPARISON: CR XR ankle LT 2V [id number] 09/22/2024 2:10 PM FINDINGS: Bones/joints: Normal. No fracture, dislocation or malalignment. Joint surfaces are perserved. Soft tissues: Normal. XR/XR foot LT 2V [id number] IMPRESSION: Negative exam, No acute bony abnormalities.
== END 2024-09-22 13:55 | disposition home or self-care (01) ==
PROVIDERS: PCP Family Medicine; Visit Provider Family Medicine
DX: M79.672 Pain in left foot (principal); W19.XXXA Unspecified fall, initial encounter; M77.32 Calcaneal spur, left foot
CPT/HCPCS: 73600; 73620

== ENCOUNTER 2024-10-01 09:30 | Oncology outpatient (recurring) (ONCR) | payer MEDICARE, SELFPAY ==
[2024-10-01 10:06] LABS: Reticulocyte % 1.1 % (0.5-2.0)
[2024-10-01 10:08] LABS: Basophils # 0.2 10^3/uL (0.0-0.1); Basophils % 0.2 %; Eosinophils # 0.3 10^3/uL (0.0-0.8); Eosinophils % 0.5 %; Hematocrit 36.6 % (36-47); Lymphocytes # 59.7 10^3/uL (0.8-4.8); Lymphocytes % 88.2 %; Mean Corpuscular HGB Conc 30.9 g/dL (30-55); Mean Corpuscular Hemoglobin 29.6 pg (27-33); Mean Corpuscular Volume 95.8 fl (85-98); Mean Platelet Volume 10.3 fL (7.4-10.4); Neutrophils # 5.34 10^3/uL (1.8-7.7); Neutrophils % 7.9 %; Nucleated Red Blood Cells % 0 %; Platelet Count 174 10^3/cmm (157-399); Red Blood Count 3.82 10^6/uL (3.85-5.65)
[2024-10-01 10:27] LABS: Alanine Aminotransferase 11 U/L (0-33); Albumin Level 4.3 g/dL (3.5-5.2); Alkaline Phosphatase 144 U/L (35-105); Aspartate Amino Transferase 18 U/L (0-32); Blood Urea Nitrogen 15 mg/dL (8-23); Calcium 9.6 mg/dL (8.5-10.5); Carbon Dioxide 27 mmol/L (22-29); Chloride 103 mmol/L (98-107); Creatinine Clr Calc Pharmacy 62.0199; Ferritin 179 ng/mL (15-150); Globulin 1.9 g/dL (1.3-4.6); Glucose 94 mg/dL (65-115); Iron 79 ug/dL (37-145); Lactate Dehydrogenase 151 U/L (135-214); Osmolality Calculated 291 mOsm/kg (285-295); Percent Saturation 25.1 % (20-50); Sodium 140 mmol/L (136-145); Total Bilirubin 0.4 mg/dL (0.15-1.2); Total Iron Binding Capacity 314 mcg/dl; Total Protein 6.2 g/dL (6.6-8.7); Unsaturated Iron Binding 235 ug/dL (112-347)
[2024-10-01 10:37] LABS: White Blood Count 67.69 10^3/uL (3.29-11.43)
[2024-10-01 10:38] LABS: Slide Review Slide Review Perform
[2024-10-01 10:55] LABS: Folate Level 15.5 ng/mL (4.8-37.3)
[2024-10-01 10:58] LABS: Immunoglobulin IGA < 50 mg/dL (70-400); Immunoglobulin IGG < 300 mg/dL (700-1600); Immunoglobulin IGM < 25 mg/dL (40-230)
[2024-10-01 13:11] LABS: Vitamin B12 > 2000 pg/mL (232-1245)
[2024-10-02 07:38] LABS: PROTEIN, TOTAL 6.3 g/dL (6.1-8.1)
[2024-10-02 20:20] LABS: ALBUMIN 4.4 g/dL (3.8-4.8); ALPHA 1 GLOBULIN 0.3 g/dL (0.2-0.3); ALPHA 2 GLOBULIN 0.8 g/dL (0.5-0.9); BETA 1 GLOBULIN 0.4 g/dL (0.4-0.6); BETA 2 GLOBULIN 0.3 g/dL (0.2-0.5); GAMMA GLOBULIN 0.2 g/dL (0.8-1.7)
[2024-10-06 20:25] LABS: Immunofixation Serum Normal pattern.
== END 2024-10-17 23:59 | disposition home or self-care (01) ==
PROVIDERS: Internal Medicine; PCP Family Medicine; Visit Provider Internal Medicine Medical Oncology
DX: C91.10 Chronic lymphocytic leukemia of B-cell type not having achieved remission; D64.9 Anemia, unspecified; M81.0 Age-related osteoporosis without current pathological fracture; Z79.899 Other long term (current) drug therapy; I26.99 Other pulmonary embolism without acute cor pulmonale; Z86.16 Personal history of COVID-19; Z79.01 Long term (current) use of anticoagulants; Z53.9 Procedure and treatment not carried out, unspecified reason
CPT/HCPCS: 36415; 80053; 82607; 82728; 82746; 82784; 83010; 83540; 83550; 83615; 84155; 84165; 85025; 85045; 86334; 99213; 99214

== ENCOUNTER 2025-01-01 10:00 | Oncology outpatient (recurring) (ONCR) | payer MEDICARE, SELFPAY ==
[2024-12-19] MEDS: acetaminophen 325 mg Tablet 650 MG PO (09:58)
[2024-12-19] MEDS: zoledronic acid 5 MG in empty flexible container 1 EACH 400 MG IV (10:12)
[2024-12-19 12:02] VITALS: BP 112/66; PULSE 64; RESP 16; TEMP 36.8; O2SAT 98
[2025-01-01 10:20] LABS: Basophils # 0.2 10^3/uL (0.0-0.1); Basophils % 0.2 %; Eosinophils # 0.3 10^3/uL (0.0-0.8); Eosinophils % 0.3 %; Hematocrit 36.6 % (36-47); Lymphocytes # 84.5 10^3/uL (0.8-4.8); Lymphocytes % 90.9 %; Mean Corpuscular HGB Conc 30.9 g/dL (30-55); Mean Corpuscular Hemoglobin 29.7 pg (27-33); Mean Corpuscular Volume 96.3 fl (85-98); Mean Platelet Volume 10.5 fL (7.4-10.4); Monocytes # 2.6 10^3/uL (0.2-0.9); Monocytes % 2.8 %; Neutrophils # 5.31 10^3/uL (1.8-7.7); Neutrophils % 5.6 %; Nucleated Red Blood Cells % 0 %; Platelet Count 194 10^3/cmm (157-399); Red Cell Distribution Width 15.3 % (12.1-15.1)
[2025-01-01 10:30] LABS: Erythrocyte Sedimentation Rate < 1 mm/hr (0-15)
[2025-01-01 10:45] LABS: D Dimer 0.29 ug/mLFEU (0-0.59)
[2025-01-01 10:47] LABS: Alanine Aminotransferase 10 U/L (0-33); Albumin Level 4.5 g/dL (3.5-5.2); Alkaline Phosphatase 117 U/L (35-105); Anion Gap 16.7 (5-19); Aspartate Amino Transferase 19 U/L (0-32); Blood Urea Nitrogen 10 mg/dL (8-23); Calcium 9.1 mg/dL (8.5-10.5); Carbon Dioxide 24 mmol/L (22-29); Chloride 107 mmol/L (98-107); Globulin 1.9 g/dL (1.3-4.6); Glucose 89 mg/dL (65-115); Lactate Dehydrogenase 164 U/L (135-214); Osmolality Calculated 295 mOsm/kg (285-295); Potassium 4.7 mmol/L (3.5-5.1); Sodium 143 mmol/L (136-145); Total Bilirubin 0.4 mg/dL (0.15-1.2); Total Protein 6.4 g/dL (6.6-8.7); Uric Acid 4.1 mg/dL (2.4-5.7)
[2025-01-01 11:11] LABS: Slide Review Slide Review Perform; White Blood Count 92.98 10^3/uL (3.29-11.43)
== END 2025-01-17 23:59 | disposition home or self-care (01) ==
PROVIDERS: Internal Medicine; PCP Family Medicine; Visit Provider Internal Medicine Medical Oncology
DX: Z53.9 Procedure and treatment not carried out, unspecified reason (principal); C91.10 Chronic lymphocytic leukemia of B-cell type not having achieved remission; D64.9 Anemia, unspecified; I26.99 Other pulmonary embolism without acute cor pulmonale; Z86.16 Personal history of COVID-19; M81.0 Age-related osteoporosis without current pathological fracture; Z79.01 Long term (current) use of anticoagulants; Z98.890 Other specified postprocedural states
CPT/HCPCS: 36415; 80053; 83615; 84550; 85025; 85378; 85651; 96365; 99214; J3489; J9999

== ENCOUNTER 2025-03-03 12:51 | Oncology outpatient (recurring) (ONCR) | payer MEDICARE, SELFPAY ==
[2025-03-03 13:14] LABS: Hematocrit 35.1 % (36-47); Hemoglobin 11.10 g/dL (11.27-16.99); Mean Corpuscular HGB Conc 31.6 g/dL (30-55); Mean Corpuscular Hemoglobin 30.7 pg (27-33); Mean Corpuscular Volume 97.0 fl (85-98); Nucleated Red Blood Cells % 0 %; Platelet Count 175 10^3/cmm (157-399); Red Blood Count 3.62 10^6/uL (3.85-5.65)
[2025-03-03 13:33] LABS: Alanine Aminotransferase 10 U/L (0-33); Albumin Level 4.5 g/dL (3.5-5.2); Alkaline Phosphatase 107 U/L (35-105); Anion Gap 16.8 (5-19); Aspartate Amino Transferase 20 U/L (0-32); Blood Urea Nitrogen 9 mg/dL (8-23); Calcium 9.1 mg/dL (8.5-10.5); Carbon Dioxide 24 mmol/L (22-29); Chloride 105 mmol/L (98-107); Globulin 1.8 g/dL (1.3-4.6); Glucose 82 mg/dL (65-115); Osmolality Calculated 290 mOsm/kg (285-295); Potassium 4.8 mmol/L (3.5-5.1); Sodium 141 mmol/L (136-145); Total Protein 6.3 g/dL (6.6-8.7)
[2025-03-03 13:34] LABS: Slide Review Slide Review Perform; White Blood Count 93.01 10^3/uL (3.29-11.43)
[2025-03-03 13:47] LABS: Vitamin B12 1663 pg/mL (232-1245)
== END 2025-03-19 23:59 | disposition home or self-care (01) ==
PROVIDERS: PCP Family Medicine; Visit Provider Internal Medicine Medical Oncology
DX: C91.10 Chronic lymphocytic leukemia of B-cell type not having achieved remission (principal); D64.9 Anemia, unspecified; M81.0 Age-related osteoporosis without current pathological fracture
CPT/HCPCS: 36415; 80053; 82607; 82746; 85025; 99214

== ENCOUNTER 2025-06-16 12:36 | Oncology outpatient (recurring) (ONCR) | payer MEDICARE, SELFPAY ==
[2025-06-16 12:54] LABS: Hematocrit 38.0 % (36-47); Hemoglobin 11.80 g/dL (11.27-16.99); Mean Corpuscular HGB Conc 31.1 g/dL (30-55); Mean Corpuscular Hemoglobin 30.0 pg (27-33); Mean Corpuscular Volume 96.7 fl (85-98); Platelet Count 194 10^3/cmm (157-399); Red Blood Count 3.93 10^6/uL (3.85-5.65)
[2025-06-16 13:08] LABS: Alanine Aminotransferase 10 U/L (0-33); Albumin Level 4.7 g/dL (3.5-5.2); Alkaline Phosphatase 122 U/L (35-105); Anion Gap 18.0 (5-19); Aspartate Amino Transferase 19 U/L (0-32); Blood Urea Nitrogen 8 mg/dL (8-23); Calcium 9.6 mg/dL (8.5-10.5); Carbon Dioxide 24 mmol/L (22-29); Chloride 103 mmol/L (98-107); Globulin 1.7 g/dL (1.3-4.6); Glucose 82 mg/dL (65-115); Osmolality Calculated 287 mOsm/kg (285-295); Potassium 5.0 mmol/L (3.5-5.1); Sodium 140 mmol/L (136-145); Total Protein 6.4 g/dL (6.6-8.7)
[2025-06-16 13:24] LABS: White Blood Count 100.70 10^3/uL (3.29-11.43)
[2025-06-16 13:27] LABS: Slide Review Slide Review Perform
== END 2025-06-19 23:59 | disposition home or self-care (01) ==
PROVIDERS: PCP Family Medicine; Visit Provider Internal Medicine Medical Oncology
DX: Z53.9 Procedure and treatment not carried out, unspecified reason; C91.10 Chronic lymphocytic leukemia of B-cell type not having achieved remission; M81.0 Age-related osteoporosis without current pathological fracture; R03.0 Elevated blood-pressure reading, without diagnosis of hypertension; D64.9 Anemia, unspecified; Z79.01 Long term (current) use of anticoagulants; Z79.899 Other long term (current) drug therapy
CPT/HCPCS: 36415; 80053; 85025; 99214

== ENCOUNTER 2025-08-17 10:16 | Outpatient (CLI) | payer MEDICARE, SELFPAY ==
--- NOTE | 2025-08-17 10:40 | MM_ITS ---
WS: [id number] BILATERAL SCREENING DIGITAL TOMOSYNTHESIS MAMMOGRAM WITH CAD HISTORY: screening COMPARISON: 08/08/2024, 06/26/2023 Bilateral CC and MLO views with tomosynthesis and synthetic mammography submitted. Computer aided detection analyzed. Breast composition: There are scattered areas of fibroglandular density. No suspicious masses, microcalcifications or architectural distortion. MM/MM scr BI tomosynthesis [id number] IMPRESSION: BI-RADS: 1 - Negative. FOLLOW UP: 1 Year Follow-up
== END 2025-08-17 10:17 | disposition home or self-care (01) ==
LOC: RAD 10:16
PROVIDERS: PCP Family Medicine; Visit Provider Family Medicine
DX: Z12.31 Encounter for screening mammogram for malignant neoplasm of breast (principal); Z00.00 Encounter for general adult medical examination without abnormal findings; R92.323 Mammographic fibroglandular density, bilateral breasts
CPT/HCPCS: 77063; 77067